=== PATIENT | male | born 1965 | race Caucasian/White ===

== ENCOUNTER 2019-11-12 12:50 | Inpatient (IN) ==
[2019-11-12] MEDS ORDERED: NITROGLYCERIN SL 0.4 MG/TAB TAB SL PRN ×2 (13:06→16:00)
[2019-11-12] MEDS ORDERED: ASPIRIN CHEW 324 MG PO STA (13:07)
--- NOTE | 2019-11-12 13:13 | Emergency Department Note ---
Impression & Plan NSTEMI (non-ST elevated myocardial infarction), Unstable angina pectoris, HTN (hypertension) ED Provider Note NAME: DEL WILLSON AGE: 54 SEX: M : 1965 ARRIVES VIA: Walk-In INFORMANT: Patient ED PROVIDER(S): Elmer Soliman DO CHIEF COMPLAINT: Chest pain HPI: Patient is a 54-year-old male who presents the ER for precordial chest pain. It started around 9 to 10 AM this morning. He describes it as a heaviness. Pain is about a 3-4 out of 10. Has some achiness in his left shoulder. No nausea vomiting, or diarrhea. No dysuria, urgency or frequency. He has never had anything like this before. He does have a history of hypertension. Denies diabetes, hyperlipidemia, CAD or sudden in his family young age. Parents do have a history of previous [place]. No other exacerbating or remitting factors. ROS: See above HPI for pertinent positives & negatives. A total of 10 systems reviewed and were otherwise negative. PAST MEDICAL HISTORY:See Below PAST SURGICAL HISTORY:See Below FAMILY HISTORY:See Below SOCIAL HISTORY:See Below HOME MEDICATIONS:See Below ALLERGIES:See Below VITALS:See Below PHYSICAL EXAMINATION: GENERAL: Sitting up in bed, alert, slightly ill-appearing, disheveled EYE EXAM: normal conjunctiva. OROPHARYNX: no exudate, no erythema, lips, buccal mucosa, and tongue normal and mucous membranes are moist NECK: supple, no nuchal rigidity, no adenopathy, non-tender LUNGS: Clear to auscultation. Normal chest wall mechanics HEART: no murmurs, S1 normal and S2 normal ABDOMEN: abdomen soft, non-tender, normo-active bowel sounds, no masses, no rebound or guarding. BACK: Back is symmetrical on inspection and there is no deformity, no midline tenderness, no CVA tenderness. SKIN: no rashes and no bruising UPPER EXTREMITIES: upper extremities are grossly normal. LOWER EXTREMITIES: No pitting edema. NEURO EXAM: Normal sensorium, cranial nerves II-XII grossly intact, normal speech, no gross weakness of arms, no gross weakness of legs. MEDICAL DECISION MAKING: Patient is a 54-year-old male who presents the ER for midsternal chest pain. Upon arrival initial EKG showed ST depressions in the high lateral leads with ST segment elevation in lead III nonspecific ST wave changes in the lateral leads. This was repeated about 10 minutes later and then repeated again. EKG did improve. He was given 1 dose of nitro and his systolic blood pressures were in the 200s. Pressures dropped down to the low 100s at baseline and eventually came back up to the 130s to 140s. Heart rate was about 60s. With the improvement of the systolic blood pressures but still persistent chest pain consulted cardiology as he was having dynamic changes. At that time troponin came back as Dr. Zapata presented to bedside and was positive. After discussion with Dr. Zapata discussed with the armored service technician who immediately presented to a 9. Patient was placed on a heparin drip after heparin bolus. He had no risk for b leeding and denied any vomiting blood, coughing up blood, urinating blood, dark tarry stools, recent surgery, recent trauma or previous brain bleeds. Labs show no significant leukocytosis or anemia. INR was unremarkable. BMP was unremarkable as well as LFTs bilirubin. Troponin was elevated 0.216. Lipase normal. Dr. Zapata discussed with Dr. Sommre and patient went directly to the Development Architect. Patient family were updated bedside multiple times. Triage Nursing notes reviewed. Prior medical records reviewed Vital Signs: reviewed and remarkable for HTN Differential diagnosis: ER treatment provided: See below Diagnostics interpreted by me: ECG: Sinus rhythm rate of [address] elevation in V3 Depressions in the high lateral Nonspecific ST wave changes in V3 through V6 New from old EKG September 2017 Second EKG Sinus rhythm rate of [address] depressions in the high lateral leads in V3 through V6 Improved from EKG #1 Third EKG Sinus rhythm rate of [address] depressions in the high lateral leads Nonspecific ST wave changes in the lateral leads Normal QTC Cardiac Monitoring: An order was placed for continuous cardiac monitoring. The monitor shows a rate of 71 with sinus rhythm. Laboratory studies: As stated above and show below. Imaging studies: Portable AP upright 1 view of the chest shows no focal infiltrate or pneumothorax Consultation(s): Discussed with Dr. Eliseo Zapata who evaluated the patient at bedside. Recommended echo and patient was taken to the Development Architect. ED COURSE: Procedures: none Critical Care: I have personally spent 80 minutes of critical care time in the direct management of this patient. This includes bedside care, interpretation of diagnostic studies, and testing, discussion with consultants, patient, and family members, and other required patient management activities. This 80 minutes is in excess of all separately billable procedures. Past Med/Surg History Medical History (Updated 11/12/19 @ 17:14 by Elmer Soliman DO) HTN (hypertension) Surgical History (Updated 11/12/19 @ 16:07 by Yvonne Saxena PA-C) History of colonoscopy Family History Father Heart disease Colorectal cancer Mother Rheumatoid arthritis Social History (Updated 11/12/19 @ 16:09 by Yvonne Saxena PA-C) Smoking Status: Never smoker Hx Alcohol Use: Yes Alcohol type: beer Alcohol Intake Frequency: Monthly or Less Hx Substance Use: No Preferred Language: Beninese Communication Ability: Effective Urban Forester Required: No Beliefs That Will Affect Care: None Current Living Situation: Spouse and Family 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 [employer] Feels Safe at Home: Yes Safety Concerns: Feels Safe At This Time Allergies Allergies Allergy/AdvReac Type Severity Reaction Status Date / Time No Known Allergies Allergy Unverified 11/12/19 13:47 Home Meds Home Medications Medication Instructions Recorded Confirmed lisinopril 10 mg PO QAM 11/12/19 11/12/19 Results & Data (ED) Vital Signs Vital Signs - 24 hr 11/12/19 12:55 11/12/19 13:00 11/12/19 13:14 Temperature 36.7 C Temperature Source Oral Pulse Rate 76 94 H Pulse Rate from SpO2 Sensor 89 Respiratory Rate 18 15 Blood Pressure 180/120 H 205/125 H Blood Pressure Mean 140 157 Pulse Oximetry 96 95 94 Oxygen Delivery Method Room Air Room Air Sepsis Recent Fever Within 48 Hours No Sepsis New/Unexplained Change in Mental Status N/A Sepsis Action Taken by Nursing No Action Required 11/12/19 13:17 11/12/19 13:20 11/12/19 13:26 Temperature Temperature Source Pulse Rate 80 66 60 Pulse Rate from SpO2 Sensor 77 66 61 Respiratory Rate 25 H 11 L 11 L Blood Pressure 153/92 H 109/66 108/71 Blood Pressure Mean 106 84 84 Pulse Oximetry 95 95 95 Oxygen Delivery Method Sepsis Recent Fever Within 48 Hours Sepsis New/Unexplained Change in Mental Status Sepsis Action Taken by Nursing 11/12/19 13:30 11/12/19 13:31 11/12/19 14:01 Temperature Temperature Source Pulse Rate 64 73 79 Pulse Rate from SpO2 Sensor 65 72 76 Respiratory Rate 22 15 21 Blood Pressure 134/80 152/97 H Blood Pressure Mean 90 115 Pulse Oximetry 95 94 95 Oxygen Delivery Method Sepsis Recent Fever Within 48 Hours Sepsis New/Unexplained Change in Mental Status Sepsis Action Taken by Nursing Laboratory Data Result diagrams: 11/12/19 13:00 11/12/19 13:00 Lab Results 11/12/19 11/12/19 11/12/19 Range/Units 13:00 13:00 13:00 WBC 9.15 (4.8-10.8) K/uL RBC 5.57 (4.7-6.1) M/uL Hgb 17.0 (14.0-18.0) g/dL Hct 47.8 (42-52) % MCV 85.8 (80-100) fL MCH 30.5 (25-34) pg MCHC 35.6 (32-36) g/dL RDW Std Deviation 41.2 (36.4-46.3) fL RDW Coeff of Terrell 13.0 (11.5-14.5) % Plt Count 284 (130-400) K/uL MPV 10.8 H (7.4-10.4) fL Immature Gran % (Auto) 0.3 % Neut % (Auto) 76.5 % Lymph % (Auto) 18.7 % [place] % (Auto) 3.8 % Eos % (Auto) 0.4 % Baso % (Auto) 0.3 % Neut # (Auto) 6.99 H (1.4-6.5) K/uL Lymph # (Auto) 1.71 (1.2-3.4) K/uL [place] # (Auto) 0.35 (0.11-0.59) K/uL Eos # (Auto) 0.04 (0-0.5) K/uL Baso # (Auto) 0.03 (0-0.2) K/uL Immature Gran # (Auto) 0.03 H (0.00-0.02) K/uL PT 9.5 (9.0-12.0) Seconds INR 0.9 (0.9-1.1) APTT 28.5 (21.0-31.0) Seconds PTT Ratio 1.0 Activ Coag Time Kaolin (94-140) SECONDS Sodium 138 (136-145) mmol/L Potassium 3.7 (3.5-5.1) mmol/L Chloride 109 H (98-107) mmol/L Carbon Dioxide 21 (21-32) mmol/L Anion Gap 8.0 (3-11) BUN 13 (7-18) mg/dl Creatinine 1.05 (0.6-1.4) mg/dl Est Cr Clr Drug Dosing 106.8 ml/min Est GFR ( Amer) 94.1 Est GFR (Non-Af Amer) 81.2 BUN/Creatinine Ratio 12.8 (10-20) Glucose 110 H (70-99) mg/dl Calcium 9.4 (8.5-10.1) mg/dl Total Bilirubin 0.4 (0.2-1) mg/dl AST 19 (15-37) U/L ALT 49 (12-78) U/L Alkaline Phosphatase 90 (45-117) U/L Troponin I 0.216 H* (0-0.045) ng/ml Total Protein 8.1 (6.4-8.2) gm/dl Albumin 3.8 (3.4-5.0) gm/dl Globulin 4.3 H (2.5-4.0) gm/dl Albumin/Globulin Ratio 0.9 (0.9-2) Lipase 157 (73-393) U/L / Range/Units 15:02 WBC (4.8-10.8) K/uL RBC (4.7-6.1) M/uL Hgb (14.0-18.0) g/dL Hct (42-52) % MCV (80-100) fL MCH (25-34) pg MCHC (32-36) g/dL RDW Std Deviation (36.4-46.3) fL RDW Coeff of Terrell (11.5-14.5) % Plt Count (130-400) K/uL MPV (7.4-10.4) fL Immature Gran % (Auto) % Neut % (Auto) % Lymph % (Auto) % [place] % (Auto) % Eos % (Auto) % Baso % (Auto) % Neut # (Auto) (1.4-6.5) K/uL Lymph # (Auto) (1.2-3.4) K/uL [place] # (Auto) (0.11-0.59) K/uL Eos # (Auto) (0-0.5) K/uL Baso # (Auto) (0-0.2) K/uL Immature Gran # (Auto) (0.00-0.02) K/uL PT (9.0-12.0) Seconds INR (0.9-1.1) APTT (21.0-31.0) Seconds PTT Ratio Activ Coag Time Kaolin 224 H (94-140) SECONDS Sodium (136-145) mmol/L Potassium (3.5-5.1) mmol/L Chloride (98-107) mmol/L Carbon Dioxide (21-32) mmol/L Anion Gap (3-11) BUN (7-18) mg/dl Creatinine (0.6-1.4) mg/dl Est Cr Clr Drug Dosing ml/min Est GFR ( Amer) Est GFR (Non-Af Amer) BUN/Creatinine Ratio (10-20) Glucose (70-99) mg/dl Calcium (8.5-10.1) mg/dl Total Bilirubin (0.2-1) mg/dl AST (15-37) U/L ALT (12-78) U/L Alkaline Phosphatase (45-117) U/L Troponin I (0-0.045) ng/ml Total Protein (6.4-8.2) gm/dl Albumin (3.4-5.0) gm/dl Globulin (2.5-4.0) gm/dl Albumin/Globulin Ratio (0.9-2) Lipase (73-393) U/L Administered Medications Heparin Sodium/Dextrose (Heparin Sodium/Dextrose) 25,000 units in 500 mls @ 20 mls/hr IV .Q24H [facility]; Protocol Stop: 12/12/19 13:44 Last Admin: 11/12/19 13:57 Dose: 1,000 units/hr, 20 mls/hr Documented by: [id number] Cosigned by: [id number] Discontinued Medications Aspirin (Aspirin Chew 324 Mg) 324 mg PO NOW STA Stop: 11/12/19 13:08 Last Admin: 11/12/19 13:10 Dose: 324 mg Documented by: [id number] Fentanyl Citrate (Fentanyl Citrate 100 Mcg/2 Ml Vial) Confirm Administered Dose 100 mcg .ROUTE .STK-MED ONE Stop: 11/12/19 14:24 Last Increment: 11/12/19 15:07 Dose: 50 mcg Documented by: [id number] Heparin Sodium (Porcine) (Heparin Sod (Porcine) 1000 Unit/Ml 10 Ml Vial) Confirm Administered Dose 10,000 units .ROUTE .STK-MED ONE Stop: 11/12/19 13:49 Last Admin: 11/12/19 13:56 Dose: 4,000 units Documented by: [id number] Cosigned by: [id number] Heparin Sodium (Porcine) (Heparin (Porcine) 1000 Unit/Ml 10 Ml (Development Architect Use Only)) Confirm Administered Dose 10,000 units .ROUTE .STK-MED ONE Stop: 11/12/19 14:24 Last Admin: 11/12/19 15:07 Dose: 8,000 units Documented by: [id number] Heparin Sodium/Dextrose (Heparin Iv Low Dose With Bolus) 1 ea IV NOW STA; Protocol Stop: 11/12/19 13:39 Last Admin: 11/12/19 13:57 Dose: Not Given Documented by: [id number] Heparin Sodium/Sodium Chloride (Heparin In Nss Infusion 1000 Unit/500 Ml (2 U/Ml) Bag) Confirm Administered Dose 3,000 units IV .STK-MED ONE Stop: 11/12/19 14:24 Last Admin: 11/12/19 15:08 Dose: 3,000 units Documented by: [id number] Midazolam HCl (Midazolam Hcl 1 Mg/Ml 2ml Vial) Confirm Administered Dose 2 mg .ROUTE .STK-MED ONE Stop: 11/12/19 14:24 Last Increment: 11/12/19 15:08 Dose: 1 mg Documented by: [id number] Nicardipine HCl (Nicardipine Hcl Inj 2.5 Mg/Ml 10 Ml Amp) Confirm Administered Dose 25 mg .ROUTE .STK-MED ONE Stop: 11/12/19 14:24 Last Admin: 11/12/19 15:07 Dose: 25 mg Documented by: [id number] Nitroglycerin (Nitroglycerin Sl 0.4 Mg/Tab Tab) 0.4 mg SL PRN PRN PRN Reason: Anesthesia Stop: 12/12/19 13:05 Last Admin: 11/12/19 13:11 Dose: 0.4 mg Documented by: [id number] Nitroglycerin/Dextrose (Nitroglycerin/D5w 100mcg/Ml 20ml Syr) Confirm Administered Dose 2,000 mcg .ROUTE .STK-MED ONE Stop: 11/12/19 14:24 Last Admin: 11/12/19 15:08 Dose: 2,000 mcg Documented by: [id number] Ticagrelor (Ticagrelor 90 Mg Tab) Confirm Administered Dose 180 mg PO .STdocumistic-MED ONE Stop: 11/12/19 15:08 Last Admin: 11/12/19 15:08 Dose: 180 mg Documented by: [id number] Discharge Plan Visit Data Chief Complaint: Chest Pain Stated Complaint: CHEST TIGHTNESS ED Provider: Elmer Soliman Discharge Problem: NSTEMI (non-ST elevated myocardial infarction), Unstable angina pectoris, HTN (hypertension) Patient Disposition: Admitted As Inpatient Discharge Instructions Interventions: ED Discharge Assessment Last Done: 11/12/19 14:19 Discharge Problem: HTN (hypertension) Qualifiers: Hypertension type: unspecified Qualified Code(s): I10 - Essential (primary) hypertension
[2019-11-12 13:30] LABS: Basophils # (auto) 0.03 K/uL (0-0.2); Basophils % (auto) 0.3 %; Eosinophils # (auto) 0.04 K/uL (0-0.5); Eosinophils % (auto) 0.4 %; Hematocrit (blood only) 47.8 % (42-52); Immature Granulocytes # (auto) 0.03 K/uL (0.00-0.02); Immature Granulocytes % (auto) 0.3 %; Lymphocytes # (auto) 1.71 K/uL (1.2-3.4); Lymphocytes % (auto) 18.7 %; Mean Corpuscular Hemoglobin 30.5 pg (25-34); Mean Corpuscular Hgb Conc 35.6 g/dL (32-36); Mean Corpuscular Volume 85.8 fL (80-100); Mean Platelet Volume 10.8 fL (7.4-10.4); Monocytes # (auto) 0.35 K/uL (0.11-0.59); Monocytes % (auto) 3.8 %; Neutrophils # (auto) 6.99 K/uL (1.4-6.5); Neutrophils % (auto) 76.5 %; Platelet Count 284 K/uL (130-400); RDW Standard Deviation 41.2 fL (36.4-46.3); Red Blood Count 5.57 M/uL (4.7-6.1); White Blood Count 9.15 K/uL (4.8-10.8)
[2019-11-12 13:35] LABS: INR 0.9 (0.9-1.1); Partial Thromboplastin Time 28.5 Seconds (21.0-31.0); Prothrombin Time 9.5 Seconds (9.0-12.0)
--- NOTE | 2019-11-12 13:37 | XRay Report ---
XR chest 1V portable HISTORY: 54 years-old Male Chest Pain acute atypical chest pain COMPARISON: None TECHNIQUE: Portable AP view of the chest FINDINGS: Cardiac silhouette is upper limits of normal in size. Mild left hemidiaphragmatic elevation. No pneum othorax, pleural effusion, overt pulmonary edema or airspace consolidation typical for pneumonia. Deg enerative changes of the shoulders and spine. IMPRESSION: No acute process. ACT 112: Negative or not required by law. The above report was generated using voice recognition software. It may contain grammatical, syntax o r spelling errors. Electronically signed by: Markie Silva M.D. 11/12/2019 1:35 PM
[2019-11-12] MEDS ORDERED: Heparin IV Low Dose WITH Bolus IV STA (13:38)
[2019-11-12 13:45] LABS: Albumin Level 3.8 gm/dl (3.4-5.0); BUN Creatinine Ratio 12.8 (10-20); Calcium 9.4 mg/dl (8.5-10.1); Creatinine Clr Calc Pharmacy 106.8 ml/min; Est GFR (African American) 94.1; Est GFR (Non-African American) 81.2; Potassium 3.7 mmol/L (3.5-5.1)
[2019-11-12] MEDS ORDERED: HEPARIN SODIUM/DEXTROSE 25,000 UNITS/500 ML BAG IV SCH (13:45)
[2019-11-12] MEDS ORDERED: HEPARIN SOD (PORCINE) 1000 UNIT/ML 10 ML VIAL ONE (13:48)
[2019-11-12 13:57] LABS: Albumin Globulin Ratio 0.9 (0.9-2); Bilirubin,Total 0.4 mg/dl (0.2-1); Globulin 4.3 gm/dl (2.5-4.0); Total Protein 8.1 gm/dl (6.4-8.2); Troponin I 0.216 ng/ml (0-0.045)
[2019-11-12] MEDS ORDERED: HEPARIN (PORCINE) 1000 UNIT/ML 10 ML (CATH LAB USE ONLY) ONE (14:23)
[2019-11-12] MEDS ORDERED: MIDAZOLAM HCL 1 MG/ML 2ML VIAL ONE (14:23)
[2019-11-12] MEDS ORDERED: NITROGLYCERIN/D5W 100MCG/ML 20ML SYR ONE (14:23)
[2019-11-12] MEDS ORDERED: fentaNYL citrate 100 MCG/2 ML VIAL ONE (14:23)
[2019-11-12] MEDS ORDERED: NiCARDipine HCL INJ 2.5 MG/ML 10 ML AMP ONE (14:23)
--- NOTE | 2019-11-12 14:27 | Cardiology Consultation ---
Date of Consultation November 12, 2019 Assessment & Plan (1) Substernal precordial chest pain: 54-year-old male with history of hypertension, dyslipidemia presents now with approximately 4 hours substernal chest pain radiating to left arm occurring initially at rest with transient ST elevation noted on EKG and elevated troponin on initial settings consistent with acute coronary syndrome versus hypertensive urgency. Discussed findings in detail with patient recommended proceeding directly d iagnostic cardiac catheterization. IV heparin already initiated in the emergency room Further recommendations to follow (2) Elevated troponin: (3) Hypertensive urgency: (4) Dyslipidemia: History of Present Illness Reason for Consultation: Acute chest pain, elevated troponin Requesting Physician: Dr. Soliman Attending Physician: Dr. Brown History of Present Illness Patient is a 54-year-old male without prior history of cardiac disease his underlying medical issues are notable predominantly for hypertension, mild dyslipidemia and familial history of coronary artery disease . Patient was in usual state of health until this morning when he awoke just "not feeling well" Shortly after he began experiencing symptoms of chest pressure beginning approximately 10 AM this morning. Symptoms worsened to radiate down left shoulder which resulted in ER presentation. On initial ER evaluation patient was significantly hypertensive complaining of chest pain 5-6 out of 10. He was given 1 sublingual nitroglycerin with improvement in symptoms though without complete relief but with improvement hypertension. Initial EKG demonstrated transient ST elevation in lead III with ST depression in lead I Troponin elevated 0.2 Echocardiogram done urgently demonstrated generally preserved LV systolic function with subtle hypokinesis of the posterior wall at the base. Aortic root appeared normal in size and without pathology Patient denies fevers chills sweats recent illness or cold. Notes no melena medication dysuria hematuria. Notes no prior complications with dye administrat ion or sedation No recent or upcoming surgeries planned. No bleeding issues. No recent or upcoming surgeries. No headache visual changes or neurologic complaints. Appetite's been good weight been trending slightly upward. Does note difficulty sleeping at night with marked stressors per . Rare alcohol use, lifelong non-smoker. Lifestyle sedentary Allergies Allergy/AdvReac Type Severity Reaction Status Date / Time No Known Allergies Allergy Unverified 11/12/19 13:47 Home Medications Home Medications Medication Instructions Recorded Confirmed Type lisinopril 10 mg PO QAM 11/12/19 11/12/19 History Patient History Social History Smoking Status: Never smoker Hx Substance Use: No Feels Safe at Home: Yes Review of Systems Review of Systems: All systems reviewed & are unremarkable except as noted in HPI & below Physical Exam Constitutional: WD/WN, vitals as above + obese In mild distress Blood pressures equal in both arms Eyes: PERRL, conjunctivae normal, anicteric sclerae ENMT: external ear and nose normal, oropharynx normal Neck: trachea midline, no thyromegaly Respiratory: normal respiratory effort, lungs clear to auscultation Cardiovascular: Rate/Rhythm: regular rate and regular rhythm Heart Sounds: normal S1 and normal S2; no gallop and no murmur Palpation: normal PMI Vessels: normal carotid upstroke and radial pulses present; no JVD and no carotid bruit Extremities: no edema Gastrointestinal (Abdomen): normal bowel sounds, soft, nontender, no hepatosplenomegaly Femoral pulses equal bilaterally. No femoral or abdominal bruits Musculoskeletal: no cyanosis or clubbing, extremities motor strength 5/5 Skin: no rashes, warm and dry Neurologic: PERRL, EOMI, accommodation nl, no face palsy, no dysarthria Psychiatric: A+Ox3, euthymic affect Results & Data ([facility]) Vital Signs (Past 12 Hours) Vital Signs Temp Pulse Resp BP Pulse Ox 11/12/19 14:01 79 21 152/97 H 95 11/12/19 13:31 73 15 94 11/12/19 13:30 64 22 134/80 95 11/12/19 13:26 60 11 L 108/71 95 11/12/19 13:20 66 11 L 109/66 95 11/12/19 13:17 80 25 H 153/92 H 95 11/12/19 13:14 94 11/12/19 13:00 94 H 15 205/125 H 95 11/12/19 12:55 36.7 C 76 18 180/120 H 96 Laboratory Results Laboratory Results - last 24 hr 11/12/19 11/12/19 11/12/19 13:00 13:00 13:00 WBC 9.15 RBC 5.57 Hgb 17.0 Hct 47.8 MCV 85.8 MCH 30.5 MCHC 35.6 RDW Std Deviation 41.2 RDW Coeff of Terrell 13.0 Plt Count 284 MPV 10.8 H Immature Gran % (Auto) 0.3 Neut % (Auto) 76.5 Lymph % (Auto) 18.7 [place] % (Auto) 3.8 Eos % (Auto) 0.4 Baso % (Auto) 0.3 Neut # (Auto) 6.99 H Lymph # (Auto) 1.71 [place] # (Auto) 0.35 Eos # (Auto) 0.04 Baso # (Auto) 0.03 Immature Gran # (Auto) 0.03 H PT 9.5 INR 0.9 APTT 28.5 PTT Ratio 1.0 Sodium 138 Potassium 3.7 Chloride 109 H Carbon Dioxide 21 Anion Gap 8.0 BUN 13 Creatinine 1.05 Est Cr Clr Drug Dosing 106.8 Est GFR ( Amer) 94.1 Est GFR (Non-Af Amer) 81.2 BUN/Creatinine Ratio 12.8 Glucose 110 H Calcium 9.4 Total Bilirubin 0.4 AST 19 ALT 49 Alkaline Phosphatase 90 Troponin I 0.216 H* Total Protein 8.1 Albumin 3.8 Globulin 4.3 H Albumin/Globulin Ratio 0.9 Lipase 157
--- NOTE | 2019-11-12 14:30 | Pre Anesthesia Assessment ---
Date of Service November 12, 2019 Pre Sedation Assessment Vital Signs Temp Pulse Resp BP Pulse Ox 11/12/19 14:01 79 21 152/97 H 95 11/12/19 13:31 73 15 94 11/12/19 13:30 64 22 134/80 95 11/12/19 13:26 60 11 L 108/71 95 11/12/19 13:20 66 11 L 109/66 95 11/12/19 13:17 80 25 H 153/92 H 95 11/12/19 13:14 94 11/12/19 13:00 94 H 15 205/125 H 95 11/12/19 12:55 98.1 F 76 18 180/120 H 96 Cardiovascular RRR, no murmur, no edema Respiratory normal respiratory effort, lungs clear to auscultation Pre-Sedation Airway Assessment Smoking Status: Never smoker Hx Sleep Apnea: No Hx Difficult Intubation: No Short, Thick Neck: No Thyromental Distance: > or= 3.5 Finger Breadths Mallampati Class: III ASA: ASA3 Procedure Planning Contraindications for Sedation: none Current Medications Reviewed: Yes Notes The planned sedation has been discussed with the patient. Informed Consent was obtained. I have identified the patient, determined the appropriateness of sedation and have assessed the patient immediately prior to the procedure. All medicine(s) and interventions are by my order.
[2019-11-12] MEDS ORDERED: TICAGRELOR 90 MG TAB PO ONE (15:07)
--- NOTE | 2019-11-12 15:11 | Post Anesthesia Assessment ---
Date of Service November 12, 2019 Post Sedation Assessment Vital Signs Temp Pulse Resp BP Pulse Ox 11/12/19 14:01 79 21 152/97 H 95 11/12/19 13:31 73 15 94 11/12/19 13:30 64 22 134/80 95 11/12/19 13:26 60 11 L 108/71 95 11/12/19 13:20 66 11 L 109/66 95 11/12/19 13:17 80 25 H 153/92 H 95 11/12/19 13:14 94 11/12/19 13:00 94 H 15 205/125 H 95 11/12/19 12:55 98.1 F 76 18 180/120 H 96 Recovery Score Activity: Moves 4 extremities Respiration: Deep Breath/Cough Circulation: +/-20% PreAnes Value Consciousness: Fully Awake Oxygen Saturation: O2 needed for >90% Discharge Sedation Level of Care: Fast Track Phase II Post Sedation Plan On clinical assessment, the patient appears to have tolerated the sedation without complications. Patient is recovering as anticipated. Patient will continue to be monitored by nursing and may be discharged when sedation discharge criteria are met per below protocol. Upon Completions of procedure up to 15 minutes continue every 5 minute vital signs and the P.A.R. score; then discharge to a Phase I or Fast Track to Phase II per the following guidelines: * Discharge Patient to appropriate Phase II area if PAR is 8 or greater or return to pre- procedure baseline. The post - procedure orders will be as directed. * If PAR score is less than 8 or not return to pre-procedure baseline then patient will follow Phase I monitoring till PAR is reached for Phase II. The Phase I may be done in procedure room or may call to secure a Phase I area. * If naloxone or flumazenil are used for reversal, hold in Phase I for continued monitoring from when last reversal dose was given for a minimum of 60 minutes or longer pending the nurse and/or physician discretion of patient condition before discharge to Phase II. Please call the Sedation Physician to re-evaluate and complete post-note for discharge to Phase II area. Do NOT discharge from procedure sedation or Phase 1 until post- sedation evaluation note is complete by procedure /sedation MD Sedation Discharge Instructions to be given to the patient at discharge to home.
[2019-11-12] MEDS ORDERED: SODIUM CHLORIDE 0.9% 1000ML 1,000 ML IV SCH (15:30)
--- NOTE | 2019-11-12 15:32 | Cardiac Catheterization ---
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 Cardiac Status Clinical evaluation leading to the procedure CAD Presenation: Non STEMI Anginal Classification: CCS IV Heart Failure: No Cardiogenic Shock within 24 Hours: No Cardiac Arrest within 24 Hours: No Imaging Studies Past 6 Months: Yes Stress Studies Past 6 Months: No Diagnostic Physicians Name: Tony Sommer MD Status: Urgent Closure Device Percutaneous Entry Location: Radial Closure Device: Radial Band Recommendations: PCI without planned CABG PCI Indication: PCI for high risk Non-LIZZ Lesion Segment Name: Mid RCA Culprit Artery: Yes Stenosis Prior to Rx (%): 100 Chronic Total Occlusion: No IVUS: No FFR: No Pre-Procedure RAIN Flow: 0 Previously Treated Lesion: No Lesion Complexity: Non-High/Non-C Lesion Length (mm): 15 Thrombus Present: Yes Bifurcation Lesion: No Guidewire Across Lesion: Stenosis Post-Procedure (%): 0 Post-Procedure RAIN Flow: 3 Devices(s) Deployed: Yes Yes Intraprocedure Events Significant Disection: No Perforation: No Cardiac Cath Procedure Full Procedure Date November 12, 2019 Pre-Procedure Diagnosis Pre-Procedure Diagnosis: Non STEMI AUC Score AUC Score: 8 Post-Procedure Diagnosis Post-Procedure Diagnosis: Severe CAD, Successful PCI and Normal Intracardiac Pressures Procedure(s) Performed Procedure(s) Performed: Coronary Angiography, Left Heart Cath and Drug Eluting Stent Human Resources Services Specialist Tony Sommer MD Pan Washer Hand(s) Carrasco Estimated Blood Loss Estimated Blood Loss: 15 Medication(s) Medication(s): Fentanyl, Heparin, Lidocaine 1%, Nicardipine, Nitroglycerin and Versed Medication(s): Ticagrelor Summary of Findings Indication: High risk NSTEMI with subtle inferior ST elevation Access: 6 Fr slender right radial artery Catheters: Valliant, JL 3.5, JR4 guide Findings: LM -large caliber, angiographically normal LAD -medium caliber vessel, proximal luminal irregularities, distal vessel widely patent as wraps around apex. Large second diagonal with 20 to 30% proximal disease Circumflex -medium caliber, proximal luminal irregularities. Large caliber OM 2 with 30 to 40% disease in proximal aspect of inferior branch. RCA -dominant, medium caliber, 100% acute mid RCA occlusion LVEDP -14 -- PCI -- Antithrombotic therapy: Heparin, ticagrelor Procedure: RCA cannulated with JR4 guide BMW wire passed across lesion into distal vessel Mid RCA lesion predilated with 2.5 compliant balloon Dilated lesion stented with 3.0 x 22 mm Torsten drug-eluting Stent post-dilated with 3.5 noncompliant balloon IC vasodilators administered for spasm Post procedure RAIN 3 flow, stent well expanded with minimal residual stenosis and no apparent cardiac complications. Arterial Closure: TR band Summary: 1. Acute 100% mid RCA occlusion 2. Mild non-culprit coronary artery disease 3. Normal intracardiac filling pressure 4. Successful PCI of mid RCA with single drug-eluting stent (3.0 x 22 Torsten; postdilated with 3.5 NC) Recommendations: Admit to PCU for continued monitoring Loaded with ticagrelor 180 mg in Diesel Instructor Continue dual-antiplatelet therapy for at least 1 year. Trend troponins until peak Uptitrate beta-steve/HIPOLITO as BP allows High-dose statin Consult cardiac Rehab Hemodynamics Rest Ao:: 135/80/102 Final Ao: 115/72/90 LV: 131/14 Recommendations Recommendations: PCI without planned CABG Specimens Specimens: None Radiation Exposure (mGy) 1788 Contrast (mls) 65 Fluids (cc crystalloids) Fluids (cc crystalloids): 52 Drains Drains: None Anesthesia Moderate Procedural Complication(s) None Disposition PCU I attest to the content of the Intraoperative Record and any orders documented therein. Any exceptions are noted below. [facility] Card Cath Procedure Codes Cardiac Catheterization Procedure 1: Cardiovascular Cath Procedures: 11137 Coronaries and LHC (+/-LV) Moderate Sedation Procedure 1: Sedation/Anesthesia: 49082 Mod Sedation by the same physician;Init15 Min Child Age 5 & Up Procedure 2: Sedation/Anesthesia: 59289 Mod Sedation by the same physician; Ea [id number] Minutes Stenting Procedure 1: Cardiovascular Stent Procedures: 44548 Perc transluminal revascularization of acute sub/total occl, aMI PG Care Time/CCT Total # of Minutes Spent Total Time Spent with Patient: Total time spent is greater than 50% in c oordination of care (as documented) at patient's floor/unit and/or counseling patient:
[2019-11-12] MEDS ORDERED: ACETAMINOPHEN 325 MG TAB PO PRN (16:00)
[2019-11-12] MEDS ORDERED: ONDANSETRON INJ 2 MG/ML 2 ML VIAL IV PRN (16:00)
[2019-11-12] MEDS ORDERED: MoRPHine SULFATE 10 MG/ML CARP/VIAL IV PRN (16:00)
--- NOTE | 2019-11-12 16:06 | History & Physical Report ---
Date of Service November 12, 2019 Assessment & Plan (1) NSTEMI (non-ST elevated myocardial infarction): This is a 54yo M with a PMH of HTN and mild dyslipidemia who presented to ED earlier today with NSTEMI and is s/p PCI to mid RCA. -Initial EKG with transient ST elevation in lead III and troponin of 0.216 in setting of elevated BP of 180/120 and chest pain -Dr. Zapata evaluated patient with bedside echo revealing preserved LV systolic function with subtle hypokinesis of the posterior wall at the base -Underwent cardiac catheterization by Dr. Sommer and found to have acute 100% mid RCA occlusion. S/p ROXANA x 1 to mid RCA -Loaded with ticagrelor 180 mg in Probe Operator. Continue dual-antiplatelet therapy for at least 1 year. -Admit to PCU for continued monitoring- Per Dr. Sommer: trend troponin until peak, up-titrate beta-steve/HIPOLITO as BP allows, high-dose statin, cardiac rehab consulted (2) HTN (hypertension): Started on metoprolol tartrate 25mg BID. Continue home lisinopril dose (3) Dyslipidemia: Atorvastatin 80mg daily DVT Ppx: SCDs for now Code status: FULL PCP: Dior Dispo: Admitted to PCU. Plan to return home once medically stable. Patient seen in collaboration with Dr. Brown. Please see addendum. History of Present Illness Chief Complaint: CP Primary Care Provider: Osmany Rader DO This is a 54yo M with a PMH of HTN and mild dyslipidemia who presented to ED earlier today with chest pain and is s/p PCI to mid RCA. Woke up this morning tired and developed chest pressure around 9 am. Pain was described as 5/10 pres sure with radiation to left shoulder. Upon arrival to ED, patient noted to elevated BP at 180/120 as well as initial EKG with transient ST elevation in lead III. Was given 1 sublingual nitroglycerin with improvement in symptoms. Repeat EKG still with mild ST depression in V3 through V6 but resolution of ST elevation in III. Initial troponin elevated at 0.216. Dr. Zapata evaluated the patient in ED with bedside echo revealing preserved LV systolic function with subtle hypokinesis of the posterior wall at the base. Patient then taken to the Probe Operator, where he was found to have acute 100% mid RCA occlusion and underwent PCI by Dr. Sommer with 1 drug-eluting stent to mid RCA. Patient seen and evaluated upon arrival to PCU. Lightheadedness and chest pressure have resolved. Still feeling tired with some mild residual chest discomfort, /. Denies any fever, chills, visual changes, palpitations, SOB, wheezing, abdominal pain, nausea, vomiting, dysuria, diarrhea or constipation. 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 Allergies Allergy/AdvReac Type Severity Reaction Status Date / Time No Known Allergies Allergy Unverified 11/12/19 13:47 Home Medications Home Medications Medication Instructions Recorded Confirmed Type lisinopril 10 mg PO QAM 11/12/19 11/12/19 History Past Med/Surg History Medical History (Updated 11/12/19 @ 17:14 by Elmer Soliman DO) HTN (hypertension) Surgical History (Updated 11/12/19 @ 16:07 by Yvonne Saxena PA-C) History of colonoscopy Family History Father Heart disease Colorectal cancer Mother Rheumatoid arthritis Social History Smoking Status: Never smoker Hx Alcohol Use: Yes Alcohol type: beer Alcohol Intake Frequency: Monthly or Less Hx Substance Use: No Preferred Language: Serbian Communication Ability: Effective Director Foundation Required: No Beliefs That Will Affect Care: None Current Living Situation: Spouse and Family 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 Physical Exam Physical Exam: General Appearance: WD/WN, vitals as above, NAD, sitting up in bed, pleasant, conversing easily Head: normocephalic, atraumatic Eyes: normal inspection, PERRL, conjunctivae normal, anicteric sclerae ENT: external ear and nose normal, oropharynx normal Neck: normal visual inspection, trachea midline, no thyromegaly Respiratory: normal respiratory effort, lungs clear to auscultation, no wheeze, rales, rhonchi. No accessory muscle use Cardiovascular: regular rate, rhythm, no murmur, normal peripheral pulses, no BLE edema. Vessels: no JVD Chest: normal inspection of chest Abdomen/GI: normal bowel sounds, soft, nontender, no hepatosplenomegaly Extremities/Musculoskeletal: no cyanosis or clubbing, extremities motor strength 5/5 Neurologic: PERRL, EOMI, accommodation nl, no face palsy, no dysarthria, CN's II-XI intact bilaterally and moves all extremities Psychiatric: A+Ox3, euthymic affect Skin: no rashes, normal color, warm/dry Results & Data Results & Data ([facility]) Vital Signs (Past 12 Hours) Vital Signs Temp Pulse Pulse Resp BP BP Pulse Ox 11/12/19 15:45 62 18 128/83 98 11/12/19 15:30 62 18 148/86 H 98 11/12/19 15:15 85 148/86 H 98 11/12/19 14:01 79 21 152/97 H 95 11/12/19 13:31 73 15 94 11/12/19 13:30 64 22 134/80 95 11/12/19 13:26 60 11 L 108/71 95 11/12/19 13:20 66 11 L 109/66 95 11/12/19 13:17 80 25 H 153/92 H 95 11/12/19 13:14 94 11/12/19 13:00 94 H 15 205/125 H 95 11/12/19 12:55 36.7 C 76 18 180/120 H 96 Laboratory Results Short CBC 11/12/19 Range/Units 13:00 WBC 9.15 (4.8-10.8) K/uL Hgb 17.0 (14.0-18.0) g/dL Hct 47.8 (42-52) % Plt Count 284 (130-400) K/uL BMP 11/12/19 13:00 Sodium 138 Potassium 3.7 Chloride 109 H Carbon Dioxide 21 BUN 13 Creatinine 1.05 Glucose 110 H Calcium 9.4 Cardiac Enzymes 11/12/19 Range/Units 13:00 Troponin I 0.216 H* (0-0.045) ng/ml Liver Function 11/12/19 Range/Units 13:00 Total Bilirubin 0.4 (0.2-1) mg/dl AST 19 (15-37) U/L ALT 49 (12-78) U/L Alkaline Phosphatase 90 (45-117) U/L Albumin 3.8 (3.4-5.0) gm/dl Diagnostic Findings CXR: IMPRESSION: No acute process. ECG Findings: + ST depression and + ST elevation Additional Comments: see HPI for details Code Status & VTE Plan VTE Prophylaxis Plan VTE Prophylaxis will be ordered: Yes Supervising Physician Co-Signing Physician Notes I have seen and examined the patient and have discussed the case with the provider above. I agree with the assessment and plan as stated. 54 yo / with NSTEMI, s/p evaluation in the laborer operator with mid RCA stent. Currently free of pain, nausea and feeling well. He denies SOB. My findings reflect that listed above. Cont medical management with any other cardiology recs at discharge. DO Omkar Brown
--- NOTE | 2019-11-12 16:30 | Electrocardiogram Report ---
Test Reason : Blood Pressure : / mmHG Vent. Rate : 076 BPM Atrial Rate : 076 BPM P-R Int : 142 ms QRS Dur : 102 ms QT Int : 340 ms P-R-T Axes : 058 054 082 degrees QTc Int : 382 ms Sinus rhythm with marked sinus arrhythmia Possible Left atrial enlargement Minimal voltage criteria for LVH, may be normal variant Lateral ST abnormality Abnormal ECG No previous ECGs available Confirmed by Glen Maloney ([id number]) on 11/12/2019 4:29:51 PM Referred By: ER Confirmed By:Glen Maloney
--- NOTE | 2019-11-12 16:30 | Electrocardiogram Report ---
Test Reason : Blood Pressure : / mmHG Vent. Rate : 065 BPM Atrial Rate : 065 BPM P-R Int : 140 ms QRS Dur : 102 ms QT Int : 400 ms P-R-T Axes : 051 046 047 degrees QTc Int : 416 ms Normal sinus rhythm Nonspecific T wave abnormality Abnormal ECG When compared with ECG of 12-NOV-2019 13:10, (unconfirmed) No significant change was found Confirmed by Glen Maloney ([id number]) on 11/12/2019 4:30:11 PM Referred By: Osmany Rader Confirmed By:Glen Maloney
[2019-11-12] MEDS: METOPROLOL TARTRATE 25 MG TAB PO SCH (20:45)
[2019-11-13 03:40] LABS: Basophils # (auto) 0.02 K/uL (0-0.2); Basophils % (auto) 0.2 %; Eosinophils # (auto) 0.13 K/uL (0-0.5); Eosinophils % (auto) 1.5 %; Hematocrit (blood only) 46.5 % (42-52); Hemoglobin 15.9 g/dL (14.0-18.0); Immature Granulocytes # (auto) 0.02 K/uL (0.00-0.02); Immature Granulocytes % (auto) 0.2 %; Lymphocytes # (auto) 2.41 K/uL (1.2-3.4); Lymphocytes % (auto) 27.6 %; Mean Corpuscular Hemoglobin 29.7 pg (25-34); Mean Corpuscular Hgb Conc 34.2 g/dL (32-36); Mean Corpuscular Volume 86.9 fL (80-100); Mean Platelet Volume 10.6 fL (7.4-10.4); Monocytes # (auto) 0.57 K/uL (0.11-0.59); Monocytes % (auto) 6.5 %; Neutrophils # (auto) 5.59 K/uL (1.4-6.5); Platelet Count 258 K/uL (130-400); RDW Coefficient of Variation 13.4 % (11.5-14.5); RDW Standard Deviation 42.4 fL (36.4-46.3); Red Blood Count 5.35 M/uL (4.7-6.1); White Blood Count 8.74 K/uL (4.8-10.8)
[2019-11-13 03:58] LABS: BUN Creatinine Ratio 11.3 (10-20); Calcium 8.5 mg/dl (8.5-10.1); Creatinine Clr Calc Pharmacy 108.4 ml/min; Est GFR (African American) 95.2; Est GFR (Non-African American) 82.2; Potassium 3.9 mmol/L (3.5-5.1)
[2019-11-13 04:25] LABS: Troponin I 46.8 ng/ml (0-0.045)
[2019-11-13] MEDS ORDERED: TICAGRELOR 90 MG TAB PO SCH (06:00)
[2019-11-13 06:55] LABS: Estimated Average Glucose 114 mg/dl; Hemoglobin A1C 5.6 % (4.5-5.6)
[2019-11-13] MEDS: METOPROLOL TARTRATE 25 MG TAB PO SCH (08:05)
[2019-11-13] MEDS ORDERED: lisinopriL 5 MG TAB PO SCH (09:00)
[2019-11-13] MEDS ORDERED: ASPIRIN 81 MG ECTAB PO SCH (09:00)
[2019-11-13] MEDS ORDERED: ATORVASTATIN 40 MG TAB PO SCH (09:00)
--- NOTE | 2019-11-13 10:32 | Hospitalist Progress Note ---
Date of Service November 13, 2019 Assessment & Plan (1) NSTEMI (non-ST elevated myocardial infarction): NSTEMI (non-ST elevated myocardial infarction) s/p PCI (Percutaneous coronary intervention) of mid RCA with single drug-eluting coronary stent placement -This is a 54yo M with a PMH of HTN and mild dyslipidemia who presented to ED earlier today with NSTEMI and is s/p PCI to mid RCA. -11/12/2019: Initial EKG with transient ST elevation in lead III and troponin of 0.216 in setting of elevated BP of 180/120 and chest pain ; Dr. Zapata evaluated patient with bedside echo revealing preserved LV systolic function with subtle hypokinesis of the posterior wall at the base; Underwent cardiac catheterization by Dr. Sommer and found to have acute 100% mid RCA occlusion. S/p ROXANA x 1 to mid RCA ; Loaded with ticagrelor 180 mg in Final Inspector Paper. Continue dual-antiplatelet therapy for at least 1 year. -Cardiology Dr. Zapata discussed with hospitalist than patient can be discharged. Dr. Zapata to coordinate future outpatient cardiac care such as cardiac rehab -patient advised to avoid lifting above 10 pounds with right arm for 1 week because that was where the cardiac cath access site was -discharge medications sent to [facility] [address] [place] [address], [place] [address] of aspirin 81 mg daily and Brillinta twice a day - will need to take for at least 1 year to prevent coronary artery stent occlusion of metoprolol tartrate 25 mg twice a day and lisinopril 5 mg daily and atorvastatin 80 mg daily for cardiac protection, blood pressure, and hyperlipidemia of nitro sublingual every 5 minutes up to 3 doses if needed for chest pain. patient should seek medical care if chest pain persists -scheduled appointments on [facility] 11/17/2019 1:00 PM Provider Eliseo Zapata MD Department Cardiology, [facility] 11/17/2019 3:00 PM Provider Osmany Rader DO Department Family Practice [facility] (2) HTN (hypertension): metoprolol tartrate 25 mg twice a day and lisinopril 5 mg daily (3) Dyslipidemia: -Atorvastatin 80mg daily Code status: FULL Admission and Anticipated Discharge Date Admission Date: November 12, [address] Zapata discussed with hospitalist than patient can be discharged. Dr. Zapata to coordinate future outpatient cardiac care such as cardiac rehab patient ambulatory. denies chest pain. breathing on room air. no shortness of breath. no dizziness. no nausea. no vomiting Review of Systems Review of Systems: All systems reviewed & are unremarkable except as noted in Subjective Physical Exam Constitutional: comfortable Eyes: PERRL, conjunctivae normal, anicteric sclerae EOM intact bilaterally ENMT: external ear and nose normal, oropharynx normal Neck: trachea midline, no thyromegaly normal visual inspection Respiratory: normal respiratory effort, lungs clear to auscultation Cardiovascular: RRR, no murmur, no edema Gastrointestinal (Abdomen): normal bowel sounds, soft, nontender, no hepatosplenomegaly Musculoskeletal: Head/Neck/Chest: normocephalic and head atraumatic Neurologic: PERRL, EOMI, accommodation nl, no face palsy, no dysarthria CN's II-XI intact bilaterally Psychiatric: A+Ox3, euthymic affect Results & Data Results & Data ([facility]) Vital Signs (Past 12 Hours) Vital Signs Temp Pulse Pulse Resp BP Pulse Ox 11/13/19 07:44 36.7 C 71 18 130/88 95 11/13/19 03:35 36.6 C 65 18 124/78 95 11/13/19 00:00 64 11/12/19 23:29 36.8 C 63 18 134/81 95 (1) HTN (hypertension) Hypertension type: unspecified Qualified Code(s): I10 - Essential (primary) hypertension
--- NOTE | 2019-11-13 10:38 | Discharge Summary ---
Date of Service November 13, 2019 Admission HPI Per Admitting Provider This is a 54yo M with a PMH of HTN and mild dyslipidemia who presented to ED earlier today with chest pain and is s/p PCI to mid RCA. Woke up this morning tired and developed chest pressure around 9 am. Pain was described as 5/10 pressure with radiation to left shoulder. Upon arrival to ED, patient noted to elevated BP at 180/120 as well as initial EKG with transient ST elevation in lead III. Was given 1 sublingual nitroglycerin with improvement in symptoms. Repeat EKG still with mild ST depression in V3 through V6 but resolution of ST elevation in III. Initial troponin elevated at 0.216. Dr. Zapata evaluated the patient in ED with bedside echo revealing preserved LV systolic function with subtle hypokinesis of the posterior wall at the base. Patient then taken to the Label Folder, where he was found to have acute 100% mid RCA occlusion and underwent PCI by Dr. Sommer with 1 drug-eluting stent to mid RCA. Patient seen and evaluated upon arrival to PCU. Lightheadedness and chest pressure have resolved. Still feeling tired with some mild residual chest discomfort, 1/10. Denies any fever, chills, visual changes, palpitations, SOB, wheezing, abdominal pain, nausea, vomiting, dysuria, diarrhea or constipation. 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 NSTEMI (non-ST elevated myocardial infarction) s/p PCI (Percutaneous coronary intervention) of mid RCA with single drug-eluting coronary stent placement HTN (hypertension) Hyperlipidemia Discharge Exam Constitutional comfortable Eyes PERRL, conjunctivae normal, anicteric sclerae EOM intact bilaterally ENMT external ear and nose normal, oropharynx normal Neck trachea midline, no thyromegaly normal visual inspection Respiratory normal respiratory effort, lungs clear to auscultation Cardiovascular RRR, no murmur, no edema Gastrointestinal (Abdomen) normal bowel sounds, soft, nontender, no hepatosplenomegaly Musculoskeletal Head/Neck/Chest: normocephalic and head atraumatic Neurologic PERRL, EOMI, accommodation nl, no face palsy, no dysarthria CN's II-XI intact bilaterally Psychiatric A+Ox3, euthymic affect Discharge Data Allergies Allergy/AdvReac Type Severity Reaction Status Date / Time No Known Allergies Allergy Unverified 11/12/19 13:47 Consultations 11/12/19 14:06 ED Decision to Admit Stat 11/12/19 15:21 Consult Cardiac Rehabilitation Routine 11/12/19 15:49 Consult Cardiology Routine 11/13/19 07:44 Consult Internal Medicine Routine Procedures Performed Operation Date: 11/12/19 14:15 Actual Procedures s Cath, Left with Cors and Vent - Andrew Sommer MD p Aspiration/PCI w/ROXANA for Stemi - Andrew Sommer MD s Cineradiography w/Routine Exam - Andrew Sommer MD Ordered Studies 11/12/19 14:15 CL Cath Imgs for PACS use only Stat Hospital Course (1) NSTEMI (non-ST elevated myocardial infarction): NSTEMI (non-ST elevated myocardial infarction) s/p PCI (Percutaneous coronary intervention) of mid RCA with single drug-eluting coronary stent placement -This is a 54yo M with a PMH of HTN and mild dyslipidemia who presented to ED earlier today with NSTEMI and is s/p PCI to mid RCA. -11/12/2019: Initial EKG with transient ST elevation in lead III and troponin of 0.216 in setting of elevated BP of 180/120 and chest pain ; Dr. Zapata evaluated patient with bedside echo revealing preserved LV systolic function with subtle hypokinesis of the posterior wall at the base; Underwent cardiac catheterization by Dr. Sommer and found to have acute 100% mid RCA occlusion. S/p ROXANA x 1 to mid RCA ; Loaded with ticagrelor 180 mg in Label Folder. Continue dual-antiplatelet therapy for at least 1 year. -Cardiology Dr. Zapata discussed with hospitalist than patient can be discharged. Dr. Zapata to coordinate future outpatient cardiac care such as cardiac rehab -patient advised to avoid lifting above 10 pounds with right arm for 1 week bec ause that was where the cardiac cath access site was -discharge medications sent to [facility] [address] [place] [address], [place] [address] of aspirin 81 mg daily and Brillinta twice a day - will need to take for at least 1 year to prevent coronary artery stent occlusion of metoprolol tartrate 25 mg twice a day and lisinopril 5 mg daily and atorvastatin 80 mg daily for cardiac protection, blood pressure, and hyperlipidemia of nitro sublingual every 5 minutes up to 3 doses if needed for chest pain. patient should seek medical care if chest pain persists -scheduled appointments on [facility] 11/17/2019 1:00 PM Provider Eliseo Zapata MD Department Cardiology, [facility] 11/17/2019 3:00 PM Provider Osmany Rader DO Department [facility] (2) HTN (hypertension): metoprolol tartrate 25 mg twice a day and lisinopril 5 mg daily (3) Dyslipidemia: -Atorvastatin 80mg daily Code status: FULL Total Time Total Time Spent Total Time Spent (In Minutes): 40 minutes Total Time Includes: Examination of the Patient, Discharge Planning, Medication Reconciliation and Communication With Other Providers Discharge Plan Discharge Items Patient Disposition: Home - Self-Care Reason For Visit: ACUTE MA Discharge Diagnosis: NSTEMI (non-ST elevated myocardial infarction) s/p PCI (Percutaneous coronary intervention) of mid RCA with single drug-eluting coronary stent placement HTN (hypertension) Hyperlipidemia Condition on Discharge: Good Activity: Per Instructions section Lifting Comment: avoid lifting above 10 pounds for 1 week of the right arm Non-emergency contact: Primary Care Provider and Banquet Kitchen Supervisor Call non-emergency contact if: you have any medication questions Follow-up/Referrals: Osmany Rader DO [Primary Care Provider] - Diet: Heart Healthy Mickey Attending Provider Instructions: discharge medications sent to [facility] [address] [place] [address], [place] [address] of aspirin 81 mg daily and Brillinta twice a day - will need to take for at least 1 year to prevent coronary artery stent occlusion of metoprolol tartrate 25 mg twice a day and lisinopril 5 mg daily and atorvastatin 80 mg daily for cardiac protection, blood pressure, and hyperlipidemia of nitro sublingual every 5 minutes up to 3 doses if needed for chest pain. patient should seek medical care if chest pain persists scheduled appointments on [facility] 11/17/2019 1:00 PM Provider Eliseo Zapata MD Department Cardiology, [facility] 11/17/2019 3:00 PM Provider Osmany Rader DO Department [facility] Add Shingle Weaver Provider Instructions: 1. Acute 100% mid RCA occlusion 2. Mild non-culprit coronary artery disease 3. Normal intracardiac filling pressure 4. Successful PCI of mid RCA with single drug-eluting stent (3.0 x 22 Torsten; postdilated with 3.5 NC) Pending Studies at Discharge: No Stand-Alone Forms: [facility], Smoking Cessation Medications and DC Order Prescriptions: New Brilinta 90 mg Tablet 90 mg PO BID 30 Days Qty: 60 RF: 0 atorvastatin 40 mg Tablet 80 mg PO QAM 30 Days Qty: 60 RF: 0 aspirin 81 mg Tablet,Delayed Release (Dr/Ec) 81 mg PO QAM 30 Days Qty: 30 RF: 0 metoprolol tartrate 25 mg Tablet 25 mg PO BID 30 Days Qty: 60 RF: 0 lisinopril 5 mg tablet 5 mg PO DAILY 30 Days Qty: 30 RF: 0 nitroglycerin [Nitrostat] 0.4 mg Tablet, Sublingual 0.4 mg sublingual Q5M PRN (Reason: chest pain) 30 Days Qty: 30 RF: 0 Discontinued lisinopril 10 mg Tablet 10 mg PO QAM RF: 0 Discharge Orders: Discharge Order (Routine); Ordered 11/13/19 Ordered By: Nishant Corona/Other Patient Handouts: Heart Attack Dc Admission Data Admit Date/Time: 11/12/19 15:12 Attending Provider: Andrew Sommer Admit Provider: Eliseo Zapata Primary Care Provider: Osmany Rader Other Providers: lEiseo Zapata ; Nishant Malin
--- NOTE | 2019-11-13 10:51 | Cardiology Progress Note ---
Date of Service November 13, 2019 Assessment & Plan (1) ACS (acute coronary syndrome): 54-year-old presented with abrupt onset chest discomfort with transient ST segment changes on EKG and elevated troponin initially taken to the lab and found to have an occluded right coronary artery with successful prompt reperfusion. Patient feeling well this morning troponins are elevated reflecting reperfusion. No further chest pains or discomfort EKG pending Patient on appropriate medical therapies including beta-steve, HIPOLITO inhibitor, high-dose statin, dual antiplatelet therapy Will need prescription for sublingual nitro We will arrangement for follow-up in the next weeks time, cardiac rehab (2) Elevated troponin: (3) Hypertensive urgency: (4) Dyslipidemia: Admission and Anticipated Discharge Date Admission Date: November 12, 2019 Subjective Patient seen and examined, chart, medications, telemetry reviewed. Overall feeling well this morning ambulatory in room. Notes occasional heart flutter no chest pain or discomfort no dizziness or lightheadedness. No arrhythmias on telemetry Right radial access site healing well Physical Exam Constitutional: WD/WN, vitals as above + obese Eyes: PERRL, conjunctivae normal, anicteric sclerae ENMT: external ear and nose normal, oropharynx normal Neck: trachea midline, no thyromegaly Respiratory: normal respiratory effort, lungs clear to auscultation Cardiovascular: Rate/Rhythm: regular rate and regular rhythm Heart Sounds: normal S1 and normal S2; no gallop and no murmur Palpation: normal PMI Vessels: normal carotid upstroke and radial pulses present; no JVD and no carotid bruit Extremities: no edema Gastrointestinal (Abdomen): normal bowel sounds, soft, nontender, no hepatosplenomegaly Musculoskeletal: no cyanosis or clubbing, extremities motor strength 5/5 Skin: no rashes, warm and dry Neurologic: PERRL, EOMI, accommodation nl, no face palsy, no dysarthria Psychiatric: A+Ox3, euthymic affect Results & Data ([facility]) Vital Signs (Past 12 Hours) Vital Signs Temp Pulse Pulse Resp BP Pulse Ox 11/13/19 07:44 36.7 C 71 18 130/88 95 11/13/19 03:35 36.6 C 65 18 124/78 95 11/13/19 00:00 64 11/12/19 23:29 36.8 C 63 18 134/81 95 Laboratory Results Laboratory Results - last 24 hr 11/12/19 11/12/19 11/12/19 13:00 13:00 13:00 WBC 9.15 RBC 5.57 Hgb 17.0 Hct 47.8 MCV 85.8 MCH 30.5 MCHC 35.6 RDW Std Deviation 41.2 RDW Coeff of Terrell 13.0 Plt Count 284 MPV 10.8 H Immature Gran % (Auto) 0.3 Neut % (Auto) 76.5 Lymph % (Auto) 18.7 [place] % (Auto) 3.8 Eos % (Auto) 0.4 Baso % (Auto) 0.3 Neut # (Auto) 6.99 H Lymph # (Auto) 1.71 [place] # (Auto) 0.35 Eos # (Auto) 0.04 Baso # (Auto) 0.03 Immature Gran # (Auto) 0.03 H PT 9.5 INR 0.9 APTT 28.5 PTT Ratio 1.0 Activ Coag Time Kaolin Sodium 138 Potassium 3.7 Chloride 109 H Carbon Dioxide 21 Anion Gap 8.0 BUN 13 Creatinine 1.05 Est Cr Clr Drug Dosing 106.8 Est GFR ( Amer) 94.1 Est GFR (Non-Af Amer) 81.2 BUN/Creatinine Ratio 12.8 Glucose 110 H Estimat Average Glucose Hemoglobin A1c Calcium 9.4 Total Bilirubin 0.4 AST 19 ALT 49 Alkaline Phosphatase 90 Troponin I 0.216 H* Total Protein 8.1 Albumin 3.8 Globulin 4.3 H Albumin/Globulin Ratio 0.9 Triglycerides Cholesterol LDL Cholesterol, Calc VLDL Cholesterol, Calc HDL Cholesterol Cholesterol/HDL Ratio Lipase 157 11/12/19 11/12/19 11/13/19 15:02 21:11 03:30 WBC 8.74 RBC 5.35 Hgb 15.9 Hct 46.5 MCV 86.9 MCH 29.7 MCHC 34.2 RDW Std Deviation 42.4 RDW Coeff of Terrell 13.4 Plt Count 258 MPV 10.6 H Immature Gran % (Auto) 0.2 Neut % (Auto) 64.0 Lymph % (Auto) 27.6 [place] % (Auto) 6.5 Eos % (Auto) 1.5 Baso % (Auto) 0.2 Neut # (Auto) 5.59 Lymph # (Auto) 2.41 [place] # (Auto) 0.57 Eos # (Auto) 0.13 Baso # (Auto) 0.02 Immature Gran # (Auto) 0.02 PT INR APTT PTT Ratio Activ Coag Time Kaolin 224 H Sodium Potassium Chloride Carbon Dioxide Anion Gap BUN Creatinine Est Cr Clr Drug Dosing Est GFR ( Amer) Est GFR (Non-Af Amer) BUN/Creatinine Ratio Glucose Estimat Average Glucose Hemoglobin A1c Calcium Total Bilirubin AST ALT Alkaline Phosphatase Troponin I 35.000 H* Total Protein Albumin Globulin Albumin/Globulin Ratio Triglycerides Cholesterol LDL Cholesterol, Calc VLDL Cholesterol, Calc HDL Cholesterol Cholesterol/HDL Ratio Lipase 11/13/19 11/13/19 03:30 03:30 WBC RBC Hgb Hct MCV MCH MCHC RDW Std Deviation RDW Coeff of Terrell Plt Count MPV Immature Gran % (Auto) Neut % (Auto) Lymph % (Auto) [place] % (Auto) Eos % (Auto) Baso % (Auto) Neut # (Auto) Lymph # (Auto) [place] # (Auto) Eos # (Auto) Baso # (Auto) Immature Gran # (Auto) PT INR APTT PTT Ratio Activ Coag Time Kaolin Sodium 140 Potassium 3.9 Chloride 111 H Carbon Dioxide 23 Anion Gap 6.0 BUN 12 Creatinine 1.04 Est Cr Clr Drug Dosing 108.4 Est GFR ( Amer) 95.2 Est GFR (Non-Af Amer) 82.2 BUN/Creatinine Ratio 11.3 Glucose 116 H Estimat Average Glucose 114 Hemoglobin A1c 5.6 Calcium 8.5 Total Bilirubin AST ALT Alkaline Phosphatase Troponin I 46.800 H* Total Protein Albumin Globulin Albumin/Globulin Ratio Triglycerides 575 H Cholesterol 233 H LDL Cholesterol, Calc VLDL Cholesterol, Calc HDL Cholesterol 28 Cholesterol/HDL Ratio 8 Lipase
[2019-11-13] MEDS ORDERED: TICAGRELOR 90 MG Homepack PO STA (12:59)
--- NOTE | 2019-11-14 05:24 | Electrocardiogram Report ---
Test Reason : Blood Pressure : / mmHG Vent. Rate : 071 BPM Atrial Rate : 071 BPM P-R Int : 132 ms QRS Dur : 082 ms QT Int : 398 ms P-R-T Axes : 030 057 066 degrees QTc Int : 432 ms Normal sinus rhythm Nonspecific ST abnormality Abnormal ECG When compared with ECG of 12-NOV-2019 13:42, No significant change was found Confirmed by Brandt Hdez ([id number]) on 11/14/2019 5:23:49 AM Referred By: Osmany Rader Confirmed By:Brandt Hdez
--- NOTE | 2019-11-14 05:41 | Electrocardiogram Report ---
Test Reason : Blood Pressure : / mmHG Vent. Rate : 068 BPM Atrial Rate : 068 BPM P-R Int : 152 ms QRS Dur : 082 ms QT Int : 414 ms P-R-T Axes : 043 056 041 degrees QTc Int : 440 ms Normal sinus rhythm Nonspecific ST abnormality When compared with ECG of 13-NOV-2019 06:31, No significant change was found Confirmed by Brandt Hdez ([id number]) on 11/14/2019 5:41:10 AM Referred By: Osmany Rader Confirmed By:Brandt Hdez
== END 2019-11-13 13:40 | disposition home or self-care (01) | DRG 247 ==
LOC: ED 12:50 → CC 14:20 → 2S 15:12

== ENCOUNTER 2019-12-30 16:57 | Inpatient (IN) ==
[~2019-12-30 16:57] MED LIST: PIPERACILLIN/TAZOBACTAM 3.375 GM in DEXTROSE 5% 100 ML IV SCH
[2019-12-30] MEDS ORDERED: fentaNYL citrate 100 MCG/2 ML VIAL IV STA (17:15)
[2019-12-30] MEDS ORDERED: ONDANSETRON INJ 2 MG/ML 2 ML VIAL IV STA (17:15)
--- NOTE | 2019-12-30 17:30 | XRay Report ---
SINGLE VIEW CHEST CLINICAL HISTORY: Atypical chest pain. FINDINGS: An AP, portable, upright chest radiograph is compared to study dated 11/12/2019. The cardiom ediastinal silhouette is unremarkable. There is chronic elevation of left hemidiaphragm. The lungs an d pleural spaces are clear. No pneumothorax is seen. The bony thorax is grossly intact. IMPRESSION: No active disease in the chest. ACT 112: Negative or not required by law. Electronically signed by: Sonu Taylor M.D. 12/30/2019 5:28 PM
--- NOTE | 2019-12-30 17:35 | Emergency Department Note ---
History of Present Illness General Chief complaint: Chest Pain Stated complaint: CHEST PAIN, HEART CATH IN October, Time Seen by Provider: 12/30/19 17:13 Source: patient History of Present Illness Provider complaint: Chest pain Onset (ago): hour(s) Location: chest and left Radiation: other (Right chest) Severity: mild Maximum Pain Intensity: 3 Quality: + dull Exacerbated By: + other (Nitroglycerin) Associated symptoms: no chest pain, no cough, no diaphoresis, no fever/chills, no nausea/vomiting and no shortness of breath This is a 54-year-old male with a history of an NSTEMI presenting with chest pain starting several hours ago. He states the pain is dull and it started on the left lower chest and subsequently radiated to the right lower chest. He states it feels somewhat similar to when he had his NSTEMI but not nearly as intense. He did take a sublingual nitroglycerin which he states seemed to make his pain worse. He denies abdominal pain, vomiting, urinary symptoms, fever, shortness of breath, diaphoresis, cough or cold symptoms or known exposure to COVID-19. He has had no leg swelling or pain. He does complain of some mild intermittent diarrhea which she gets with his normal medications. Home Medications Home Medications Medication Instructions Recorded Confirmed Type aspirin 81 mg PO QAM 12/30/19 12/30/19 History atorvastatin 80 mg PO QAM 12/30/19 12/30/19 History lisinopril 10 mg PO QAM 12/30/19 12/30/19 History metoprolol tartrate 25 mg PO BID 12/30/19 12/30/19 History nitroglycerin [Nitrostat] See Rx Instructions .ROUTE 12/30/19 12/30/19 History .COMPLEX PRN ticagrelor [Brilinta] 90 mg PO BID 12/30/19 12/30/19 History Allergies Allergy/AdvReac Type Severity Reaction Status Date / Time No Known Allergies Allergy Verified 12/30/19 18:54 Past Med/Surg History Medical History HTN (hypertension) Hypertensive urgency NSTEMI (non-ST elevated myocardial infarction) ROXANA x's 1 RCA Unstable angina pectoris Surgical History History of colonoscopy Family History Father Heart disease Colorectal cancer Mother Rheumatoid arthritis Social History Smoking Status: Never smoker Hx Alcohol Use: Yes Alcohol type: beer and wine Alcohol Intake Frequency: Monthly or Less Hx Substance Use: No Preferred Language: Venezuelan Communication Ability: Effective Welfare Adviser Required: No Beliefs That Will Affect Care: None Current Living Situation: Spouse 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 and A total of 10 systems reviewed and were otherwise negative Physical Exam Vital Signs Vital Signs - 24 hr 12/30/19 17:03 12/30/19 17:13 12/30/19 17:28 Temperature 37.2 C Temperature Source Oral Pulse Rate 68 Pulse Rate [Apical] 62 Pulse Rate from SpO2 Sensor Pulse Rhythm Regular Pulse Rhythm [Apical] Pulse Strength Normal Respiratory Rate 18 17 Respiratory Effort / Characteristics Non-Labored Spontaneous Non-Labored Spontaneous Respiratory Depth Normal Normal Respiratory Pattern Regular Regular Blood Pressure 167/91 H Blood Pressure [Right Arm] 149/87 H Blood Pressure Mean 116 Blood Pressure Mean [Right Arm] 107 Blood Pressure Position Sitting Pulse Oximetry 99 99 Oxygen Delivery Method Room Air Room Air Room Air Sepsis Recent Fever Within 48 Hours No Sepsis New/Unexplained Change in Mental Status N/A Sepsis Action Taken by Nursing No Action Required 12/30/19 17:58 12/30/19 18:36 12/30/19 19:00 Temperature Temperature Source Pulse Rate 60 Pulse Rate [Apical] 65 63 Pulse Rate from SpO2 Sensor 60 Pulse Rhythm Pulse Rhythm [Apical] Regular Pulse Strength Respiratory Rate 18 18 15 Respiratory Effort / Characteristics Non-Labored Respiratory Depth Normal Respiratory Pattern Blood Pressure 150/85 H Blood Pressure [Right Arm] 134/86 137/81 Blood Pressure Mean 113 Blood Pressure Mean [Right Arm] 102 99 Blood Pressure Position Pulse Oximetry 98 97 97 Oxygen Delivery Method Room Air Room Air Sepsis Recent Fever Within 48 Hours Sepsis New/Unexplained Change in Mental Status Sepsis Action Taken by Nursing 12/30/19 19:30 12/30/19 20:00 12/30/19 20:30 Temperature Temperature Source Pulse Rate 64 63 65 Pulse Rate [Apical] Pulse Rate from SpO2 Sensor 65 65 70 Pulse Rhythm Pulse Rhythm [Apical] Pulse Strength Respiratory Rate 15 13 22 Respiratory Effort / Characteristics Respiratory Depth Respiratory Pattern Blood Pressure 159/99 H 158/95 H 161/98 H Blood Pressure [Right Arm] Blood Pressure Mean 117 117 115 Blood Pressure Mean [Right Arm] Blood Pressure Position Pulse Oximetry 98 99 99 Oxygen Delivery Method Sepsis Recent Fever Within 48 Hours Sepsis New/Unexplained Change in Mental Status Sepsis Action Taken by Nursing Constitutional: Vital signs reviewed. Eyes: Pupils are equal round reactive to light. Conjunctiva are noninjected. ENT: Pharynx is clear without erythema or exudate. Mucous membranes are moist. Neck supple without meningeal signs. Respiratory: Clear to auscultation bilaterally. Breath sounds are equal bilaterally. Cardiovascular: Regular rate and rhythm. No rubs or gallops. GI: Soft, nondistended with mild epigastric and right upper quadrant tenderness. No Blood sign. Bowel sounds are present. Musculoskeletal: No peripheral edema. No lower extremity tenderness. Integumentary: No cyanosis. or jaundice. Neurological: The patient is awake and alert. No focal deficits. Psychiatric: Normal affect. Not anxious appearing. Course Administered Medications Discontinued Medications Fentanyl Citrate (Fentanyl Citrate 100 Mcg/2 Ml Vial) 50 mcg IV NOW STA Stop: 12/30/19 17:16 Last Admin: 12/30/19 17:58 Dose: 50 mcg Documented by: [id number] Morphine Sulfate (Morphine Sulfate 2 Mg/Ml Carp) 2 mg IV NOW STA Stop: 12/30/19 18:50 Last Admin: 12/30/19 20:29 Dose: 2 mg Documented by: [id number] Ondansetron HCl (Ondansetron Inj 2 Mg/Ml 2 Ml Vial) 4 mg IV NOW STA Stop: 12/30/19 17:16 Last Admin: 12/30/19 18:03 Dose: 4 mg Documented by: [id number] Medical Decision Making Differential Diagnosis Unstable angina, VT, cholelithiasis, cholecystitis, GERD, pleurisy Medical Records Attestation: I reviewed the patient's medical records. The patient was admitted to the hospital in October of this year for chest pain. He had an non-STEMI and had a cardiac catheterization which showed 100% occl usion of his RCA. A drug-eluting stent was placed successfully. Home Medications Current Medication List: was personally reviewed by me Laboratory Data Attestation: I reviewed the patient's lab results. Result diagrams: 12/30/19 17:36 12/30/19 17:36 Lab Results 12/30/19 12/30/19 12/30/19 Range/Units 17:36 17:36 17:36 WBC 7.50 (4.8-10.8) K/uL RBC 4.92 (4.7-6.1) M/uL Hgb 14.8 (14.0-18.0) g/dL Hct 43.5 (42-52) % MCV 88.4 (80-100) fL MCH 30.1 (25-34) pg MCHC 34.0 (32-36) g/dL RDW Std Deviation 44.6 (36.4-46.3) fL RDW Coeff of Terrell 13.8 (11.5-14.5) % Plt Count 226 (130-400) K/uL MPV 12.0 H (7.4-10.4) fL Immature Gran % (Auto) 0.1 % Neut % (Auto) 69.4 % Lymph % (Auto) 20.5 % [place] % (Auto) 6.0 % Eos % (Auto) 3.7 % Baso % (Auto) 0.3 % Neut # (Auto) 5.20 (1.4-6.5) K/uL Lymph # (Auto) 1.54 (1.2-3.4) K/uL [place] # (Auto) 0.45 (0.11-0.59) K/uL Eos # (Auto) 0.28 (0-0.5) K/uL Baso # (Auto) 0.02 (0-0.2) K/uL Immature Gran # (Auto) 0.01 (0.00-0.02) K/uL PT 10.6 (9.0-12.0) Seconds INR 1.0 (0.9-1.1) APTT 28.2 (21.0-31.0) Seconds PTT Ratio 1.0 Sodium 141 (136-145) mmol/L Potassium 3.6 (3.5-5.1) mmol/L Chloride 108 H (98-107) mmol/L Carbon Dioxide 27 (21-32) mmol/L Anion Gap 6.0 (3-11) BUN 12 (7-18) mg/dl Creatinine 1.00 (0.6-1.4) mg/dl Est Cr Clr Drug Dosing 106.1 ml/min Est GFR ( Amer) 99.8 Est GFR (Non-Af Amer) 86.2 BUN/Creatinine Ratio 11.6 (10-20) Glucose 96 (70-99) mg/dl Calcium 9.1 (8.5-10.1) mg/dl Total Bilirubin 1.1 H (0.2-1) mg/dl AST 145 H (15-37) U/L ALT 140 H (12-78) U/L Alkaline Phosphatase 131 H (45-117) U/L Troponin I < 0.015 (0-0.045) ng/ml Total Protein 7.3 (6.4-8.2) gm/dl Albumin 3.7 (3.4-5.0) gm/dl Globulin 3.6 (2.5-4.0) gm/dl Albumin/Globulin Ratio 1.0 (0.9-2) Lipase 176 (73-393) U/L Imaging Data Radiologist's Impression: SINGLE VIEW CHEST CLINICAL HISTORY: Atypical chest pain. FINDINGS: An AP, portable, upright chest radiograph is compared to study dated 11/12/2019. The cardiomediastinal silhouette is unremarkable. There is chronic elevation of left hemidiaphragm. The lungs and pleural spaces are clear. No pneumothorax is seen. The bony thorax is grossly intact. IMPRESSION: No active disease in the chest. ACT 112: Negative or not required by law. Electronically signed by: Sonu Taylor M.D. 12/30/2019 5:28 PM ULTRASOUND RIGHT UPPER QUADRANT ABDOMEN CLINICAL HISTORY: Epigastric abdominal pain. COMPARISON STUDY: No priors. TECHNIQUE: Real-time, grayscale, and color flow sonography of the right upper quadrant of the abdomen was performed. Images are reviewed in the transverse and longitudinal planes. FINDINGS: Liver: The liver is normal in size and echotexture. There is no intrahepatic biliary ductal dilatation. The main portal vein is patent. Gallbladder: There are numerous shadowing calcified gallstones. There is no gallbladder wall thickening or pericholecystic fluid. A sonographic Blood's sign could not be assessed as the patient received analgesia. The common bile duct measures up to 0.4 cm in diameter. Pancreas: Not visualized due to overlying bowel gas. Right kidney: Survey images of the right kidney demonstrate normal size and echotexture. There is no hydronephrosis. Ascites: None. IMPRESSION: Cholelithiasis without sonographic evidence of acute cholecystitis. ACT 112: Negative or not required by law. Electronically signed by: Sonu Taylor M.D. 12/30/2019 6:31 PM ECG Data Rate (beats per minute): 62 Rhythm: + normal sinus ECG [place]: + Normal ECG ST segments: + T-wave inversions (Inferior); no ST elevation ECG Findings: no PVCs Comparison ECG Date: from (November 13, 2019) Change: the following changes noted (T wave inversions are new) MDM Narrative I did evaluate the patient as noted above. Patient is presenting with lower chest discomfort starting several hours ago. On exam he has some mild tenderness in the epigastric and right upper quadrant. He did take 2 nitro which did not help his symptoms. IV access was established. I did treat him with fentanyl and Zofran IV. I did place an order for continuous cardiac monitoring. The monitor showed normal sinus rhythm at a rate of 62 bpm. I did order and personally review the patient's 12-lead EKG as described above. He has some T wave inversions in the inferior leads. I did order and personally reviewed the images of the patient's chest x-ray as described above. There is no evidence of acute cardiopulmonary process. I did order a urine analysis. I did order and review the patient's blood work as noted in the electronic medical record. CBC is unremarkable without leukocytosis or anemia. Electrolytes are unremarkable. LFTs show slightly elevated total bilirubin of 1.1. AST is 145, ALT is 140 and alk phos is 131. Troponin is negative. Lipase is within normal limits. I did order an ultrasound of the right upper quadrant. I did review the images myself as well as the radiology report as described above. He does have cholelithiasis without signs of acute cholecystitis or CBD dilation. I did discuss the test results with the patient. He is still having pain so I did give him morphine IV. I did recommend hospitalization for further care and evaluation. I did discuss the case with the hospitalist and major case detective. Impression & Plan Cholelithiasis, Abnormal ECG Discharge Plan Visit Data Chief Complaint: Chest Pain Stated Complaint: CHEST PAIN, HEART CATH IN AUGUST, DISCOMFORT ED Provider: Segundo Johnson Discharge Problem: Cholelithiasis, Abnormal ECG Patient Disposition: Admitted As Inpatient Discharge Instructions Interventions: ED Discharge Assessment Last Done: 12/30/19 21:49
[2019-12-30 17:44] LABS: Basophils # (auto) 0.02 K/uL (0-0.2); Basophils % (auto) 0.3 %; Eosinophils # (auto) 0.28 K/uL (0-0.5); Eosinophils % (auto) 3.7 %; Hematocrit (blood only) 43.5 % (42-52); Hemoglobin 14.8 g/dL (14.0-18.0); Immature Granulocytes # (auto) 0.01 K/uL (0.00-0.02); Immature Granulocytes % (auto) 0.1 %; Lymphocytes # (auto) 1.54 K/uL (1.2-3.4); Lymphocytes % (auto) 20.5 %; Mean Corpuscular Hemoglobin 30.1 pg (25-34); Mean Corpuscular Volume 88.4 fL (80-100); Monocytes # (auto) 0.45 K/uL (0.11-0.59); Neutrophils % (auto) 69.4 %; Platelet Count 226 K/uL (130-400); RDW Coefficient of Variation 13.8 % (11.5-14.5); RDW Standard Deviation 44.6 fL (36.4-46.3); Red Blood Count 4.92 M/uL (4.7-6.1)
[2019-12-30 17:55] LABS: Partial Thromboplastin Time 28.2 Seconds (21.0-31.0); Prothrombin Time 10.6 Seconds (9.0-12.0)
[2019-12-30 18:02] LABS: Alanine Aminotransferase 140 U/L (12-78); Albumin Level 3.7 gm/dl (3.4-5.0); Aspartate Aminotransferase 145 U/L (15-37); BUN Creatinine Ratio 11.6 (10-20); Blood Urea Nitrogen 12 mg/dl (7-18); Calcium 9.1 mg/dl (8.5-10.1); Carbon Dioxide 27 mmol/L (21-32); Chloride 108 mmol/L (98-107); Creatinine Clr Calc Pharmacy 106.1 ml/min; Est GFR (African American) 99.8; Est GFR (Non-African American) 86.2; Glucose 96 mg/dl (70-99); Lipase 176 U/L (73-393); Potassium 3.6 mmol/L (3.5-5.1); Sodium 141 mmol/L (136-145)
[2019-12-30 18:07] LABS: Alkaline Phosphatase 131 U/L (45-117); Bilirubin,Total 1.1 mg/dl (0.2-1); Globulin 3.6 gm/dl (2.5-4.0); Total Protein 7.3 gm/dl (6.4-8.2); Troponin I < 0.015 ng/ml (0-0.045)
--- NOTE | 2019-12-30 18:33 | Ultrasound Report ---
ULTRASOUND RIGHT UPPER QUADRANT ABDOMEN CLINICAL HISTORY: Epigastric abdominal pain. COMPARISON STUDY: No priors. TECHNIQUE: Real-time, grayscale, and color flow sonography of the right upper quadrant of the abdomen was performed. Images are reviewed in the transverse and longitudinal planes. FINDINGS: Liver: The liver is normal in size and echotexture. There is no intrahepatic biliary ductal dilatatio n. The main portal vein is patent. Gallbladder: There are numerous shadowing calcified gallstones. There is no gallbladder wall thickeni ng or pericholecystic fluid. A sonographic Blood's sign could not be assessed as the patient receive d analgesia. The common bile duct measures up to 0.4 cm in diameter. Pancreas: Not visualized due to overlying bowel gas. Right kidney: Survey images of the right kidney demonstrate normal size and echotexture. There is no hydronephrosis. Ascites: None. IMPRESSION: Cholelithiasis without sonographic evidence of acute cholecystitis. ACT 112: Negative or not required by law. Electronically signed by: Sonu Taylor M.D. 12/30/2019 6:31 PM
[2019-12-30] MEDS ORDERED: MoRPHine SULFATE 2 MG/ML CARP IV STA (18:49)
[2019-12-30] MEDS ORDERED: NITROGLYCERIN SL 0.4 MG/TAB TAB SL PRN (22:30)
[2019-12-30] MEDS ORDERED: ACETAMINOPHEN 325 MG TAB PO PRN (22:30)
[2019-12-30] MEDS ORDERED: NITROGLYCERIN SL 0.4 MG/TAB TAB PRN (22:30)
[2019-12-30] MEDS ORDERED: ONDANSETRON INJ 2 MG/ML 2 ML VIAL IV PRN (22:30)
[2019-12-30] MEDS ORDERED: PIPERACILL/TAZOBAC CONSULT ACTIVE PRN (22:30)
[2019-12-30] MEDS ORDERED: MoRPHine SULFATE 4 MG/ML 1 ML CARP\\VIAL IV PRN (22:30)
[2019-12-30] MEDS ORDERED: PIPERACILLIN/TAZOBACTAM 3.375 GM in DEXTROSE 5% 100 ML IV ONE (22:45)
--- NOTE | 2019-12-30 23:08 | History and Physical Report ---
DATE OF ADMISSION: 12/30/2019 CHIEF COMPLAINT: Abdominal pain radiating to the chest. HISTORY OF PRESENT ILLNESS: A 54-year-old male with past medical history significant for hypertension, hyperlipidemia, diverticulosis, history of recent non-ST elevated DC, status post stent to RCA on 11/12/2019. The patient comes with upper abdomen and lower chest pain starting today afternoon about 5/10 to 6/10 in severity. Pain is more in the upper abdomen, band-like and radiating to the left of the chest. It is a constant pain. No nausea, no shortness of breath, no sweating. No fever, no chills, no cough. Normal bowel and bladder movements. No rash. Otherwise, he climbed steps today without any chest pain. No cough. Appetite is okay. Swallows ok, no dysphagia. No earache, no runny nose, no sore throat. Currently resting comfortably and hemodynamically stable. Blood pressure somewhat on the higher side. No leukocytosis seen. LFTs are slightly elevated and gallbladder ultrasound shows cholelithiasis without sonographic evidence of acute cholecystitis. EKG shows some T-wave inversions in inferior leads. ALLERGIES: No known drug allergies. PAST MEDICAL HISTORY: As mentioned above. PAST SURGICAL HISTORY: Colonoscopy. MEDICATIONS: The patient is on aspirin 81 mg p.o. daily, atorvastatin 80 mg p.o. a.m., lisinopril 10 mg p.o. a.m., metoprolol tartrate 25 mg p.o. b.i.d., nitroglycerin 0.4 mg sublingual p.r.n., Brilinta 90 mg p.o. b.i.d. FAMILY HISTORY: Significant for father had colon cancer, CAD, abdominal aortic aneurysm; mother has rheumatoid arthritis, hypertension and hyperlipidemia, diabetes. SOCIAL HISTORY: . No smoking. Alcohol rarely. No drug use. REVIEW OF SYSTEMS: As per HPI. Rest of the review of systems negative. PHYSICAL EXAMINATION: GENERAL: The patient is of moderate build, not in acute distress. VITAL SIGNS: Temperature 37.2, pulse 65, respiratory rate 22, blood pressure 161/98, oxygen 99% on room air. HEENT: Pupils equal, round, and reactive to light. Oral mucosa moist. NECK: No JVD, no neck masses. CARDIOVASCULAR: S1, S2 heard, regular rate and rhythm, no murmur, no gallop. RESPIRATORY SYSTEM: Normal AP diameter. No accessory muscle use. No wheezing, no crackles. ABDOMEN: Soft, bowel sounds present. Right upper quadrant tenderness present. No guarding, no rigidity, no distention. CENTRAL NERVOUS SYSTEM: Cranial nerves II-XII grossly intact, nonfocal. EXTREMITIES: No edema, no erythema. LABORATORY DATA: WBC 7.5, hemoglobin 14.8, hematocrit 43.5, platelets 226. PT 10.6, INR 1, APTT 28.2. Sodium 141, potassium 3.6, chloride 108, bicarbonate 27, BUN 12, creatinine 1, serum glucose 96, calcium 9.1, total bilirubin 1.1, AST 145, ALT 140, alkaline phosphatase 131. Troponin I less than 0.015. Lipase 176. IMAGING DATA: Chest x-ray, no active disease in the chest. Gallbladder ultrasound, cholelithiasis without sonographic evidence of acute cholecystitis. Common bile duct measures 0.4 cm. EKG: Normal sinus rhythm at a rate of 62, some T-wave inversions in inferior leads. ASSESSMENT AND PLAN: This 54-year-old male presents with abdominal pain radiating to the chest. 1. Abdominal pain in the upper abdomen and lower chest, radiating to the left side of chest. He recently had a non-ST elevation myocardial infarction with a stent to the right coronary artery. His troponin is negative. He has some EKG changes with T-wave inversions in inferior leads. We will admit to tele floor. Gallbladder ultrasound showed gallstones and he also had some right upper quadrant abdominal tenderness, could be biliary colic versus cholecystitis. We will rule out acute coronary syndrome because of recent history and ekg changes. We will follow serial enzymes, echocardiogram. We will keep him n.p.o. and get an echocardiogram. Consult cardiology in the a.m. We will also empirically start him on IV Zosyn. Repeat LFTs in a.m. and consult surgery and gastro in a.m. ERCP /MRCP as per GI. 2. History of coronary artery disease, recently in October he had RCA stent. Continue his home medication of aspirin, statin, Brilinta, lisinopril, metoprolol. 3. Hyperlipidemia. Continue statin. 4. Hypertension. Continue lisinopril, metoprolol. Will monitor the blood pressure. Nitro past added as BP was high but as BP has improved will d/c nitro paste and monitor. 5. Deep venous thrombosis prophylaxis, sequential compression devices. DISPOSITION: Closely monitor in tele floor. Level 1 full code. Expect to discharge home and follow with family doctor. MTDD
[2019-12-30] MEDS: POTASSIUM CHLORIDE 10 MEQ in D5W AND NSS 1,000 ML IV SCH (23:37)
[2019-12-30] MEDS: METOPROLOL TARTRATE 25 MG TAB PO SCH (23:37)
[2019-12-30] MEDS: TICAGRELOR 90 MG TAB PO SCH (23:37)
[2019-12-30] MEDS: NITROGLYCERIN 2% OINTMENT 30GM TUBE EXT SCH (23:41)
[2019-12-31] MEDS: PIPERACILLIN/TAZOBACTAM 3.375 GM in DEXTROSE 5% 100 ML IV SCH ×3 (05:18→20:57)
[2019-12-31] MEDS: NITROGLYCERIN 2% OINTMENT 30GM TUBE EXT SCH (05:18)
[2019-12-31 05:41] LABS: Basophils # (auto) 0.04 K/uL (0-0.2); Basophils % (auto) 0.9 %; Eosinophils # (auto) 0.24 K/uL (0-0.5); Eosinophils % (auto) 5.4 %; Hematocrit (blood only) 41.1 % (42-52); Hemoglobin 13.5 g/dL (14.0-18.0); Immature Granulocytes # (auto) 0.01 K/uL (0.00-0.02); Immature Granulocytes % (auto) 0.2 %; Lymphocytes # (auto) 1.05 K/uL (1.2-3.4); Lymphocytes % (auto) 23.6 %; Mean Corpuscular Hemoglobin 29.2 pg (25-34); Mean Corpuscular Hgb Conc 32.8 g/dL (32-36); Mean Platelet Volume 11.7 fL (7.4-10.4); Monocytes # (auto) 0.29 K/uL (0.11-0.59); Monocytes % (auto) 6.5 %; Neutrophils # (auto) 2.81 K/uL (1.4-6.5); Neutrophils % (auto) 63.4 %; Platelet Count 200 K/uL (130-400); RDW Coefficient of Variation 13.8 % (11.5-14.5); RDW Standard Deviation 44.9 fL (36.4-46.3); Red Blood Count 4.62 M/uL (4.7-6.1); White Blood Count 4.44 K/uL (4.8-10.8)
[2019-12-31 06:11] LABS: Alanine Aminotransferase 982 U/L (12-78); Albumin Level 2.9 gm/dl (3.4-5.0); Aspartate Aminotransferase 737 U/L (15-37); BUN Creatinine Ratio 8.1 (10-20); Blood Urea Nitrogen 8 mg/dl (7-18); Calcium 8.1 mg/dl (8.5-10.1); Carbon Dioxide 27 mmol/L (21-32); Chloride 110 mmol/L (98-107); Creatinine Clr Calc Pharmacy 105.8 ml/min; Est GFR (African American) 99.8; Est GFR (Non-African American) 86.2; Glucose 143 mg/dl (70-99); Magnesium 1.9 mg/dl (1.8-2.4); Potassium 3.6 mmol/L (3.5-5.1); Sodium 141 mmol/L (136-145)
[2019-12-31 06:23] LABS: Alkaline Phosphatase 172 U/L (45-117); Bilirubin,Total 1.5 mg/dl (0.2-1); Troponin I < 0.015 ng/ml (0-0.045)
[2019-12-31] MEDS: POTASSIUM CHLORIDE 10 MEQ in D5W AND NSS 1,000 ML IV SCH ×2 (07:44→16:02)
[2019-12-31] MEDS: ATORVASTATIN 40 MG TAB PO SCH (07:49)
[2019-12-31] MEDS: lisinopriL 10 MG TAB PO SCH (07:49)
[2019-12-31] MEDS: ASPIRIN 81 MG ECTAB PO SCH (07:49)
[2019-12-31] MEDS: TICAGRELOR 90 MG TAB PO SCH ×2 (07:50→21:41)
[2019-12-31] MEDS: METOPROLOL TARTRATE 25 MG TAB PO SCH ×2 (07:50→21:41)
--- NOTE | 2019-12-31 08:30 | Surgery Consultation ---
Date of Consultation December 31, 2019 Assessment & Plan (1) Cholelithiasis: rising LFTs this AM GI & cardiology eval no evidence of acute cholecystitis, if he has choledocholithiasis he should have eventual lap hermilo but will need to discuss timing with cardiology Supervising Physician Co-Signing Physician Notes Patient seen and examined, labs and imaging reviewed, agree with above. 54-year-old male with recent coronary stent secondary to an STEMI back in October currently on Brilinta presented with postprandial abdominal pain. Ultrasound in the emergency room showed cholelithiasis without cholecystitis and 4 mm common bile duct. LFTs were mildly elevated. He was admitted for observation and this morning his liver enzymes have increased. His total bilirubin is 1.5 mostly direct, and his LFTs are significantly elevated. He denies any current abdominal pain. He has not had episodes like this before. GI and cardiology have both been consulted as well. On exam he is afebrile with stable vitals. His abdominal exam is benign without tenderness. LFTs as above. This likely represents choledocholithiasis, appreciate GI consultation. Patient will benefit from ERCP/MRCP per GIs preference. If he does undergo ERCP, we would hold off on cholecystectomy until he can come off his Brilinta which will likely be 90 days from his stent placement. Await recommendations from GI and cardiology. Surgery will follow. History of Present Illness Attending Physician: Diego Coulter MD History of Present Illness 54 y/o male with pain across the upper abdomen yesterday 1-2 hours after eating lunch. He had cardiac stenting in October, he took a nitro with no change in his pain and came to ED. Admitted overnight for LFT elevations. No previous abdominal pain, surgery, N/V, or food intolerance. Had some reflux back in the . Allergies Allergy/AdvReac Type Severity Reaction Status Date / Time No Known Allergies Allergy Verified 12/30/19 18:54 Home Medications Home Medications Medication Instructions Recorded Confirmed Type aspirin 81 mg PO QAM 12/30/19 12/30/19 History atorvastatin 80 mg PO QAM 12/30/19 12/30/19 History lisinopril 10 mg PO QAM 12/30/19 12/30/19 History metoprolol tartrate 25 mg PO BID 12/30/19 12/30/19 History nitroglycerin [Nitrostat] See Rx Instructions .ROUTE 12/30/19 12/30/19 History .COMPLEX PRN ticagrelor [Brilinta] 90 mg PO BID 12/30/19 12/30/19 History Patient History Medical History HTN (hypertension) Hypertensive urgency NSTEMI (non-ST elevated myocardial infarction) ROXANA x's 1 RCA Unstable angina pectoris Surgical History History of colonoscopy Family History Father Heart disease Colorectal cancer Mother Rheumatoid arthritis Social History Smoking Status: Never smoker Hx Alcohol Use: Yes Alcohol type: beer and wine Alcohol Intake Frequency: Freddie hly or Less Hx Substance Use: No Preferred Language: Icelandic Communication Ability: Effective Cable Testers Helper Required: No Beliefs That Will Affect Care: None Current Living Situation: Spouse 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 Feels Safe at Home: Yes Safety Concerns: Feels Safe At This Time Assistive Devices: Glasses Review of Systems Constitutional: no fever and no chills Gastrointestinal: + abdominal pain; no nausea, no vomiting and no change in bowel habits Physical Exam Constitutional: WD/WN, vitals as above Respiratory: normal respiratory effort, lungs clear to auscultation Cardiovascular: RRR, no murmur, no edema Gastrointestinal (Abdomen): Inspection/Auscultation: abdomen not distended Percussion/Palpation: abdomen soft; abdomen nontender Results & Data ([facility]) Vital Signs (Past 12 Hours) Vital Signs Temp Pulse Pulse Pulse Resp BP BP 12/31/19 07:48 36.8 C 61 18 114/63 12/31/19 04:00 36.6 C 60 16 102/58 L 12/30/19 23:08 37.1 C 62 18 122/74 12/30/19 22:31 37.1 C 82 16 154/82 H 12/30/19 21:30 60 13 133/79 12/30/19 21:00 69 24 142/89 H 12/30/19 20:30 65 22 161/98 H Pulse Ox 12/31/19 07:48 99 12/31/19 04:00 97 12/30/19 23:08 96 10/06/20 22:31 94 12/30/19 21:30 96 12/30/19 21:00 98 12/30/19 20:30 99 PG Care Time/CCT Total # of Minutes Spent Total Time Spent with Patient: Total time spent is greater than 50% in coordination of care (as documented) at patient's floor/unit and/or counseling patient: Coding Level of Care Code 25407 Inpt Consult Level 3 Diagnoses Cholelithiasis K80.71 Biliary obstruction: with biliary obstruction Cholecystitis presence: without cholecystitis Cholelithiasis location: gallbladder and bile duct (1) Cholelithiasis Biliary obstruction: with biliary obstruction Cholecystitis presence: without cholecystitis Cholelithiasis location: gallbladder and bile duct Qualified Code(s): K80.71 - Calculus of gallbladder and bile duct without cholecystitis with obstruction
--- NOTE | 2019-12-31 08:43 | Cardiology Consultation ---
Date of Consultation December 31, 2019 Assessment & Plan (1) Cholelithiasis: (2) Elevated LFTs: (3) Status post insertion of drug-eluting stent into right coronary artery for coronary artery disease: (4) HTN (hypertension): Patient presenting with epigastric pain/abdominal pain, with findings of elevated LFT's consistent with possible choledocholithiasis. Plan for possible MRCP per GI. Patient had NSTEMI in October, 7 weeks ago, receiving 1 ROXANA to the RCA on 11/12/19 in setting of acute occlusion. He remains on dual antiplatelet therapy with ASA and Brilinta and may not discontinue therapy at this time. His cardiac work up on arrival to ER has been unrevealing with negative cardiac enzymes. Initial mild T wave inversion in lead III, AVF, now resolved. BP improved. Echo results are pending. Case discussed with Dr. Lott. Acceptable to proceed with GI work up as planned, but must be performed on dual antiplatelet therapy. Will follow Supervising Physician Co-Signing Physician Notes I discussed the case with Ms. Ang, reviewed the medical record and examined the patient. I agree with the plan as outlined. I also reviewed the patient's echocardiogram which reveals normal left ventricular function and no wall motion abnormalities. History of Present Illness Reason for Consultation: Abdominal pain; chest pain; History of CAD Requesting Physician: Dr. Calderon Attending Physician: Dr. Lott History of Present Illness Patient is a 54 year old male who is known to [facility], following with Dr. Zapata as an outpatient for history of CAD s/p NSTEMI on November 11, receiving a ROXANA to the occluded RCA with good results. Other coronary arteries demonstrated moderate luminal irregularities other coronary arteries. Echocardiogram at that time with preserved LV systolic function, LVEF 55-60% with subtle hypokinesis in the basilar inferior/posterior wall otherwise normal wall motion and no valvular heart disease. Patient reports he has been in good health since stent placement, performing cardiac rehab without chest pain or need for SL nitro. Yesterday afternoon, he ate lunch and began to notice epigastric pain radiating across his upper abdomen with radiation to his left chest. Symptoms were non exertional and persistent. He felt this was different than prior [place] in October 2019, but tried 1 SL nitro without relief. His symptoms progressed over the next few hours with worsening abdominal discomfort and he came to ER for evaluation. Upon arrival, he was found to be hypertensive and nitro patch was placed (now discontinued). Initial EKg demonstrated mild T wave inversion in III and AVF, resolved on repeat. Chest xray was unremarkable. Troponin negative x3. LFT's were elevated on arrival and have increased overnight. US of the abdomen revealed Cholelithiasis without sonographic evidence of acute cholecystitis. GI and gen surgery were consulted as well. At time of consult, patient reports improved symptoms of abdominal discomfort c ompared to last night. No nausea or vomiting. No chest pain, SOB, palpitations. BP improved. No fever, cough, chills. No orthopnea, PND or edema. Allergies Allergy/AdvReac Type Severity Reaction Status Date / Time No Known Allergies Allergy Verified 12/30/19 18:54 Home Medications Home Medications Medication Instructions Recorded Confirmed Type aspirin 81 mg PO QAM 12/30/19 12/30/19 History atorvastatin 80 mg PO QAM 12/30/19 12/30/19 History lisinopril 10 mg PO QAM 12/30/19 12/30/19 History metoprolol tartrate 25 mg PO BID 12/30/19 12/30/19 History nitroglycerin [Nitrostat] See Rx Instructions .ROUTE 12/30/19 12/30/19 History .COMPLEX PRN ticagrelor [Brilinta] 90 mg PO BID 12/30/19 12/30/19 History Patient History Medical History HTN (hypertension) Hypertensive urgency NSTEMI (non-ST elevated myocardial infarction) ROXANA x's 1 RCA Unstable angina pectoris Surgical History History of colonoscopy Family History Father Heart disease Colorectal cancer Mother Rheumatoid arthritis Social History Smoking Status: Never smoker Hx Alcohol Use: Yes Alcohol type: beer and wine Alcohol Intake Frequency: Month ly or Less Hx Substance Use: No Preferred Language: Burkinan Communication Ability: Effective Rouge Mixer Required: No Beliefs That Will Affect Care: None Current Living Situation: Spouse 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 Feels Safe at Home: Yes Safety Concerns: Feels Safe At This Time Assistive Devices: Glasses Review of Systems Review of Systems: All systems reviewed & are unremarkable except as noted in HPI & below Physical Exam Constitutional: WD/WN, vitals as above well nourished; no acute distress Neck: normal visual inspection Respiratory: normal respiratory effort, lungs clear to auscultation Cardiovascular: RRR, no murmur, no edema Gastrointestinal (Abdomen): Percussion/Palpation: + abdomen tender (mild diffuse tenderness, particularly epigastric region) Musculoskeletal: no cyanosis or clubbing, extremities motor strength 5/5 Neurologic: PERRL, EOMI, accommodation nl, no face palsy, no dysarthria Psychiatric: A+Ox3, euthymic affect Results & Data ([facility]) Vital Signs (Past 12 Hours) Vital Signs Temp Pulse Pulse Pulse Resp BP BP 12/31/19 07:48 36.8 C 61 18 114/63 12/31/19 04:00 36.6 C 60 16 102/58 L 12/30/19 23:08 37.1 C 62 18 122/74 12/30/19 22:31 37.1 C 82 16 154/82 H 12/30/19 21:30 60 13 133/79 12/30/19 21:00 69 24 142/89 H Pulse Ox 12/31/19 07:48 99 12/31/19 04:00 97 12/30/19 23:08 96 12/30/19 22:31 94 12/30/19 21:30 96 12/30/19 21:00 98 Laboratory Results 12/31/19 12/31/19 12/30/19 Range/Units 05:29 05:29 22:50 WBC 4.44 L (4.8-10.8) K/uL RBC 4.62 L (4.7-6.1) M/uL Hgb 13.5 L (14.0-18.0) g/dL Hct 41.1 L (42-52) % MCV 89.0 (80-100) fL MCH 29.2 (25-34) pg MCHC 32.8 (32-36) g/dL RDW Std Deviation 44.9 (36.4-46.3) fL RDW Coeff of Terrell 13.8 (11.5-14.5) % Plt Count 200 (130-400) K/uL MPV 11.7 H (7.4-10.4) fL Immature Gran % (Auto) 0.2 % Neut % (Auto) 63.4 % Lymph % (Auto) 23.6 % Hernando % (Auto) 6.5 % Eos % (Auto) 5.4 % Baso % (Auto) 0.9 % Neut # (Auto) 2.81 (1.4-6.5) K/uL Lymph # (Auto) 1.05 L (1.2-3.4) K/uL Hernando # (Auto) 0.29 (0.11-0.59) K/uL Eos # (Auto) 0.24 (0-0.5) K/uL Baso # (Auto) 0.04 (0-0.2) K/uL Immature Gran # (Auto) 0.01 (0.00-0.02) K/uL PT (9.0-12.0) Seconds INR (0.9-1.1) APTT (21.0-31.0) Seconds PTT Ratio Sodium 141 (136-145) mmol/L Potassium 3.6 (3.5-5.1) mmol/L Chloride 110 H (98-107) mmol/L Carbon Dioxide 27 (21-32) mmol/L Anion Gap 4.0 (3-11) BUN 8 (7-18) mg/dl Creatinine 1.00 (0.6-1.4) mg/dl Est Cr Clr Drug Dosing 105.8 ml/min Est GFR ( Amer) 99.8 Est GFR (Non-Af Amer) 86.2 BUN/Creatinine Ratio 8.1 L (10-20) Glucose 143 H (70-99) mg/dl Calcium 8.1 L (8.5-10.1) mg/dl Magnesium 1.9 (1.8-2.4) mg/dl Total Bilirubin 1.5 H (0.2-1) mg/dl Direct Bilirubin 1.0 H (0-0.2) mg/dl AST 737 H (15-37) U/L ALT 982 H (12-78) U/L Alkaline Phosphatase 172 H (45-117) U/L Troponin I < 0.015 < 0.015 (0-0.045) ng/ml Total Protein 6.0 L (6.4-8.2) gm/dl Albumin 2.9 L (3.4-5.0) gm/dl Globulin (2.5-4.0) gm/dl Albumin/Globulin Ratio (0.9-2) Lipase (73-393) U/L 12/30/19 12/30/19 12/30/19 Range/Units 17:36 17:36 17:36 WBC 7.50 (4.8-10.8) K/uL RBC 4.92 (4.7-6.1) M/uL Hgb 14.8 (14.0-18.0) g/dL Hct 43.5 (42-52) % MCV 88.4 (80-100) fL MCH 30.1 (25-34) pg MCHC 34.0 (32-36) g/dL RDW Std Deviation 44.6 (36.4-46.3) fL RDW Coeff of Terrell 13.8 (11.5-14.5) % Plt Count 226 (130-400) K/uL MPV 12.0 H (7.4-10.4) fL Immature Gran % (Auto) 0.1 % Neut % (Auto) 69.4 % Lymph % (Auto) 20.5 % Hernando % (Auto) 6.0 % Eos % (Auto) 3.7 % Baso % (Auto) 0.3 % Neut # (Auto) 5.20 (1.4-6.5) K/uL Lymph # (Auto) 1.54 (1.2-3.4) K/uL Hernando # (Auto) 0.45 (0.11-0.59) K/uL Eos # (Auto) 0.28 (0-0.5) K/uL Baso # (Auto) 0.02 (0-0.2) K/uL Immature Gran # (Auto) 0.01 (0.00-0.02) K/uL PT 10.6 (9.0-12.0) Seconds INR 1.0 (0.9-1.1) APTT 28.2 (21.0-31.0) Seconds PTT Ratio 1.0 Sodium 141 (136-145) mmol/L Potassium 3.6 (3.5-5.1) mmol/L Chloride 108 H (98-107) mmol/L Carbon Dioxide 27 (21-32) mmol/L Anion Gap 6.0 (3-11) BUN 12 (7-18) mg/dl Creatinine 1.00 (0.6-1.4) mg/dl Est Cr Clr Drug Dosing 106.1 ml/min Est GFR ( Amer) 99.8 Est GFR (Non-Af Amer) 86.2 BUN/Creatinine Ratio 11.6 (10-20) Glucose 96 (70-99) mg/dl Calcium 9.1 (8.5-10.1) mg/dl Magnesium (1.8-2.4) mg/dl Total Bilirubin 1.1 H (0.2-1) mg/dl Direct Bilirubin (0-0.2) mg/dl AST 145 H (15-37) U/L ALT 140 H (12-78) U/L Alkaline Phosphatase 131 H (45-117) U/L Troponin I < 0.015 (0-0.045) ng/ml Total Protein 7.3 (6.4-8.2) gm/dl Albumin 3.7 (3.4-5.0) gm/dl Globulin 3.6 (2.5-4.0) gm/dl Albumin/Globulin Ratio 1.0 (0.9-2) Lipase 176 (73-393) U/L Diagnostic Findings EKG on admission 12/29: NSR with possible LAE T wave inversion in lead III, nonspecific T wave abnormality in AVF, new compared to prior EKG in October 2019 Repeat EKG on 12/30: sinus bradycardia at 51 bpm Inverted T waves in inferior leads now resolved/improved Telemetry reviewed: NSR without arrhythmias Echocardiogram pending US: Cholelithiasis without sonographic evidence of acute cholecystitis. Chest xray: IMPRESSION: No active disease in the chest. Echocardiogram October 2019: LV is normal in size. Moderate LVH LV systolic function is normal wiht LVEF 55-60% Subtle hypokinesis of the basial inferior/posterior wall otherwise preserved wall motion No significant valvular heart disease Medications Administered Medications aspirin 81 mg PO QAM 12/30/19 [History Confirmed 12/30/19] atorvastatin 80 mg PO QAM 12/30/19 [History Confirmed 12/30/19] lisinopril 10 mg PO QAM 12/30/19 [History Confirmed 12/30/19] metoprolol tartrate 25 mg PO BID 12/30/19 [History Confirmed 12/30/19] nitroglycerin [Nitrostat] See Rx Instructions .ROUTE .COMPLEX PRN 12/30/19 [History Confirmed 12/30/19] ticagrelor [Brilinta] 90 mg PO BID 12/30/19 [History Confirmed 12/30/19] Home Medications Acetaminophen (Acetaminophen 325 Mg Tab) 650 mg PO Q4H PRN PRN Reason: Pain or Fever Stop: 01/29/20 22:29 Aspirin (Aspirin 81 Mg Ectab) [address] [facility] Stop: 01/30/20 08:59 Last Admin: 12/31/19 07:49 Dose: 81 mg Documented by: Atorvastatin Calcium (Atorvastatin 40 Mg Tab) [address] [facility] Stop: 01/30/20 08:59 Last Admin: 12/31/19 07:49 Dose: 80 mg Documented by: Potassium Chloride 10 meq/ (Dextrose/Sodium Chloride) 1,005 mls @ 125 mls/hr IV .Q8H3M [facility] Stop: 01/29/20 22:59 Last Admin: 12/31/19 07:44 Dose: 125 mls/hr Documented by: Piperacillin Sod/Tazobactam (Sod 3.375 gm/ Dextrose) 115 mls @ 28.75 mls/hr IV Q8H [facility]; Protocol Stop: 01/10/20 03:59 Last Infusion: 12/31/19 09:14 Dose: Infused Documented by: Lisinopril (Lisinopril 10 Mg Tab) [address] [facility] Stop: 01/30/20 08:59 Last Admin: 12/31/19 07:49 Dose: 10 mg Documented by: Metoprolol Tartrate (Metoprolol Tartrate 25 Mg Tab) 25 mg PO BID [facility] Stop: 01/29/20 22:29 Last Admin: 12/31/19 07:50 Dose: 25 mg Documented by: Miscellaneous Information (Piperacill/Tazobac Consult Active) 1 ea N/A UD PRN PRN Reason: Consult Stop: 01/29/20 22:29 Morphine Sulfate (Morphine Sulfate 4 Mg/Ml 1 Ml Carp\Vial) 3 mg IV Q3H PRN PRN Reason: Pain Stop: 01/13/20 22:29 Nitroglycerin (Nitroglycerin Sl 0.4 Mg/Tab Tab) 0.4 mg SL UD PRN PRN Reason: Chest Pain Stop: 01/29/20 22:29 Ondansetron HCl (Ondansetron Inj 2 Mg/Ml 2 Ml Vial) 4 mg IV Q6H PRN PRN Reason: Nausea Stop: 01/29/20 22:29 Ticagrelor (Ticagrelor 90 Mg Tab) 90 mg PO BID [facility] Stop: 01/29/20 22:29 Last Admin: 12/31/19 07:50 Dose: 90 mg Documented by: Current Inpatient Medications Acetaminophen (Acetaminophen 325 Mg Tab) 650 mg PO Q4H PRN PRN Reason: Pain or Fever Stop: 01/29/20 22:29 Aspirin (Aspirin 81 Mg Ectab) [address] [facility] Stop: 01/30/20 08:59 Last Admin: 12/31/19 07:49 Dose: 81 mg Documented by: Atorvastatin Calcium (Atorvastatin 40 Mg Tab) [address] [facility] Stop: 01/30/20 08:59 Last Admin: 12/31/19 07:49 Dose: 80 mg Documented by: Potassium Chloride 10 meq/ (Dextrose/Sodium Chloride) 1,005 mls @ 125 mls/hr IV .Q8H3M [facility] Stop: 01/29/20 22:59 Last Admin: 12/31/19 07:44 Dose: 125 mls/hr Documented by: Piperacillin Sod/Tazobactam (Sod 3.375 gm/ Dextrose) 115 mls @ 28.75 mls/hr IV Q8H [facility]; Protocol Stop: 01/10/20 03:59 Last Infusion: 12/31/19 09:14 Dose: Infused Documented by: Lisinopril (Lisinopril 10 Mg Tab) [address] [facility] Stop: 01/30/20 08:59 Last Admin: 12/31/19 07:49 Dose: 10 mg Documented by: Metoprolol Tartrate (Metoprolol Tartrate 25 Mg Tab) 25 mg PO BID [facility] Stop: 01/29/20 22:29 Last Admin: 12/31/19 07:50 Dose: 25 mg Documented by: Miscellaneous Information (Piperacill/Tazobac Consult Active) 1 ea N/A UD PRN PRN Reason: Consult Stop: 01/29/20 22:29 Morphine Sulfate (Morphine Sulfate 4 Mg/Ml 1 Ml Carp\Vial) 3 mg IV Q3H PRN PRN Reason: Pain Stop: 01/13/20 22:29 Nitroglycerin (Nitroglycerin Sl 0.4 Mg/Tab Tab) 0.4 mg SL UD PRN PRN Reason: Chest Pain Stop: 01/29/20 22:29 Ondansetron HCl (Ondansetron Inj 2 Mg/Ml 2 Ml Vial) 4 mg IV Q6H PRN PRN Reason: Nausea Stop: 01/29/20 22:29 Ticagrelor (Ticagrelor 90 Mg Tab) 90 mg PO BID [facility] Stop: 01/29/20 22:29 Last Admin: 12/31/19 07:50 Dose: 90 mg Documented by: (1) HTN (hypertension) Hypertension type: unspecified Qualified Code(s): I10 - Essential (primary) hypertension (2) Cholelithiasis Biliary obstruction: with biliary obstruction Cholecystitis presence: without cholecystitis Cholelithiasis location: gallbladder and bile duct Qualified Code(s): K80.71 - Calculus of gallbladder and bile duct without cholecystitis with obstruction
--- NOTE | 2019-12-31 08:53 | Hospitalist Progress Note ---
Date of Service December 31, 2019 Assessment & Plan (1) Abdominal pain: (2) Elevated LFTs: (3) Cholelithiasis: This 54-year-old male presents with abdominal pain radiating to the chest. Abdominal pain in the upper abdomen and lower chest, radiating to the left side of chest. He recently had a non-ST elevation myocardial infarction with a stent to the right coronary artery. His initial troponin is negative. He has some EKG changes with T-wave inversions in inferior leads on admission. Gallbladder ultrasound showed gallstones and he also had some right upper quadrant abdominal tenderness, could be biliary colic versus cholecystitis. We will rule out acute coronary syndrome because of recent history and ekg changes. We will follow serial enzymes, echocardiogram is pending. Keep n.p.o. for now. Empirically started on IV Zosyn on admission. Repeat LFTs in a.m. Consult surgery and GI in a.m. ERCP /MRCP as per GI. AST, ALT elevated in the morning, GI recommends MRCP. Patient may need ERCP, plan to discuss further with cardiology. Per cardiology, given recent stent to RCA, patient has to remain on dual antiplatelet therapy. (4) Status post insertion of drug-eluting stent into right coronary artery for coronary artery disease: History of coronary artery disease, recently in October he had RCA stent. He recently had a non-ST elevation myocardial infarction with a stent to the right coronary artery. He had some EKG changes with T-wave inversions in inferior leads on admission. Continue his home medication of aspirin, statin, Brilinta, lisinopril, metoprolol. Troponin x3 negative. Cardiology consulted. Echocardiogram obtained, shows normal LV function, EF 55 to 60%, LV normal in size, left ventricular wall motion is normal, right ventricular systolic function is normal. Given his recent stent to RCA, patient has to remain on dual antiplatelet therapy (ASA and Brilinta ) during any GI work-up. Hyperlipidemia. Continue statin. Hypertension. Continue lisinopril, metoprolol. Will monitor the blood pressure. DVT prophylaxis, sequential compression devices. Admission and Anticipated Discharge Date Admission Date: December 30, 2019 Subjective Patient is currently lying in bed, not in distress. Currently denies any significant chest or abdominal pain. He does report having upper quadrant abdominal pain and substernal chest pain previously. Currently denies any fevers or chills. Seen by cardiology, GI, surgery. Awaiting MRCP. Review of Systems Review of Systems: All systems reviewed & are unremarkable except as noted in HPI & below Constitutional: no fever and no chills Respiratory: no cough and no dyspnea Cardiovascular: no chest pain and no palpitations Gastrointestinal: + abdominal pain (improved); no vomiting Physical Exam Physical Exam: GENERAL: The patient is of moderate build, not in acute distress. HEENT: Pupils equal, round, and reactive to light. Oral mucosa moist. NECK: No JVD, no neck masses. CARDIOVASCULAR: S1, S2 heard, regular rate and rhythm, no murmur, no gallop. RESPIRATORY SYSTEM: Normal AP diameter. No accessory muscle use. No wheezing, no crackles. ABDOMEN: Soft, bowel sounds present. Right upper quadrant tenderness (mild) present. No guarding, no rigidity, no distention. NEURO: Alert and oriented x3, no facial asymmetry, speech fluent, moves all 4 extremities spontaneously, cranial nerves II-XII grossly intact, nonfocal. EXTREMITIES: No edema, no erythema. SKIN: Warm, dry, no rashes or lesions noted. Results & Data Results & Data ([facility]) Vital Signs (Past 12 Hours) Vital Signs Temp Pulse Pulse Pulse Resp BP BP 12/31/19 07:48 36.8 C 61 18 114/63 12/31/19 04:00 36.6 C 60 16 102/58 L 12/30/19 23:08 37.1 C 62 18 122/74 12/30/19 22:31 37.1 C 82 16 154/82 H 12/30/19 21:30 60 13 133/79 12/30/19 21:00 69 24 142/89 H Pulse Ox 12/31/19 07:48 99 12/31/19 04:00 97 12/30/19 23:08 96 12/30/19 22:31 94 12/30/19 21:30 96 12/30/19 21:00 98 Laboratory Results 12/31/19 12/31/19 12/30/19 Range/Units 05:29 05:29 22:50 WBC 4.44 L (4.8-10.8) K/uL RBC 4.62 L (4.7-6.1) M/uL Hgb 13.5 L (14.0-18.0) g/dL Hct 41.1 L (42-52) % MCV 89.0 (80-100) fL MCH 29.2 (25-34) pg MCHC 32.8 (32-36) g/dL RDW Std Deviation 44.9 (36.4-46.3) fL RDW Coeff of Terrell 13.8 (11.5-14.5) % Plt Count 200 (130-400) K/uL MPV 11.7 H (7.4-10.4) fL Immature Gran % (Auto) 0.2 % Neut % (Auto) 63.4 % Lymph % (Auto) 23.6 % Telfair % (Auto) 6.5 % Eos % (Auto) 5.4 % Baso % (Auto) 0.9 % Neut # (Auto) 2.81 (1.4-6.5) K/uL Lymph # (Auto) 1.05 L (1.2-3.4) K/uL Telfair # (Auto) 0.29 (0.11-0.59) K/uL Eos # (Auto) 0.24 (0-0.5) K/uL Baso # (Auto) 0.04 (0-0.2) K/uL Immature Gran # (Auto) 0.01 (0.00-0.02) K/uL PT (9.0-12.0) Seconds INR (0.9-1.1) APTT (21.0-31.0) Seconds PTT Ratio Sodium 141 (136-145) mmol/L Potassium 3.6 (3.5-5.1) mmol/L Chloride 110 H (98-107) mmol/L Carbon Dioxide 27 (21-32) mmol/L Anion Gap 4.0 (3-11) BUN 8 (7-18) mg/dl Creatinine 1.00 (0.6-1.4) mg/dl Est Cr Clr Drug Dosing 105.8 ml/min Est GFR ( Amer) 99.8 Est GFR (Non-Af Amer) 86.2 BUN/Creatinine Ratio 8.1 L (10-20) Glucose 143 H (70-99) mg/dl Calcium 8.1 L (8.5-10.1) mg/dl Magnesium 1.9 (1.8-2.4) mg/dl Total Bilirubin 1.5 H (0.2-1) mg/dl Direct Bilirubin 1.0 H (0-0.2) mg/dl AST 737 H (15-37) U/L ALT 982 H (12-78) U/L Alkaline Phosphatase 172 H (45-117) U/L Troponin I < 0.015 < 0.015 (0-0.045) ng/ml Total Protein 6.0 L (6.4-8.2) gm/dl Albumin 2.9 L (3.4-5.0) gm/dl Globulin (2.5-4.0) gm/dl Albumin/Globulin Ratio (0.9-2) Lipase (73-393) U/L 12/30/19 12/30/19 12/30/19 Range/Units 17:36 17:36 17:36 WBC 7.50 (4.8-10.8) K/uL RBC 4.92 (4.7-6.1) M/uL Hgb 14.8 (14.0-18.0) g/dL Hct 43.5 (42-52) % MCV 88.4 (80-100) fL MCH 30.1 (25-34) pg MCHC 34.0 (32-36) g/dL RDW Std Deviation 44.6 (36.4-46.3) fL RDW Coeff of Terrell 13.8 (11.5-14.5) % Plt Count 226 (130-400) K/uL MPV 12.0 H (7.4-10.4) fL Immature Gran % (Auto) 0.1 % Neut % (Auto) 69.4 % Lymph % (Auto) 20.5 % Telfair % (Auto) 6.0 % Eos % (Auto) 3.7 % Baso % (Auto) 0.3 % Neut # (Auto) 5.20 (1.4-6.5) K/uL Lymph # (Auto) 1.54 (1.2-3.4) K/uL Telfair # (Auto) 0.45 (0.11-0.59) K/uL Eos # (Auto) 0.28 (0-0.5) K/uL Baso # (Auto) 0.02 (0-0.2) K/uL Immature Gran # (Auto) 0.01 (0.00-0.02) K/uL PT 10.6 (9.0-12.0) Seconds INR 1.0 (0.9-1.1) APTT 28.2 (21.0-31.0) Seconds PTT Ratio 1.0 Sodium 141 (136-145) mmol/L Potassium 3.6 (3.5-5.1) mmol/L Chloride 108 H (98-107) mmol/L Carbon Dioxide 27 (21-32) mmol/L Anion Gap 6.0 (3-11) BUN 12 (7-18) mg/dl Creatinine 1.00 (0.6-1.4) mg/dl Est Cr Clr Drug Dosing 106.1 ml/min Est GFR ( Amer) 99.8 Est GFR (Non-Af Amer) 86.2 BUN/Creatinine Ratio 11.6 (10-20) Glucose 96 (70-99) mg/dl Calcium 9.1 (8.5-10.1) mg/dl Magnesium (1.8-2.4) mg/dl Total Bilirubin 1.1 H (0.2-1) mg/dl Direct Bilirubin (0-0.2) mg/dl AST 145 H (15-37) U/L ALT 140 H (12-78) U/L Alkaline Phosphatase 131 H (45-117) U/L Troponin I < 0.015 (0-0.045) ng/ml Total Protein 7.3 (6.4-8.2) gm/dl Albumin 3.7 (3.4-5.0) gm/dl Globulin 3.6 (2.5-4.0) gm/dl Albumin/Globulin Ratio 1.0 (0.9-2) Lipase 176 (73-393) U/L Medications Administered Current Inpatient Medications Acetaminophen (Acetaminophen 325 Mg Tab) 650 mg PO Q4H PRN PRN Reason: Pain or Fever Stop: 01/29/20 22:29 Aspirin (Aspirin 81 Mg Ectab) 81 mg PO [facility] Stop: 01/30/20 08:59 Last Admin: 12/31/19 07:49 Dose: 81 mg Documented by: Atorvastatin Calcium (Atorvastatin 40 Mg Tab) 80 mg PO [facility] Stop: 01/30/20 08:59 Last Admin: 12/31/19 07:49 Dose: 80 mg Documented by: Potassium Chloride 10 meq/ (Dextrose/Sodium Chloride) 1,005 mls @ 125 mls/hr IV .Q8H3M [facility] Stop: 01/29/20 22:59 Last Admin: 12/31/19 07:44 Dose: 125 mls/hr Documented by: Piperacillin Sod/Tazobactam (Sod 3.375 gm/ Dextrose) 115 mls @ 28.75 mls/hr IV Q8H [facility]; Protocol Stop: 01/10/20 03:59 Last Admin: 12/31/19 05:18 Dose: 28.8 mls/hr Documented by: Lisinopril (Lisinopril 10 Mg Tab) 10 mg PO QAM [facility] Stop: 01/30/20 08:59 Last Admin: 12/31/19 07:49 Dose: 10 mg Documented by: Metoprolol Tartrate (Metoprolol Tartrate 25 Mg Tab) 25 mg PO BID [facility] Stop: 01/29/20 22:29 Last Admin: 12/31/19 07:50 Dose: 25 mg Documented by: Miscellaneous Information (Piperacill/Tazobac Consult Active) 1 ea N/A UD PRN PRN Reason: Consult Stop: 01/29/20 22:29 Morphine Sulfate (Morphine Sulfate 4 Mg/Ml 1 Ml Carp\Vial) 3 mg IV Q3H PRN PRN Reason: Pain Stop: 01/13/20 22:29 Nitroglycerin (Nitroglycerin Sl 0.4 Mg/Tab Tab) 0.4 mg SL UD PRN PRN Reason: Chest Pain Stop: 01/29/20 22:29 Ondansetron HCl (Ondansetron Inj 2 Mg/Ml 2 Ml Vial) 4 mg IV Q6H PRN PRN Reason: Nausea Stop: 01/29/20 22:29 Ticagrelor (Ticagrelor 90 Mg Tab) 90 mg PO BID [facility] Stop: 01/29/20 22:29 Last Admin: 12/31/19 07:50 Dose: 90 mg Documented by: (1) Cholelithiasis Biliary obstruction: with biliary obstruction Cholecystitis presence: without cholecystitis Cholelithiasis location: gallbladder and bile duct Qualified Code(s): K80.71 - Calculus of gallbladder and bile duct without cholecystitis with obstruction
[2019-12-31] MEDS: POTASSIUM CHLORIDE / WTR 10 MEQ/100 ML PLCT IV SCH ×2 (09:56→10:54)
--- NOTE | 2019-12-31 10:09 | Gastrointestinal Consultation ---
Date of Consultation December 31, 2019 Assessment & Plan (1) Elevated LFTs: (2) Abdominal pain: (3) Cholelithiasis: Pt is a 54 y/o male who presented w upper abd pain radiating to back, nausea, noted to have elevated LFTs, cholelithiasis w/o over CBD dilation on RUQ u/s. Family hx + for unspecified liver dz as well. - Obtain MRCP to r/o choledocholithiasis. - Surgery consulted, to determine timing of cholecystectomy based on Cardiology's input (pt w recent drug eluting cardiac stent placement on 10/2019, on Brilinta). - Will consult Anesthesia to eval as well on risks if pt needs ERCP should MRCP show choledocholithiasis - Monitor LFTs - Obtain serologies to r/o acute hepatitis , [facility] Supervising Physician Co-Signing Physician Notes I have seen and examined the patient and discussed the management with PATRICK Van. 54 yo male with a history of acute coronary syndrome with elizabeth to the [facility] on brillinta, admitted yesterday through the er for acute upper abdominal/chest pain- responded to cardiac cocktail, feeling better today regarding pain. PE - well nourished male wearing a mask in no acute distress, HEENT - perrla, CV - rrr no mrg, pulm ctab, Abd- soft nt nd +bs Labs reviewed TB 1.1 to 1.5, lft's went from 145 to 737, 140 to 989, lipase 176, cbc and bmp wnl Gb marcelo reviewed- cholelithiasis, no cbd dilation MRCP later today- plan for pending mrcp results. Needs to remain on brillinta given recent elizabeth to [facility] in 11/12. History of Present Illness Reason for Consultation: Gallstones, elevated LFTs Requesting Physician: Dr. Diego Coulter Attending Physician: Dr. Guillermina Falcon History of Present Illness Pt is a 54 y/o male w PMHx of HTN, dyslipidemia, CAD s/p drug eluting stent placement on 10/2019 who presented yesterday w upper abd pain, nausea. He initially though he has angina and took Nitro, but it made him have palpitations. His abd pain did radiate to his back. Hx of GERD but this isn't similar to previous GERD episodes. He denies bowel habit changes. On evaluation, labs showed newly elevated LFTs: Tbili 1.5, AST 737, ALT 982, Alk phos 172, Lipase normal at 176. Gallbladder u/s showed cholelithiasis w/o overt signs of cholecystitis, CBD 0.4cm. He denies hx of abdominal surgeries. No tobacco, illicit drug uses, tattoos, body piercing. Last ETOH intake was months ago Denies APAP uses, herbal supplements, new antibx Grandfather w hx of alcoholism, cirrhosis. Paternal aunt and cousins w liver dz but he isn't sure of specifics. Allergies Allergy/AdvReac Type Severity Reaction Status Date / Time No Known Allergies Allergy Verified 12/30/19 18:54 Home Medications Home Medications Medication Instructions Recorded Confirmed Type aspirin 81 mg PO QAM 12/30/19 12/30/19 History atorvastatin 80 mg PO QAM 12/30/19 12/30/19 History lisinopril 10 mg PO QAM 12/30/19 12/30/19 History metoprolol tartrate 25 mg PO BID 12/30/19 12/30/19 History nitroglycerin [Nitrostat] See Rx Instructions .ROUTE 12/30/19 12/30/19 History .COMPLEX PRN ticagrelor [Brilinta] 90 mg PO BID 12/30/19 12/30/19 History Patient History Medical History HTN (hypertension) Hypertensive urgency NSTEMI (non-ST elevated myocardial infarction) ELIZABETH x's 1 RCA Unstable angina pectoris Surgical History History of colonoscopy Family History Father Heart disease Colorectal cancer Mother Rheumatoid arthritis Social History Smoking Status: Never smoker Hx Alcohol Use: Yes Alcohol type: beer and wine Alcohol Intake Frequency: Monthly or Less Hx Substance Use: No Preferred Language: [place] Communication Ability: Effective Manager Employee Benefits Required: No Beliefs That Will Affect Care: None Current Living Situation: Spouse 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 Feels Safe at Home: Yes Safety Concerns: Feels Safe At This Time Assistive Devices: Glasses Review of Systems Review of Systems: All systems reviewed & are unremarkable except as noted in HPI & below Physical Exam Constitutional: WD/WN, vitals as above well groomed, cooperative and comfortable Eyes: PERRL, conjunctivae normal, anicteric sclerae ENMT: external ear and nose normal, oropharynx normal Respiratory: normal respiratory effort, lungs clear to auscultation Cardiovascular: RRR, no murmur, no edema Gastrointestinal (Abdomen): Inspection/Auscultation: + hypoactive bowel sounds Percussion/Palpation: + abdomen tender (RUQ) and abdomen soft Skin: no rashes, warm and dry no jaundice Psychiatric: A+Ox3, euthymic affect Lymphatic: no lymphedema Results & Data ([facility]) Vital Signs (Past 12 Hours) Vital Signs Temp Pulse Pulse Resp BP Pulse Ox 12/31/19 07:48 36.8 C 61 18 114/63 99 12/31/19 04:00 36.6 C 60 16 102/58 L 97 12/30/19 23:08 37.1 C 62 18 122/74 96 12/30/19 22:31 37.1 C 82 16 154/82 H 94 (1) Cholelithiasis Biliary obstruction: with biliary obstruction Cholecystitis presence: without cholecystitis Cholelithiasis location: gallbladder and bile duct Qualified Code(s): K80.71 - Calculus of gallbladder and bile duct without cholecystitis with obstruction
[2019-12-31 11:13] LABS: Ferritin 318.6 ng/ml (8-388)
[2019-12-31 11:31] LABS: Hepatitis B Surface Antigen Neg (Neg)
--- NOTE | 2019-12-31 11:46 | Electrocardiogram Report ---
Test Reason : Blood Pressure : / mmHG Vent. Rate : 062 BPM Atrial Rate : 062 BPM P-R Int : 134 ms QRS Dur : 094 ms QT Int : 418 ms P-R-T Axes : 050 040 -03 degrees QTc Int : 424 ms Normal sinus rhythm Possible Left atrial enlargement Borderline ECG When compared with ECG of 13-NOV-2019 12:19, Inverted T waves have replaced nonspecific T wave abnormality in Inferior leads Confirmed by Tony Molina ([id number]) on 12/31/2019 11:45:46 AM Referred By: REFERRED SELF Confirmed By:Rodri Molina
--- NOTE | 2019-12-31 11:52 | Electrocardiogram Report ---
Test Reason : Blood Pressure : / mmHG Vent. Rate : 051 BPM Atrial Rate : 051 BPM P-R Int : 150 ms QRS Dur : 094 ms QT Int : 458 ms P-R-T Axes : 051 065 039 degrees QTc Int : 422 ms Sinus bradycardia Otherwise normal ECG When compared with ECG of 30-DEC-2019 17:09, (unconfirmed) Nonspecific T wave abnormality has replaced inverted T waves in Inferior leads Confirmed by Tony Molina ([id number]) on 12/31/2019 11:52:21 AM Referred By: REFERRED SELF Confirmed By:Rodri Molina
[2019-12-31 11:59] LABS: Hepatitis C IgG 13Yrs+Old_Rflx Neg (Neg)
--- NOTE | 2019-12-31 16:56 | Anesthesiology Consultation ---
Date of Service December 31, 2019 Assessment & Plan Chart Review Chart Review: Acceptable Risk for Surgery and Patient NOT seen in Pre Admission Testing Pt had ROXANA placed 11/12. seen by cardiology. GI workup must be done under dual antiplatelet therapy History Height/Weight Height: 6 ft Weight: 100.1 kg Allergies Allergy/AdvReac Type Severity Reaction Status Date / Time No Known Allergies Allergy Verified 12/30/19 18:54 Medications Home Medications Medication Instructions Recorded Confirmed Last Taken aspirin 81 mg PO QAM 12/30/19 12/30/19 12/30/19 atorvastatin 80 mg PO QAM 12/30/19 12/30/19 12/30/19 lisinopril 10 mg PO QAM 12/30/19 12/30/19 12/30/19 metoprolol tartrate 25 mg PO BID 12/30/19 12/30/19 12/30/19 AM DOSE nitroglycerin [Nitrostat] See Rx Instructions .ROUTE 12/30/19 12/30/19 Unknown .COMPLEX PRN ticagrelor [Brilinta] 90 mg PO BID 12/30/19 12/30/19 12/30/19 AM DOSE Active Medications Generic Name Dose Route Start Last Admin Trade Name Freq PRN Reason Stop Dose Admin Aspirin 81 mg 12/31/19 09:00 12/31/19 07:49 Aspirin 81 Mg Ectab PO 01/30/20 08:59 81 mg QAM AMBER Administration Atorvastatin Calcium 80 mg 12/31/19 09:00 12/31/19 07:49 Atorvastatin 40 Mg Tab PO 01/30/20 08:59 80 mg QAM AMBER Administration Potassium Chloride 10 meq/ 1,005 mls @ 125 mls/hr 12/30/19 23:00 12/31/19 16:02 Dextrose/Sodium Chloride IV 01/29/20 22:59 125 mls/hr .Q8H3M AMBER Administration Piperacillin Sod/Tazobactam 115 mls @ 28.75 mls/hr 12/31/19 04:00 12/31/19 16:02 Sod 3.375 gm/ Dextrose IV 01/10/20 03:59 0 mls/hr Q8H AMBER Infusion Protocol Lisinopril 10 mg 12/31/19 09:00 12/31/19 07:49 Lisinopril 10 Mg Tab PO 01/30/20 08:59 10 mg QAM AMBER Administration Metoprolol Tartrate 25 mg 12/30/19 22:30 12/31/19 07:50 Metoprolol Tartrate 25 Mg Tab PO 01/29/20 22:29 25 mg BID AMBER Administration Ticagrelor 90 mg 12/30/19 22:30 12/31/19 07:50 Ticagrelor 90 Mg Tab PO 01/29/20 22:29 90 mg BID AMBER Administration Past Medical History Medical History HTN (hypertension) Hypertensive urgency NSTEMI (non-ST elevated myocardial infarction) ROXANA x's 1 RCA Unstable angina pectoris Past Family History Family History Father Heart disease Colorectal cancer Mother Rheumatoid arthritis Past Surgical History Surgical History History of colonoscopy Social History Smoking Status: Never smoker Hx Alcohol Use: Yes Alcohol type: beer and wine alcohol intake frequency: holidays/special occasions only Hx Substance Use: No substance use type: does not use Physical Exam Vital Signs Last Vital Signs Temp 36.8 C 12/31/19 15:21 Pulse 52 L 12/31/19 15:21 Resp 19 12/31/19 15:21 BP 106/60 12/31/19 15:21 Pulse Ox 95 12/31/19 15:21 Testing Laboratory Results 12/31/19 05:29 12/31/19 05:29 PT 10.6 Seconds (9.0-12.0) 12/30/19 17:36 INR 1.0 (0.9-1.1) 12/30/19 17:36 APTT 28.2 Seconds (21.0-31.0) 12/30/19 17:36 Echocardiogram Date: 12/31/19 EF: 55-60% LV Function: normal
--- NOTE | 2019-12-31 19:57 | Magnetic Resonance Report ---
MR MRCP CLINICAL HISTORY: Right upper quadrant abdominal pain COMPARISON STUDY: Gallbladder ultrasound dated 12/30/2019 FINDINGS: A breath-hold MRCP was performed. MIP images were acquired. There are multiple gallstones. There is pericholecystic fluid. There is no evidence of intra or extrahepatic biliary ductal dilatation. The common bile duct measure s 3 mm. There are no ductal filling defects to indicate calculi. The pancreatic duct is of normal caliber. IMPRESSION: 1. Cholelithiasis with minimal pericholecystic fluid 2. No evidence of intra or extrahepatic biliary ductal dilatation 3. No ductal calculi identified 4. Normal pancreatic duct ACT 112: Negative or not required by law. Electronically signed by: Desmond Samuel M.D. 12/31/2019 7:56 PM
[2020-01-01] MEDS: POTASSIUM CHLORIDE 10 MEQ in D5W AND NSS 1,000 ML IV SCH ×3 (00:22→19:25)
[2020-01-01] MEDS: PIPERACILLIN/TAZOBACTAM 3.375 GM in DEXTROSE 5% 100 ML IV SCH ×3 (05:18→19:25)
[2020-01-01] MEDS ORDERED: INDOMETHACIN 50 MG SUPP PR ONE (07:15)
[2020-01-01 07:17] LABS: Basophils # (auto) 0.02 K/uL (0-0.2); Basophils % (auto) 0.4 %; Eosinophils # (auto) 0.56 K/uL (0-0.5); Eosinophils % (auto) 11.3 %; Hematocrit (blood only) 41.4 % (42-52); Hemoglobin 13.6 g/dL (14.0-18.0); Immature Granulocytes # (auto) 0.01 K/uL (0.00-0.02); Immature Granulocytes % (auto) 0.2 %; Lymphocytes # (auto) 1.15 K/uL (1.2-3.4); Lymphocytes % (auto) 23.3 %; Mean Corpuscular Hemoglobin 29.4 pg (25-34); Mean Corpuscular Hgb Conc 32.9 g/dL (32-36); Mean Corpuscular Volume 89.6 fL (80-100); Monocytes # (auto) 0.42 K/uL (0.11-0.59); Monocytes % (auto) 8.5 %; Neutrophils # (auto) 2.78 K/uL (1.4-6.5); Neutrophils % (auto) 56.3 %; Platelet Count 187 K/uL (130-400); RDW Standard Deviation 45.8 fL (36.4-46.3); Red Blood Count 4.62 M/uL (4.7-6.1); White Blood Count 4.94 K/uL (4.8-10.8)
[2020-01-01 07:44] LABS: BUN Creatinine Ratio 3.6 (10-20); Calcium 8.7 mg/dl (8.5-10.1); Creatinine Clr Calc Pharmacy 107.4 ml/min; Est GFR (African American) 101.1; Est GFR (Non-African American) 87.2; Magnesium 2.1 mg/dl (1.8-2.4); Potassium 3.8 mmol/L (3.5-5.1)
[2020-01-01 07:45] LABS: Phosphorus 2.6 mg/dl (2.5-4.9)
--- NOTE | 2020-01-01 08:43 | Hospitalist Progress Note ---
Date of Service January 01, 2020 Assessment & Plan (1) Abdominal pain: (2) Elevated LFTs: (3) Choledocholithiasis: (4) Cholelithiasis: 54 y/o male presents with abdominal pain radiating to the chest. Abdominal pain in the upper abdomen and lower chest, radiating to the left side of chest. He recently had a non-ST elevation myocardial infarction with a stent to the right coronary artery. His initial troponin is negative. He has some EKG changes with T-wave inversions in inferior leads on admission. Gallbladder ultrasound showed gallstones and he also had some right upper quadrant abdominal tenderness, could be biliary colic versus cholecystitis. We will rule out acute coronary syndrome because of recent history and ekg changes. We will follow serial enzymes, echocardiogram is pending. Keep n.p.o. for now. Empirically started on IV Zosyn on admission. Repeat LFTs in a.m. Consult surgery and GI in a.m. ERCP /MRCP as per GI. AST, ALT elevated in the morning, GI recommends MRCP. MRCP unremarkable, plan for ERCP/ EUS by GI Per cardiology, given recent stent to RCA, patient has to remain on dual antiplatelet therapy during any procedure. Patient is currently s/p EUS/ERCP w/ GI (01/01/20). CBD stones removed, CBD and PD stents placed. Recommend: Repeat ERCP in 3 months to exchange the stent. Surgery for Lap hermilo once cleared from Cardiology to hold antiplatelets. (5) Status post insertion of drug-eluting stent into right coronary artery for coronary artery disease: History of coronary artery disease, recently in October he had RCA stent. He recently had a non-ST elevation myocardial infarction with a stent to the right coronary artery. He had some EKG changes with T-wave inversions in inferior leads on admission. Continue his home medication of aspirin, statin, Brilinta, lisinopril, metoprolol. Troponin x3 negative. Cardiology consulted. Echocardiogram obtained, shows normal LV function, EF 55 to 60%, LV normal in size, left ventricular wall motion is normal, right ventricular systolic function is normal. Given his recent stent to RCA, patient has to remain on dual antiplatelet therapy (ASA and Brilinta ) during any GI work-up. Hyperlipidemia. Continue statin. Hypertension. Continue lisinopril, metoprolol. Will monitor the blood pressure. DVT prophylaxis, sequential compression devices. Admission and Anticipated Discharge Date Admission Date: December 30, 2019 Subjective Patient is currently lying in bed, s/p EUS/ERCP w/ GI. CBD stones removed, CBD and PD stents placed. Currently denies any fever, chills, nausea, vomiting, shortness of breath, has some mild epigastric discomfort. Recommend: Repeat ERCP in 3 months to exchange the stent. Surgery for Lap hermilo once cleared from Cardiology to hold antiplatelets. Review of Systems Review of Systems: All systems reviewed & are unremarkable except as noted in HPI & below Constitutional: no fever and no chills Respiratory: no cough and no dyspnea Cardiovascular: no chest pain and no palpitations Gastrointestinal: no abdominal pain, no nausea and no vomiting Physical Exam Physical Exam: GENERAL: The patient is of moderate build, not in acute distress. HEENT: Pupils equal, round, and reactive to light. Oral mucosa moist. NECK: No JVD, no neck masses. CARDIOVASCULAR: S1, S2 heard, regular rate and rhythm, no murmur, no gallop. RESPIRATORY SYSTEM: Normal AP diameter. No accessory muscle use. No wheezing, no crackles. ABDOMEN: Soft, bowel sounds present. epigastric tenderness (mild) present. No guarding, no rigidity, no distention. NEURO: Alert and oriented x3, no facial asymmetry, speech fluent, moves all 4 extremities spontaneously, cranial nerves II-XII grossly intact, nonfocal. EXTREMITIES: No edema, no erythema. SKIN: Warm, dry, no rashes or lesions noted. Results & Data Results & Data ([facility]) Vital Signs (Past 12 Hours) Vital Signs Temp Pulse Resp BP Pulse Ox 01/01/20 08:03 36.5 C 50 L 19 121/77 97 01/01/20 02:52 36.6 C 57 L 16 124/75 97 12/31/19 23:03 36.7 C 55 L 16 117/75 97 Laboratory Results 01/01/20 01/01/20 12/31/19 Range/Units 06:30 06:30 17:15 WBC 4.94 (4.8-10.8) K/uL RBC 4.62 L (4.7-6.1) M/uL Hgb 13.6 L (14.0-18.0) g/dL Hct 41.4 L (42-52) % MCV 89.6 (80-100) fL MCH 29.4 (25-34) pg MCHC 32.9 (32-36) g/dL RDW Std Deviation 45.8 (36.4-46.3) fL RDW Coeff of Terrell 14.0 (11.5-14.5) % Plt Count 187 (130-400) K/uL MPV 12.0 H (7.4-10.4) fL Immature Gran % (Auto) 0.2 % Neut % (Auto) 56.3 % Lymph % (Auto) 23.3 % [place] % (Auto) 8.5 % Eos % (Auto) 11.3 % Baso % (Auto) 0.4 % Neut # (Auto) 2.78 (1.4-6.5) K/uL Lymph # (Auto) 1.15 L (1.2-3.4) K/uL [place] # (Auto) 0.42 (0.11-0.59) K/uL Eos # (Auto) 0.56 H (0-0.5) K/uL Baso # (Auto) 0.02 (0-0.2) K/uL Immature Gran # (Auto) 0.01 (0.00-0.02) K/uL Sodium 144 (136-145) mmol/L Potassium 3.8 (3.5-5.1) mmol/L Chloride 117 H (98-107) mmol/L Carbon Dioxide 24 (21-32) mmol/L Anion Gap 4.0 (3-11) BUN 4 L (7-18) mg/dl Creatinine 0.99 (0.6-1.4) mg/dl Est Cr Clr Drug Dosing 107.4 ml/min Est GFR ( Amer) 101.1 Est GFR (Non-Af Amer) 87.2 BUN/Creatinine Ratio 3.6 L (10-20) Glucose 129 H (70-99) mg/dl Calcium 8.7 (8.5-10.1) mg/dl Phosphorus 2.6 D (2.5-4.9) mg/dl Magnesium 2.1 (1.8-2.4) mg/dl Iron (35-175) mcg/dl TIBC (250-450) mcg/dl Transferrin (200-360) mg/dl Transferrin % Sat (20-50) % Ferritin (8-388) ng/ml Troponin I (0-0.045) ng/ml Gtmsc-2-Xqqjvpklmwb Ceruloplasmin REX Screen Anti-Mitochondrial Ab Anti-Smooth Muscle Ab COVID-19 Eval Order COVID-19 PCR NEGATIVE (Negative) Hepatitis A IgM Ab Hep Bs Antigen (Neg) Hep B Core IgM Ab Hepatitis C Antibody (Neg) 12/31/19 12/31/19 12/31/19 Range/Units 17:15 10:31 10:31 WBC (4.8-10.8) K/uL RBC (4.7-6.1) M/uL Hgb (14.0-18.0) g/dL Hct (42-52) % MCV (80-100) fL MCH (25-34) pg MCHC (32-36) g/dL RDW Std Deviation (36.4-46.3) fL RDW Coeff of Terrell (11.5-14.5) % Plt Count (130-400) K/uL MPV (7.4-10.4) fL Immature Gran % (Auto) % Neut % (Auto) % Lymph % (Auto) % [place] % (Auto) % Eos % (Auto) % Baso % (Auto) % Neut # (Auto) (1.4-6.5) K/uL Lymph # (Auto) (1.2-3.4) K/uL [place] # (Auto) (0.11-0.59) K/uL Eos # (Auto) (0-0.5) K/uL Baso # (Auto) (0-0.2) K/uL Immature Gran # (Auto) (0.00-0.02) K/uL Sodium (136-145) mmol/L Potassium (3.5-5.1) mmol/L Chloride (98-107) mmol/L Carbon Dioxide (21-32) mmol/L Anion Gap (3-11) BUN (7-18) mg/dl Creatinine (0.6-1.4) mg/dl Est Cr Clr Drug Dosing ml/min Est GFR ( Amer) Est GFR (Non-Af Amer) BUN/Creatinine Ratio (10-20) Glucose (70-99) mg/dl Calcium (8.5-10.1) mg/dl Phosphorus (2.5-4.9) mg/dl Magnesium (1.8-2.4) mg/dl Iron (35-175) mcg/dl TIBC (250-450) mcg/dl Transferrin (200-360) mg/dl Transferrin % Sat (20-50) % Ferritin (8-388) ng/ml Troponin I (0-0.045) ng/ml Iqdab-5-Kenkxmmuyga Pending Ceruloplasmin Pending REX Screen Pending Anti-Mitochondrial Ab Pending Anti-Smooth Muscle Ab Pending COVID-19 Eval Order Covid19 Done at [facility] COVID-19 PCR (Negative) Hepatitis A IgM Ab Pending Hep Bs Antigen Neg (Neg) Hep B Core IgM Ab Pending Hepatitis C Antibody Neg (Neg) 12/31/19 12/31/19 12/31/19 Range/Units 10:31 10:31 05:29 WBC (4.8-10.8) K/uL RBC (4.7-6.1) M/uL Hgb (14.0-18.0) g/dL Hct (42-52) % MCV (80-100) fL MCH (25-34) pg MCHC (32-36) g/dL RDW Std Deviation (36.4-46.3) fL RDW Coeff of Terrell (11.5-14.5) % Plt Count (130-400) K/uL MPV (7.4-10.4) fL Immature Gran % (Auto) % Neut % (Auto) % Lymph % (Auto) % [place] % (Auto) % Eos % (Auto) % Baso % (Auto) % Neut # (Auto) (1.4-6.5) K/uL Lymph # (Auto) (1.2-3.4) K/uL [place] # (Auto) (0.11-0.59) K/uL Eos # (Auto) (0-0.5) K/uL Baso # (Auto) (0-0.2) K/uL Immature Gran # (Auto) (0.00-0.02) K/uL Sodium (136-145) mmol/L Potassium (3.5-5.1) mmol/L Chloride (98-107) mmol/L Carbon Dioxide (21-32) mmol/L Anion Gap (3-11) BUN (7-18) mg/dl Creatinine (0.6-1.4) mg/dl Est Cr Clr Drug Dosing ml/min Est GFR ( Amer) Est GFR (Non-Af Amer) BUN/Creatinine Ratio (10-20) Glucose (70-99) mg/dl Calcium (8.5-10.1) mg/dl Phosphorus 3.6 (2.5-4.9) mg/dl Magnesium (1.8-2.4) mg/dl Iron 73 (35-175) mcg/dl TIBC 242 L (250-450) mcg/dl Transferrin 201 (200-360) mg/dl Transferrin % Sat 26 (20-50) % Ferritin 318.6 (8-388) ng/ml Troponin I < 0.015 (0-0.045) ng/ml Vxvcn-8-Kphmrtecpwj Ceruloplasmin REX Screen Anti-Mitochondrial Ab Anti-Smooth Muscle Ab COVID-19 Eval Order COVID-19 PCR (Negative) Hepatitis A IgM Ab Hep Bs Antigen (Neg) Hep B Core IgM Ab Hepatitis C Antibody (Neg) Medications Administered Current Inpatient Medications Acetaminophen (Acetaminophen 325 Mg Tab) 650 mg PO Q4H PRN PRN Reason: Pain or Fever Stop: 01/29/20 22:29 Aspirin (Aspirin 81 Mg Ectab) 81 mg PO [facility] Stop: 01/30/20 08:59 Last Admin: 12/31/19 07:49 Dose: 81 mg Documented by: Atorvastatin Calcium (Atorvastatin 40 Mg Tab) 80 mg PO [facility] Stop: 01/30/20 08:59 Last Admin: 12/31/19 07:49 Dose: 80 mg Documented by: Potassium Chloride 10 meq/ (Dextrose/Sodium Chloride) 1,005 mls @ 125 mls[facility] Stop: 01/29/20 22:59 Last Admin: 01/01/20 08:04 Dose: 125 mls/hr Documented by: Piperacillin Sod/Tazobactam (Sod 3.375 gm/ Dextrose) 115 mls @ 28.75 mls/hr IV Q8H [facility]; Protocol Stop: 01/10/20 03:59 Last Admin: 01/01/20 05:18 Dose: 28.8 mls/hr Documented by: Lisinopril (Lisinopril 10 Mg Tab) 10 mg PO [facility] Stop: 01/30/20 08:59 Last Admin: 12/31/19 07:49 Dose: 10 mg Documented by: Metoprolol Tartrate (Metoprolol Tartrate 25 Mg Tab) 25 mg PO BID [facility] Stop: 01/29/20 22:29 Last Admin: 12/31/19 21:41 Dose: 25 mg Documented by: Miscellaneous Information (Piperacill/Tazobac Consult Active) 1 ea N/A UD PRN PRN Reason: Consult Stop: 01/29/20 22:29 Morphine Sulfate (Morphine Sulfate 4 Mg/Ml 1 Ml Carp\Vial) 3 mg IV Q3H PRN PRN Reason: Pain Stop: 01/13/20 22:29 Nitroglycerin (Nitroglycerin Sl 0.4 Mg/Tab Tab) 0.4 mg SL UD PRN PRN Reason: Chest Pain Stop: 01/29/20 22:29 Ondansetron HCl (Ondansetron Inj 2 Mg/Ml 2 Ml Vial) 4 mg IV Q6H PRN PRN Reason: Nausea Stop: 01/29/20 22:29 Ticagrelor (Ticagrelor 90 Mg Tab) 90 mg PO BID [facility] Stop: 01/29/20 22:29 Last Admin: 12/31/19 21:41 Dose: 90 mg Documented by: (1) Cholelithiasis Biliary obstruction: with biliary obstruction Cholecystitis presence: without cholecystitis Cholelithiasis location: gallbladder and bile duct Qualified Code(s): K80.71 - Calculus of gallbladder and bile duct without cholecystitis with obstruction
--- NOTE | 2020-01-01 08:57 | Gastroenterology Progress Note ---
Date of Service January 01, 2020 Assessment & Plan (1) Elevated LFTs: (2) Abdominal pain: (3) Cholelithiasis: Pt is a 54 y/o male who presented w upper abd pain radiating to back, nausea, noted to have elevated LFTs, cholelithiasis w/o over CBD dilation on RUQ u/s. Family hx + for unspecified liver dz as well. MRCP obtained , no obvious filling defect, or ductal dilation. Though w symptoms and elevated LFTs, cholelithiasis findings, suspect he may have retained biliary stones. - NPO and plan for EUS/ERCP in OR by Dr. Walls today. He is aware pt will be kept on Brillinta in light of recent drug eluting cardiac stent placement. Send Indomethacin 100mg FL to OR holding to be given pre ERCP - Monitor LFTs - Obtain serologies to r/o acute hepatitis , AIH Admission and Anticipated Discharge Date Admission Date: December 30, 2019 Supervising Physician Co-Signing Physician Notes I performed a history and physical examination of the patient today, including specifically on physical exam - soft abdomen. I have discussed the patient's management with the advanced practitioner. Please refer to the nurse practitioner's note for the documented findings and plan of care. EUS/ERCP for suspected choledocholithiasis Subjective Pt feels only slight tenderness on RUQ abd area. No n/v, fever, chills. LFTs pending Review of Systems Review of Systems: All systems reviewed & are unremarkable except as noted in HPI & below Physical Exam Constitutional: WD/WN, vitals as above well groomed, cooperative and comfortable Eyes: PERRL, conjunctivae normal, anicteric sclerae ENMT: external ear and nose normal, oropharynx normal Respiratory: normal respiratory effort, lungs clear to auscultation Cardiovascular: RRR, no murmur, no edema Gastrointestinal (Abdomen): Inspection/Auscultation: normal bowel sounds Percussion/Palpation: + abdomen tender (RUQ) and abdomen soft Skin: no rashes, warm and dry no jaundice Psychiatric: A+Ox3, euthymic affect Lymphatic: no lymphedema Results & Data ([facility]) Vital Signs (Past 12 Hours) Vital Signs Temp Pulse Resp BP Pulse Ox 01/01/20 08:03 36.5 C 50 L 19 121/77 97 01/01/20 02:52 36.6 C 57 L 16 124/75 97 12/31/19 23:03 36.7 C 55 L 16 117/75 97 (1) Cholelithiasis Biliary obstruction: with biliary obstruction Cholecystitis presence: without cholecystitis Cholelithiasis location: gallbladder and bile duct Qualified Code(s): K80.71 - Calculus of gallbladder and bile duct without cholecystitis with obstruction
[2020-01-01] MEDS: ASPIRIN 81 MG ECTAB PO SCH (09:09)
[2020-01-01] MEDS: ATORVASTATIN 40 MG TAB PO SCH (09:09)
[2020-01-01] MEDS: lisinopriL 10 MG TAB PO SCH (09:09)
[2020-01-01] MEDS: METOPROLOL TARTRATE 25 MG TAB PO SCH ×2 (09:09→20:23)
[2020-01-01] MEDS: TICAGRELOR 90 MG TAB PO SCH ×2 (09:09→20:49)
[2020-01-01 09:17] LABS: Albumin Level 2.7 gm/dl (3.4-5.0); Bilirubin Direct 0.3 mg/dl (0-0.2); Bilirubin,Total 0.8 mg/dl (0.2-1); Total Protein 6.1 gm/dl (6.4-8.2)
--- NOTE | 2020-01-01 09:23 | Surgery Progress Note ---
Date of Service January 01, 2020 Assessment & Plan (1) Elevated LFTs: ERCP planned for today marilou akhtar as outpatient when he can be off Brilinta Admission and Anticipated Discharge Date Admission Date: December 30, 2019 Subjective no complaints, less pain Physical Exam Gastrointestinal (Abdomen): Percussion/Palpation: abdomen soft; abdomen nontender (RUQ) Results & Data ([facility]) Vital Signs (Past 12 Hours) Vital Signs Temp Pulse Resp BP Pulse Ox 01/01/20 08:03 36.5 C 50 L 19 121/77 97 01/01/20 02:52 36.6 C 57 L 16 124/75 97 12/31/19 23:03 36.7 C 55 L 16 117/75 97 PG Care Time/CCT Total # of Minutes Spent Total Time Spent with Patient: Total time spent is greater than 50% in coordination of care (as documented) at patient's floor/unit and/or counseling patient: Coding Level of Care Code 19778 Subseq Hosp Care Lvl 1 Diagnoses Elevated LFTs R79.89
--- NOTE | 2020-01-01 09:50 | Cardiology Progress Note ---
Date of Service January 01, 2020 Assessment & Plan (1) Cholelithiasis: (2) Elevated LFTs: (3) Status post insertion of drug-eluting stent into right coronary artery for coronary artery disease: (4) HTN (hypertension): Patient presenting with epigastric pain/abdominal pain, with findings of elevated LFT's consistent with possible choledocholithiasis. To go for EUS/ERCP today. Discussed with GI. Aware patient is to continue dual antiplatelet therapy. He will likely need future lap hermilo, once he is able to hold Brilinta. Patient had NSTEMI in October, 7 weeks ago, receiving 1 ROXANA to the RCA on 11/12/19 in setting of acute occlusion. He remains on dual antiplatelet therapy with ASA and Brilinta and may not discontinue therapy at this time. Echo this admission reveals normal LV systolic function, no wall motion abnormalities. Continue current cardiovascular meds. Case discussed with Dr. Lott. Admission and Anticipated Discharge Date Admission Date: December 30, 2019 Supervising Physician Co-Signing Physician Notes I have discussed the case with Ms. Ang, reviewed the medical record and examined the patient. He is to have a ERCP today and we will have further recommendations following the procedure. Subjective Patient resting in bed without complaints currently. Has intermittent "twinges" of epigastric and abdominal pain. No n/v/d. No chest pain. No shortness of breath, palpitations. To go for EUS/ERCP this morning. Review of Systems Review of Systems: All systems reviewed & are unremarkable except as noted in HPI & below Physical Exam 2 Constitutional: WD/WN, vitals as above well nourished; no acute distress Neck: normal visual inspection Respiratory: normal respiratory effort, lungs clear to auscultation Cardiovascular: RRR, no murmur, no edema Gastrointestinal (Abdomen): Percussion/Palpation: + abdomen tender (mild diffuse tenderness, particularly epigastric region) Musculoskeletal: no cyanosis or clubbing, extremities motor strength 5/5 Neurologic: PERRL, EOMI, accommodation nl, no face palsy, no dysarthria Psychiatric: A+Ox3, euthymic affect Results & Data ([facility]) Vital Signs (Past 12 Hours) Vital Signs Temp Pulse Resp BP Pulse Ox 01/01/20 08:03 36.5 C 50 L 19 121/77 97 01/01/20 02:52 36.6 C 57 L 16 124/75 97 12/31/19 23:03 36.7 C 55 L 16 117/75 97 Laboratory Results 01/01/20 01/01/20 01/01/20 Range/Units 06:30 06:30 06:30 WBC 4.94 (4.8-10.8) K/uL RBC 4.62 L (4.7-6.1) M/uL Hgb 13.6 L (14.0-18.0) g/dL Hct 41.4 L (42-52) % MCV 89.6 (80-100) fL MCH 29.4 (25-34) pg MCHC 32.9 (32-36) g/dL RDW Std Deviation 45.8 (36.4-46.3) fL RDW Coeff of Terrell 14.0 (11.5-14.5) % Plt Count 187 (130-400) K/uL MPV 12.0 H (7.4-10.4) fL Immature Gran % (Auto) 0.2 % Neut % (Auto) 56.3 % Lymph % (Auto) 23.3 % [place] % (Auto) 8.5 % Eos % (Auto) 11.3 % Baso % (Auto) 0.4 % Neut # (Auto) 2.78 (1.4-6.5) K/uL Lymph # (Auto) 1.15 L (1.2-3.4) K/uL [place] # (Auto) 0.42 (0.11-0.59) K/uL Eos # (Auto) 0.56 H (0-0.5) K/uL Baso # (Auto) 0.02 (0-0.2) K/uL Immature Gran # (Auto) 0.01 (0.00-0.02) K/uL Sodium 144 (136-145) mmol/L Potassium 3.8 (3.5-5.1) mmol/L Chloride 117 H (98-107) mmol/L Carbon Dioxide 24 (21-32) mmol/L Anion Gap 4.0 (3-11) BUN 4 L (7-18) mg/dl Creatinine 0.99 (0.6-1.4) mg/dl Est Cr Clr Drug Dosing 107.4 ml/min Est GFR ( Amer) 101.1 Est GFR (Non-Af Amer) 87.2 BUN/Creatinine Ratio 3.6 L (10-20) Glucose 129 H (70-99) mg/dl Calcium 8.7 (8.5-10.1) mg/dl Phosphorus 2.6 D (2.5-4.9) mg/dl Magnesium 2.1 (1.8-2.4) mg/dl Iron (35-175) mcg/dl TIBC (250-450) mcg/dl Transferrin (200-360) mg/dl Transferrin % Sat (20-50) % Ferritin (8-388) ng/ml Total Bilirubin 0.8 D (0.2-1) mg/dl Direct Bilirubin 0.3 H D (0-0.2) mg/dl AST 208 H (15-37) U/L ALT 666 H (12-78) U/L Alkaline Phosphatase 175 H (45-117) U/L Troponin I (0-0.045) ng/ml Total Protein 6.1 L (6.4-8.2) gm/dl Albumin 2.7 L (3.4-5.0) gm/dl Hmtcg-8-Vbsnkzqvkms Ceruloplasmin REX Screen Anti-Mitochondrial Ab Anti-Smooth Muscle Ab COVID-19 Eval Order COVID-19 PCR (Negative) Hepatitis A IgM Ab Hep Bs Antigen (Neg) Hep B Core IgM Ab Hepatitis C Antibody (Neg) 12/31/19 12/31/19 12/31/19 Range/Units 17:15 17:15 10:31 WBC (4.8-10.8) K/uL RBC (4.7-6.1) M/uL Hgb (14.0-18.0) g/dL Hct (42-52) % MCV (80-100) fL MCH (25-34) pg MCHC (32-36) g/dL RDW Std Deviation (36.4-46.3) fL RDW Coeff of Terrell (11.5-14.5) % Plt Count (130-400) K/uL MPV (7.4-10.4) fL Immature Gran % (Auto) % Neut % (Auto) % Lymph % (Auto) % [place] % (Auto) % Eos % (Auto) % Baso % (Auto) % Neut # (Auto) (1.4-6.5) K/uL Lymph # (Auto) (1.2-3.4) K/uL [place] # (Auto) (0.11-0.59) K/uL Eos # (Auto) (0-0.5) K/uL Baso # (Auto) (0-0.2) K/uL Immature Gran # (Auto) (0.00-0.02) K/uL Sodium (136-145) mmol/L Potassium (3.5-5.1) mmol/L Chloride (98-107) mmol/L Carbon Dioxide (21-32) mmol/L Anion Gap (3-11) BUN (7-18) mg/dl Creatinine (0.6-1.4) mg/dl Est Cr Clr Drug Dosing ml/min Est GFR ( Amer) Est GFR (Non-Af Amer) BUN/Creatinine Ratio (10-20) Glucose (70-99) mg/dl Calcium (8.5-10.1) mg/dl Phosphorus (2.5-4.9) mg/dl Magnesium (1.8-2.4) mg/dl Iron (35-175) mcg/dl TIBC (250-450) mcg/dl Transferrin (200-360) mg/dl Transferrin % Sat (20-50) % Ferritin (8-388) ng/ml Total Bilirubin (0.2-1) mg/dl Direct Bilirubin (0-0.2) mg/dl AST (15-37) U/L ALT (12-78) U/L Alkaline Phosphatase (45-117) U/L Troponin I (0-0.045) ng/ml Total Protein (6.4-8.2) gm/dl Albumin (3.4-5.0) gm/dl Mvjzd-8-Xxibziyxzqy Pending Ceruloplasmin Pending REX Screen Pending Anti-Mitochondrial Ab Pending Anti-Smooth Muscle Ab Pending COVID-19 Eval Order Covid19 Done at [facility] COVID-19 PCR NEGATIVE (Negative) Hepatitis A IgM Ab Pending Hep Bs Antigen (Neg) Hep B Core IgM Ab Pending Hepatitis C Antibody (Neg) 12/31/19 12/31/19 12/31/19 Range/Units 10:31 10:31 10:31 WBC (4.8-10.8) K/uL RBC (4.7-6.1) M/uL Hgb (14.0-18.0) g/dL Hct (42-52) % MCV (80-100) fL MCH (25-34) pg MCHC (32-36) g/dL RDW Std Deviation (36.4-46.3) fL RDW Coeff of Terrell (11.5-14.5) % Plt Count (130-400) K/uL MPV (7.4-10.4) fL Immature Gran % (Auto) % Neut % (Auto) % Lymph % (Auto) % [place] % (Auto) % Eos % (Auto) % Baso % (Auto) % Neut # (Auto) (1.4-6.5) K/uL Lymph # (Auto) (1.2-3.4) K/uL [place] # (Auto) (0.11-0.59) K/uL Eos # (Auto) (0-0.5) K/uL Baso # (Auto) (0-0.2) K/uL Immature Gran # (Auto) (0.00-0.02) K/uL Sodium (136-145) mmol/L Potassium (3.5-5.1) mmol/L Chloride (98-107) mmol/L Carbon Dioxide (21-32) mmol/L Anion Gap (3-11) BUN (7-18) mg/dl Creatinine (0.6-1.4) mg/dl Est Cr Clr Drug Dosing ml/min Est GFR ( Amer) Est GFR (Non-Af Amer) BUN/Creatinine Ratio (10-20) Glucose (70-99) mg/dl Calcium (8.5-10.1) mg/dl Phosphorus (2.5-4.9) mg/dl Magnesium (1.8-2.4) mg/dl Iron 73 (35-175) mcg/dl TIBC 242 L (250-450) mcg/dl Transferrin 201 (200-360) mg/dl Transferrin % Sat 26 (20-50) % Ferritin 318.6 (8-388) ng/ml Total Bilirubin (0.2-1) mg/dl Direct Bilirubin (0-0.2) mg/dl AST (15-37) U/L ALT (12-78) U/L Alkaline Phosphatase (45-117) U/L Troponin I < 0.015 (0-0.045) ng/ml Total Protein (6.4-8.2) gm/dl Albumin (3.4-5.0) gm/dl Orksr-2-Xnpglpvlikb Ceruloplasmin REX Screen Anti-Mitochondrial Ab Anti-Smooth Muscle Ab COVID-19 Eval Order COVID-19 PCR (Negative) Hepatitis A IgM Ab Hep Bs Antigen Neg (Neg) Hep B Core IgM Ab Hepatitis C Antibody Neg (Neg) Diagnostic Findings Telemetry reviewed: Sinus bradycardia with PVC's Echo reviewed from this admission: Normal LV systolic function. No wall motion abnormalities. No significant valvular heart disease Medications Administered Current Inpatient Medications Acetaminophen (Acetaminophen 325 Mg Tab) 650 mg PO Q4H PRN PRN Reason: Pain or Fever Stop: 01/29/20 22:29 Aspirin (Aspirin 81 Mg Ectab) 81 mg PO [facility] Stop: 01/30/20 08:59 Last Admin: 01/01/20 09:09 Dose: 81 mg Documented by: Atorvastatin Calcium (Atorvastatin 40 Mg Tab) 80 mg PO [facility] Stop: 01/30/20 08:59 Last Admin: 01/01/20 09:09 Dose: 80 mg Documented by: Potassium Chloride 10 meq/ (Dextrose/Sodium Chloride) 1,005 mls @ 125 mls/hr IV .Q8H3M [facility] Stop: 01/29/20 22:59 Last Admin: 01/01/20 08:04 Dose: 125 mls/hr Documented by: Piperacillin Sod/Tazobactam (Sod 3.375 gm/ Dextrose) 115 mls @ 28.75 mls/hr IV Q8H [facility]; Protocol Stop: 01/10/20 03:59 Last Infusion: 01/01/20 09:37 Dose: Infused Documented by: Lisinopril (Lisinopril 10 Mg Tab) 10 mg PO [facility] Stop: 01/30/20 08:59 Last Admin: 01/01/20 09:09 Dose: 10 mg Documented by: Metoprolol Tartrate (Metoprolol Tartrate 25 Mg Tab) 25 mg PO BID [facility] Stop: 01/29/20 22:29 Last Admin: 01/01/20 09:09 Dose: Not Given Documented by: Miscellaneous Information (Piperacill/Tazobac Consult Active) 1 ea N/A UD PRN PRN Reason: Consult Stop: 01/29/20 22:29 Morphine Sulfate (Morphine Sulfate 4 Mg/Ml 1 Ml Carp\\Vial) 3 mg IV Q3H PRN PRN Reason: Pain Stop: 01/13/20 22:29 Nitroglycerin (Nitroglycerin Sl 0.4 Mg/Tab Tab) 0.4 mg SL UD PRN PRN Reason: Chest Pain Stop: 01/29/20 22:29 Ondansetron HCl (Ondansetron Inj 2 Mg/Ml 2 Ml Vial) 4 mg IV Q6H PRN PRN Reason: Nausea Stop: 01/29/20 22:29 Ticagrelor (Ticagrelor 90 Mg Tab) 90 mg PO BID [facility] Stop: 01/29/20 22:29 Last Admin: 01/01/20 09:09 Dose: 90 mg Documented by: (1) HTN (hypertension) Hypertension type: unspecified Qualified Code(s): I10 - Essential (primary) hypertension (2) Cholelithiasis Biliary obstruction: with biliary obstruction Cholecystitis presence: without cholecystitis Cholelithiasis location: gallbladder and bile duct Qualified Co de(s): K80.71 - Calculus of gallbladder and bile duct without cholecystitis with obstruction
[2020-01-01] MEDS ORDERED: METOCLOPRAMIDE HCL INJ 5 MG/ML 2 ML VIAL IV PRN (16:56)
[2020-01-01] MEDS ORDERED: ONDANSETRON INJ 2 MG/ML 2 ML VIAL IV PRN (16:56)
[2020-01-01] MEDS ORDERED: PROMETHAZINE HCL 12.5 MG in SODIUM CHLORIDE 0.9% 50 ML IV PRN (16:56)
[2020-01-01] MEDS ORDERED: fentaNYL citrate 100 MCG/2 ML VIAL IV PRN (16:56)
[2020-01-01] MEDS ORDERED: ePHEDrine sulfate 50 MG/ML AMP IV PRN (16:56)
[2020-01-01] MEDS ORDERED: HYDROmorphone INJ 2 MG/ML SYR/VIAL IV PRN (16:56)
[2020-01-01] MEDS ORDERED: ATROPINE SULFATE 0.1 MG/ML 10ML SYR IV PRN (16:56)
[2020-01-01] MEDS ORDERED: LIDOCAINE HCL 2% 2 ML VIAL/AMP(20MG/ML) INFIL ONE ×2 (17:04→17:05)
[2020-01-01] MEDS ORDERED: PROPOFOL IV EMULSION 10 MG/ML 20 ML VIAL IV ONE ×2 (17:04→17:05)
[2020-01-01] MEDS ORDERED: MIDAZOLAM HCL 1 MG/ML 2ML VIAL ONE (17:17)
[2020-01-01] MEDS ORDERED: IOVERSOL 50ml IV ONE (17:34)
[2020-01-01] MEDS ORDERED: fentaNYL citrate 100 MCG/2 ML VIAL ONE ×2 (17:38→18:00)
--- NOTE | 2020-01-01 17:46 | Electrocardiogram Report ---
Test Reason : Blood Pressure : / mmHG Vent. Rate : 048 BPM Atrial Rate : 048 BPM P-R Int : 144 ms QRS Dur : 082 ms QT Int : 454 ms P-R-T Axes : 050 073 044 degrees QTc Int : 405 ms Sinus bradycardia Otherwise normal ECG When compared with ECG of 31-DEC-2019 07:37, No significant change was found Confirmed by Tony Molina ([id number]) on 01/01/2020 5:46:04 PM Referred By: REFERRED SELF Confirmed By:Rodri Molina
[2020-01-01] MEDS ORDERED: ONDANSETRON INJ 2 MG/ML 2 ML VIAL ONE (18:04)
--- NOTE | 2020-01-01 18:10 | Operative Report ---
Post Operative Report Pre & Post Diagnosis Operation Date: 01/01/20 11:25 Pre-Op Diagnosis: Choledocholelithiasis Post-Op Diagnosis: Choledocholelithiasis I identified the patient and participated in the time-out.: Yes Procedure Operation Date: 01/01/20 11:25 Actual Procedures p Upper Endoscopic Ultrasonography(Not Applicable) - Natacha Walls MD s Endoscopic Retrograde Cholangiopancreatogram(Not Applicable) - Natacha Walls MD Surgeon Natacha Walls MD Theatrical Agent None Estimated Blood Loss 0 Findings See Below (CBD stones removed and stent placed) Specimens None Description of Procedure EUS/ERCP I attest to the content of the Intraoperative Record and any orders documented therein. Any exceptions are noted below.
--- NOTE | 2020-01-01 19:02 | Fluoroscopy Report ---
FL ERCP biliary ductal CLINICAL HISTORY: ERCP/EUS COMPARISON STUDY: Right upper quadrant ultrasound December 30, 2019. MRCP December 31, 2019. FLUOROSCOPY TIME: 51 seconds. FLUOROSCOPIC IMAGES: 6 FINDINGS: Fluoroscopy was provided during ERCP. These images demonstrate dilation of the common bile duct with balloon sweep. Biliary stent was placed. Filling defects within the gallbladder representin g gallstones. IMPRESSION: Fluoroscopy provided during ERCP with placement of a biliary stent. ACT 112: Negative or not required by law. Electronically signed by: Floyd Carlton M.D. 01/01/2020 7:00 PM
--- NOTE | 2020-01-01 19:04 | Anesthesiology Progress Note ---
Date of Service January 01, 2020 Anesthesia Post Procedure Vital Signs Vital Signs: Temp Pulse Pulse Pulse Resp BP BP 01/01/20 19:00 36.7 C 55 L 20 145/91 H 01/01/20 18:50 58 L 18 140/86 01/01/20 18:40 54 L 12 139/87 01/01/20 18:30 54 L 14 138/86 01/01/20 18:22 36.1 C L 63 12 136/81 01/01/20 16:00 51 L 01/01/20 15:17 37 C 55 L 16 128/68 01/01/20 14:15 46 L 01/01/20 11:17 36.6 C 52 L 19 116/73 01/01/20 08:03 36.5 C 50 L 19 121/77 01/01/20 02:52 36.6 C 57 L 16 124/75 12/31/19 23:03 36.7 C 55 L 16 117/75 12/31/19 20:11 36.9 C 61 20 124/78 Pulse Ox 01/01/20 19:00 94 01/01/20 18:50 100 01/01/20 18:40 100 01/01/20 18:30 100 01/01/20 18:22 96 01/01/20 16:00 01/01/20 15:17 97 01/01/20 14:15 01/01/20 11:17 97 01/01/20 08:03 97 01/01/20 02:52 97 12/31/19 23:03 97 12/31/19 20:11 95 Pain Intensity Chest: Pain Intensity: 4 Transfer of Care Handoff Completed per policy Notes Mental Status: alert / awake / arousable Patient Amnestic to Procedure: Yes Nausea / Vomiting: adequately controlled Pain: adequately controlled Airway Patency, RR, SpO2: stable & adequate BP & HR: stable & adequate Hydration State: stable & adequate Anesthetic Complications: no major complications apparent
[2020-01-01] MEDS ORDERED: COUGH DROP (SUGAR FREE) LOZ 24 LOZ/1 BOX BUCCAL ONE (19:21)
--- NOTE | 2020-01-01 21:52 | Gastroenterology Progress Note ---
Date of Service January 01, 2020 Assessment & Plan Admission and Anticipated Discharge Date Admission Date: December 30, 2019 Subjective Patient underwent EUS/ERCP. tolerated well, found with CBD stones, these were removed, CBD and PD stents placed. Recommend: Repeat ERCP in 3 months to exchange the stent. Surgery for Lap hermilo once cleared from Cardiology to hold antiplatelets. Results & Data ([facility]) Vital Signs (Past 12 Hours) Vital Signs Temp Pulse Pulse Pulse Resp BP BP 01/01/20 21:15 36.8 C 63 20 142/87 H 01/01/20 20:24 78 01/01/20 20:15 37.1 C 59 L 19 168/97 H 01/01/20 20:03 36.8 C 66 21 158/108 H 01/01/20 19:45 36.7 C 66 16 148/97 H 01/01/20 19:15 36.9 C 58 L 16 138/92 01/01/20 19:00 36.7 C 55 L 20 145/91 H 01/01/20 18:50 58 L 18 140/86 01/01/20 18:40 54 L 12 139/87 01/01/20 18:30 54 L 14 138/86 01/01/20 18:22 36.1 C L 63 12 136/81 01/01/20 16:00 51 L 01/01/20 15:17 37 C 55 L 16 128/68 01/01/20 14:15 46 L 01/01/20 11:17 36.6 C 52 L 19 116/73 Pulse Ox 01/01/20 21:15 95 01/01/20 20:24 01/01/20 20:15 94 01/01/20 20:03 93 01/01/20 19:45 92 01/01/20 19:15 93 01/01/20 19:00 94 01/01/20 18:50 100 01/01/20 18:40 100 01/01/20 18:30 100 01/01/20 18:22 96 01/01/20 16:00 01/01/20 15:17 97 01/01/20 14:15 01/01/20 11:17 97
[2020-01-02] MEDS: PIPERACILLIN/TAZOBACTAM 3.375 GM in DEXTROSE 5% 100 ML IV SCH ×2 (03:50→12:22)
[2020-01-02] MEDS: POTASSIUM CHLORIDE 10 MEQ in D5W AND NSS 1,000 ML IV SCH ×2 (03:50→07:45)
--- NOTE | 2020-01-02 07:09 | GI REPORT ---
Patient Name: Julien Orta Procedure Date: 01/01/2020 5:18 PM Date of : 1965 Admit Type: Inpatient Age: 54 Gender: Male Attending MD: Natacha Walls MD Procedure: Upper EUS Providers: Natacha Walls MD Referring MD: Diego Coulter Md Indications: Elevated liver enzymes, Suspected choledocholithiasis Medicines: Propofol per Anesthesia Complications: No immediate complications. Estimated Blood Loss: Estimated blood loss: none. Procedure: Pre-Anesthesia Assessment: - Prior to the procedure, a History and Physical was performed, and patient medications, allergies and sensitivities were reviewed. The patient's tolerance of previous anesthesia was reviewed. - The risks and benefits of the procedure and the sedation options and risks were discussed with the patient. All questions were answered and informed consent was obtained. - Patient identification and proposed procedure were verified prior to the procedure by the physician and the nurse. The procedure was verified in the procedure room. - Pre-procedure physical examination revealed no contraindications to sedation. After obtaining informed consent, the endoscope was passed under direct vision. Throughout the procedure, the patient's blood pressure, pulse, and oxygen saturations were monitored continuously. The Endosonoscope was introduced through the mouth, and advanced to the second part of duodenum. The upper EUS was accomplished without difficulty. The patient tolerated the procedure well. Findings: ENDOSONOGRAPHIC FINDING: : There was no sign of significant endosonographic abnormality in the ampulla. No masses were identified. One stone was visualized endosonographically in the common bile duct. The stone was round. It was hyperechoic and characterized by shadowing. The diameter of the common bile duct was 4 mm. Multiple stones were visualized endosonographically in the gallbladder. The stones were round. They were hyperechoic and characterized by shadowing. There was no sign of significant endosonographic abnormality in the visualized portion of the liver. Homogeneous parenchyma was identified. There was no sign of significant endosonographic abnormality in the entire pancreas. The pancreatic duct measured up to 2.5 mm in diameter. There was no sign of significant endosonographic abnormality in the visualized portion of the left adrenal gland. There was no sign of significant endosonographic abnormality involving the celiac trunk. Impression: - There was no sign of significant pathology in the ampulla. - One stone was visualized endosonographically in a nondilated common bile duct. - Multiple stones were visualized endosonographically in the gallbladder. - There was no evidence of significant pathology in the visualized portion of the liver. - There was no sign of significant pathology in the entire pancreas. - Endosonographic images of the left adrenal gland were unremarkable. - The celiac trunk was endosonographically normal. - No specimens collected. Recommendation: - Perform an ERCP today. Natacha Walls MD 01/02/2020 7:08:45 AM This report has been signed electronically. Note Initiated On: 01/01/2020 5:18 PM Number of Addenda: 0 I attest to the content of the Intraoperative Record and orders documented therein, exceptions below {[id number]}
--- NOTE | 2020-01-02 07:15 | GI REPORT ---
Patient Name: Julien Orta Procedure Date: 01/01/2020 5:19 PM Date of : 1965 Admit Type: Inpatient Age: 54 Gender: Male Attending MD: Natacha Walls MD Procedure: ERCP Providers: Natacha Walls MD Referring MD: Diego Coulter Md Indications: For therapy of bile duct stone(s), Elevated liver enzymes Medicines: General Anesthesia Complications: No immediate complications. Estimated Blood Loss: Estimated blood loss: none. Procedure: Pre-Anesthesia Assessment: - Prior to the procedure, a History and Physical was performed, and patient medications, allergies and sensitivities were reviewed. The patient's tolerance of previous anesthesia was reviewed. - The risks and benefits of the procedure and the sedation options and risks were discussed with the patient. All questions were answered and informed consent was obtained. - Patient identification and proposed procedure were verified prior to the procedure by the physician and the nurse. The procedure was verified in the procedure room. - Pre-procedure physical examination revealed no contraindications to sedation. After obtaining informed consent, the scope was passed under direct vision. Throughout the procedure, the patient's blood pressure, pulse, and oxygen saturations were monitored continuously. The scope was introduced through the mouth, and advanced to the duodenum and used to inject contrast into the bile duct. The ERCP was accomplished without difficulty. The patient tolerated the procedure well. Findings: The c software developer film was normal. The esophagus was successfully intubated under direct vision. The scope was advanced to a normal major papilla in the descending duodenum without detailed examination of the pharynx, larynx and associated structures, and upper GI tract. The upper GI tract was grossly normal. The ventral pancreatic duct was inadvertently cannulated with the short-nosed traction sphincterotome and guidewire. A 0.035 inch straight standard wire was passed into the biliary tree. The Fusion OMNI sphincterotome was passed over the guidewire and the bile duct was then deeply cannulated. Contrast was injected. I personally interpreted the bile duct images. Ductal flow of contrast was adequate. Image quality was adequate. Contrast extended to the main bile duct. Opacification of the main bile duct was successful. The maximum diameter of the ducts was 6 mm. The lower third of the main bile duct contained one stone. A 2 mm biliary sphincterotomy was made with a monofilament traction (standard) sphincterotome using ERBE electrocautery. There was no post-sphincterotomy bleeding. Dilation of the common bile duct with a 4 mm balloon dilator was successful. The biliary tree was swept with an 11.5 mm balloon starting at the bifurcation. Two stones were removed. No stones remained. One 5 Fr by 9 cm plastic pancreatic stent with a single external flap and no internal flaps was placed into the ventral pancreatic duct. Clear fluid flowed through the stent. The stent was in good position. One 10 Fr by 8 cm plastic biliary stent with a single external flap and a single internal flap was placed into the common bile duct. Bile flowed through the stent. The stent was in good position. Impression: - Choledocholithiasis was found. Complete removal was accomplished by short biliary sphincterotomy with balloon sphincteroplasty and balloon extraction. - One plastic pancreatic stent was placed into the ventral pancreatic duct to decrease the risk of post ERCP pancreatitis. - One plastic biliary stent was placed into the common bile duct. Recommendation: - [facility]. - Advance diet as tolerated. - Repeat ERCP in 3 months to exchange stent. - Obtain KUB in 3 weeks to check migration of the PD stent, if not then will need EGD for removal. - Surgery for Lap hermilo. I will exchange the stent till patient can be off antiplatelet for few days from cardiology standpoint and gets cholecystectomy. - Recall GI if needed. Natacha Walls MD 01/02/2020 7:15:26 AM This report has been signed electronically. Note Initiated On: 01/01/2020 5:19 PM Number of Addenda: 0 I attest to the content of the Intraoperative Record and orders documented therein, exceptions below {[id number]}
[2020-01-02 07:32] LABS: Hemoglobin 13.8 g/dL (14.0-18.0); Mean Corpuscular Hemoglobin 29.2 pg (25-34); Mean Corpuscular Hgb Conc 32.9 g/dL (32-36); Mean Corpuscular Volume 88.8 fL (80-100); Mean Platelet Volume 12.4 fL (7.4-10.4); Platelet Count 192 K/uL (130-400); RDW Coefficient of Variation 13.8 % (11.5-14.5); RDW Standard Deviation 45.3 fL (36.4-46.3); Red Blood Count 4.73 M/uL (4.7-6.1)
[2020-01-02 07:58] LABS: Albumin Level 2.8 gm/dl (3.4-5.0); BUN Creatinine Ratio 2.6 (10-20); Calcium 8.3 mg/dl (8.5-10.1); Creatinine Clr Calc Pharmacy 95.5 ml/min; Est GFR (African American) 87.1; Est GFR (Non-African American) 75.1; Magnesium 2.1 mg/dl (1.8-2.4); Potassium 3.6 mmol/L (3.5-5.1)
[2020-01-02] MEDS: TICAGRELOR 90 MG TAB PO SCH (08:03)
[2020-01-02] MEDS: ASPIRIN 81 MG ECTAB PO SCH (08:03)
[2020-01-02] MEDS: ATORVASTATIN 40 MG TAB PO SCH (08:04)
[2020-01-02] MEDS: METOPROLOL TARTRATE 25 MG TAB PO SCH (08:04)
[2020-01-02] MEDS: lisinopriL 10 MG TAB PO SCH (08:04)
[2020-01-02 08:05] LABS: Albumin Globulin Ratio 0.8 (0.9-2); Bilirubin,Total 0.8 mg/dl (0.2-1); Globulin 3.4 gm/dl (2.5-4.0); Phosphorus 3.3 mg/dl (2.5-4.9); Total Protein 6.2 gm/dl (6.4-8.2)
--- NOTE | 2020-01-02 10:01 | Gastroenterology Progress Note ---
Date of Service January 02, 2020 Assessment & Plan (1) Elevated LFTs: (2) Abdominal pain: (3) Cholelithiasis: Pt is a 54 y/o male who presented w upper abd pain radiating to back, nausea, noted to have elevated LFTs, cholelithiasis w/o over CBD dilation on RUQ u/s. Family hx + for unspecified liver dz as well. MRCP obtained , no obvious filling defect, or ductal dilation. Though w symptoms and elevated LFTs, cholelithiasis findings, suspect he may have retained biliary stones. EUS/ERCP performed 12/31- Choledocholithiasis was found. Complete removal was accomplished by short biliary sphincterotomy with balloon sphincteroplasty and balloon extraction. Once plastic pancreatic stent and one plastic biliary stent was placed. LFTs trending down - KUB in 3 weeks to check PD migration, if not will need EGD removal - Repeat ERCP 3 months for stent exchange. - Timing of lap hermilo per Surgery after his antiplatelet can be held from Cardiology standpoint. - Pls recall GI prn Admission and Anticipated Discharge Date Admission Date: December 30, 2019 Supervising Physician Co-Signing Physician Notes I performed a history and physical examination of the patient today, including specifically on physical exam - soft abdomen. I have discussed the patient's management with the advanced practitioner. Please refer to the nurse practiti ben's note for the documented findings and plan of care. LFTs improved. Repeat ERCP as OP in 3 months. Recall Gi if needed. Subjective Pt reports mild upper abd discomfort, no n/v, CP, SOB. Loose stools this AM Review of Systems Review of Systems: All systems reviewed & are unremarkable except as noted in HPI & below Physical Exam Constitutional: WD/WN, vitals as above well groomed, cooperative and comfortable Eyes: PERRL, conjunctivae normal, anicteric sclerae ENMT: external ear and nose normal, oropharynx normal Respiratory: normal respiratory effort, lungs clear to auscultation Cardiovascular: RRR, no murmur, no edema Gastrointestinal (Abdomen): normal bowel sounds, soft, nontender, no hepatosplenomegaly Skin: no rashes, warm and dry no jaundice Psychiatric: A+Ox3, euthymic affect Lymphatic: no lymphedema Results & Data ([facility]) Vital Signs (Past 12 Hours) Vital Signs Temp Pulse Pulse Resp BP Pulse Ox 01/02/20 07:42 36.3 C L 60 16 133/80 95 01/02/20 03:04 36.5 C 58 L 19 134/82 93 01/01/20 23:32 36.5 C 68 16 141/84 H 94 01/01/20 23:30 55 L 01/01/20 22:15 36.7 C 66 16 139/79 93 (1) Cholelithiasis Biliary obstruction: with biliary obstruction Cholecystitis presence: without cholecystitis Cholelithiasis location: gallbladder and bile duct Qualified Code(s): K80.71 - Calculus of gallbladder and bile duct without cholecystitis with obstruction
--- NOTE | 2020-01-02 10:16 | Cardiology Progress Note ---
Date of Service January 02, 2020 Assessment & Plan (1) Cholelithiasis: (2) Elevated LFTs: (3) Status post insertion of drug-eluting stent into right coronary artery for coronary artery disease: (4) HTN (hypertension): Patient presenting with epigastric pain/abdominal pain, with findings of elevated LFT's consistent with possible choledocholithiasis. Tolerated ERCP with stent placement and stones removed. tolerated procedure. Will likely need repeat ERCP in 3 months for stent removal vs replacement. Once able to hold antiplatelet therapy will need lap hermilo in the future. Patient had NSTEMI in October, 7 weeks ago, receiving 1 ROXANA to the RCA on 11/12/19 in setting of acute occlusion. He remains on dual antiplatelet therapy with ASA and Brilinta and may not discontinue therapy at this time. Echo this admission reveals normal LV systolic function, no wall motion abnormalities. Continue current cardiovascular meds on discharge. Case discussed with Dr. Lott. Admission and Anticipated Discharge Date Admission Date: December 30, 2019 Supervising Physician Co-Signing Physician Notes I have discussed the case with Ms. Ang, reviewed the medical record and examined the patient. I agree with the plan as outlined. He does have a follow-up visit with his primary compliance advisor Dr. Zapata in early January which she should keep. Subjective Patient resting in bed comfortably. ERCP yesterday receiving 2 biliary stents and stones removed. Tolerated procedure. Noted mild chest discomfort post procedure but resolved quickly. Patient attributed his symptoms to his esophageal and throat "irritation". No radiation of discomfort, no SOB. Currently chest pain free. No complaints other than mild diffuse abdominal discomfort. GI advancing diet Review of Systems Review of Systems: All systems reviewed & are unremarkable except as noted in HPI & below Physical Exam Constitutional: WD/WN, vitals as above well nourished; no acute distress Neck: normal visual inspection Respiratory: normal respiratory effort, lungs clear to auscultation Cardiovascular: RRR, no murmur, no edema Gastrointestinal (Abdomen): Percussion/Palpation: + abdomen tender (mild dif fuse tenderness, particularly epigastric region) Musculoskeletal: no cyanosis or clubbing, extremities motor strength 5/5 Neurologic: PERRL, EOMI, accommodation nl, no face palsy, no dysarthria Psychiatric: A+Ox3, euthymic affect Results & Data ([facility]) Vital Signs (Past 12 Hours) Vital Signs Temp Pulse Pulse Resp BP Pulse Ox 01/02/20 07:42 36.3 C L 60 16 133/80 95 01/02/20 03:04 36.5 C 58 L 19 134/82 93 01/01/20 23:32 36.5 C 68 16 141/84 H 94 01/01/20 23:30 55 L 01/01/20 22:15 36.7 C 66 16 139/79 93 Laboratory Results 01/02/20 01/02/20 Range/Units 06:56 06:56 WBC 5.30 (4.8-10.8) K/uL RBC 4.73 (4.7-6.1) M/uL Hgb 13.8 L (14.0-18.0) g/dL Hct 42.0 (42-52) % MCV 88.8 (80-100) fL MCH 29.2 (25-34) pg MCHC 32.9 (32-36) g/dL RDW Std Deviation 45.3 (36.4-46.3) fL RDW Coeff of Terrell 13.8 (11.5-14.5) % Plt Count 192 (130-400) K/uL MPV 12.4 H (7.4-10.4) fL Sodium 145 (136-145) mmol/L Potassium 3.6 (3.5-5.1) mmol/L Chloride 114 H (98-107) mmol/L Carbon Dioxide 25 (21-32) mmol/L Anion Gap 6.0 (3-11) BUN 3 L (7-18) mg/dl Creatinine 1.12 (0.6-1.4) mg/dl Est Cr Clr Drug Dosing 95.5 ml/min Est GFR ( Amer) 87.1 Est GFR (Non-Af Amer) 75.1 BUN/Creatinine Ratio 2.6 L (10-20) Glucose 139 H (70-99) mg/dl Calcium 8.3 L (8.5-10.1) mg/dl Phosphorus 3.3 (2.5-4.9) mg/dl Magnesium 2.1 (1.8-2.4) mg/dl Total Bilirubin 0.8 (0.2-1) mg/dl AST 163 H (15-37) U/L ALT 582 H (12-78) U/L Alkaline Phosphatase 211 H (45-117) U/L Total Protein 6.2 L (6.4-8.2) gm/dl Albumin 2.8 L (3.4-5.0) gm/dl Globulin 3.4 (2.5-4.0) gm/dl Albumin/Globulin Ratio 0.8 L (0.9-2) Diagnostic Findings Telemetry reviewed: NSR, sinus bradycardia. No arrhythmias Medications Administered Current Inpatient Medications Acetaminophen (Acetaminophen 325 Mg Tab) 650 mg PO Q4H PRN PRN Reason: Pain or Fever Stop: 01/29/20 22:29 Aspirin (Aspirin 81 Mg Ectab) 81 mg PO [facility] Stop: 01/30/20 08:59 Last Admin: 01/02/20 08:03 Dose: 81 mg Documented by: Atorvastatin Calcium (Atorvastatin 40 Mg Tab) 80 mg PO [facility] Stop: 01/30/20 08:59 Last Admin: 01/02/20 08:04 Dose: 80 mg Documented by: Potassium Chloride 10 meq/ (Dextrose/Sodium Chloride) 1,005 mls @ 125 mls/hr IV .Q8H3M [facility] Stop: 01/29/20 22:59 Last Admin: 01/02/20 07:45 Dose: Not Given Documented by: Piperacillin Sod/Tazobactam (Sod 3.375 gm/ Dextrose) 115 mls @ 28.75 mls/hr IV Q8H [facility]; Protocol Stop: 01/10/20 03:59 Last Infusion: 01/02/20 07:45 Dose: Infused Documented by: Lisinopril (Lisinopril 10 Mg Tab) 10 mg PO [facility] Stop: 01/30/20 08:59 Last Admin: 01/02/20 08:04 Dose: 10 mg Documented by: Metoprolol Tartrate (Metoprolol Tartrate 25 Mg Tab) 25 mg PO BID [facility] Stop: 01/29/20 22:29 Last Admin: 01/02/20 08:04 Dose: 25 mg Documented by: Miscellaneous Information (Piperacill/Tazobac Consult Active) 1 ea N/A UD PRN PRN Reason: Consult Stop: 01/29/20 22:29 Morphine Sulfate (Morphine Sulfate 4 Mg/Ml 1 Ml Carp\\Vial) 3 mg IV Q3H PRN PRN Reason: Pain Stop: 01/13/20 22:29 Last Admin: 01/01/20 19:24 Dose: 3 mg Documented by: Nitroglycerin (Nitroglycerin Sl 0.4 Mg/Tab Tab) 0.4 mg SL UD PRN PRN Reason: Chest Pain Stop: 01/29/20 22:29 Ondansetron HCl (Ondansetron Inj 2 Mg/Ml 2 Ml Vial) 4 mg IV Q6H PRN PRN Reason: Nausea Stop: 01/29/20 22:29 Ticagrelor (Ticagrelor 90 Mg Tab) 90 mg PO BID [facility] Stop: 01/29/20 22:29 Last Admin: 01/02/20 08:03 Dose: 90 mg Documented by: (1) HTN (hypertension) Hypertension type: unspecified Qualified Code(s): I10 - Essential (primary) hypertension (2) Cholelithiasis Biliary obstruction: with biliary obstruction Cholecystitis presence: without cholecystitis Cholelithiasis location: gallbladder and bile duct Qualified Code(s): K80.71 - Calculus of gallbladder and bile duct without cholecystitis with obstruction
--- NOTE | 2020-01-02 13:29 | Surgery Progress Note ---
Date of Service January 02, 2020 Assessment & Plan (1) Choledocholithiasis: Choledocholithiasis and cholelithiasis status post ERCP with stent placement. Per cardiology, needs to remain on dual antiplatelet therapy for at least 6 months following stent placement prior to being able to come off for surgical intervention. Hopefully the stent will bridge him through that time. No surgical intervention indicated in light of continuing dual antiplatelet therapy at this time Follow-up with GI for stent exchange at 3 months Follow-up with general surgery in the future plan for cholecystectomy once he is able to come off antiplatelet therapy for a brief period of time Avoid fatty or greasy foods Educated on signs symptoms of cholecystitis and told report to the emergency department these develop General surgery will sign off, please call with questions or concerns (2) Status post insertion of drug-eluting stent into right coronary artery for coronary artery disease: (3) Cholelithiasis: (4) HTN (hypertension): Admission and Anticipated Discharge Date Admission Date: December 30, 2019 Subjective 54-year-old male with recent cardiac stent on dual antiplatelet therapy admitted for cholecystitis and choledocholithiasis. Underwent ERCP yesterday with stent placement and multiple stones removed. He is feeling better today still little tenderness and pain in his right upper quadrant with eating. He is tolerating regular diet though. Physical Exam Constitutional: WD/WN, vitals as above Gastrointestinal (Abdomen): Percussion/Palpation: + abdomen tender (Mild tenderness to palpation in the right upper quadrant) and abdomen soft; no guarding and abdomen not rigid Results & Data ([facility]) Vital Signs (Past 12 Hours) Vital Signs Temp Pulse Pulse Resp BP Pulse Ox 01/02/20 11:58 36.6 C 52 L 20 147/83 H 96 01/02/20 07:42 36.3 C L 60 16 133/80 95 01/02/20 03:04 36.5 C 58 L 19 134/82 93 PG Care Time/CCT Total # of Minutes Spent Total Time Spent with Patient: Total time spent is greater than 50% in coordination of care (as documented) at patient's floor/unit and/or counseling patient: Coding Level of Care Code 68847 Inpt Consult Level 3 Diagnoses Choledocholithiasis K80.50 Status post insertion of drug-eluting stent into right coronary artery for coronary artery disease Z95.5 Cholelithiasis K80.71 Biliary obstruction: with biliary obstruction Cholecystitis presence: without cholecystitis Cholelithiasis location: gallbladder and bile duct HTN (hypertension) I10 Hypertension type: unspecified (1) Cholelithiasis Biliary obstruction: with biliary obstruction Cholecystitis presence: without cholecystitis Cholelithiasis location: gallbladder and bile duct Qualified Code(s): K80.71 - Calculus of gallbladder and bile duct without cholecystitis with obstruction (2) HTN (hypertension) Hypertension type: unspecified Qualified Code(s): I10 - Essential (primary) hypertension
--- NOTE | 2020-01-02 13:54 | Hospitalist Progress Note ---
Date of Service January 02, 2020 Assessment & Plan (1) Abdominal pain: (2) Elevated LFTs: (3) Choledocholithiasis: (4) Cholelithiasis: 54 y/o male presents with abdominal pain radiating to the chest. Abdominal pain in the upper abdomen and lower chest, radiating to the left side of chest. He recently had a non-ST elevation myocardial infarction with a stent to the right coronary artery. His initial troponin negative. He had some EKG changes with T-wave inversions in inferior leads on admission. Needed to rule out acute coronary syndrome because of recent history and ekg changes. Followed serial enzymes, echocardiogram ordered. Gallbladder ultrasound showed gallstones and he also had some right upper quadrant abdominal tenderness, could be biliary colic versus cholecystitis. Empirically started on IV Zosyn on admission. Repeated LFTs a.m. Consult surgery and GI in a.m. ERCP /MRCP as per GI. AST, ALT elevated in the morning, GI recommends MRCP. MRCP unremarkable, plan for ERCP/ EUS by GI Per cardiology, given recent stent to RCA, patient has to remain on dual antiplatelet therapy during any procedure. Patient is currently s/p EUS/ERCP w/ GI (01/01/20). CBD stones removed, CBD and PD stents placed. Recommend: Repeat ERCP in 3 months to exchange the stent. Surgery for Lap hermilo once cleared from Cardiology to hold antiplatelets. (5) Status post insertion of drug-eluting stent into right coronary artery for coronary artery disease: History of coronary artery disease, recently in October he had RCA stent. He recently had a non-ST elevation myocardial infarction with a stent to the right coronary artery. He had some EKG changes with T-wave inversions in inferior leads on admission. Continue his home medication of aspirin, statin, Brilinta, lisinopril, metoprolol. Troponin x3 negative. Cardiology consulted. Echocardiogram obtained, shows normal LV function, EF 55 to 60%, LV normal in size, left ventricular wall motion is normal, right ventricular systolic function is normal. Given his recent stent to RCA, patient has to remain on dual antiplatelet therapy (ASA and Brilinta ) during any GI work-up. Hyperlipidemia. Continue statin. Hypertension. Continue lisinopril, metoprolol. Will monitor the blood pressure. DVT prophylaxis, sequential compression devices. Admission and Anticipated Discharge Date Admission Date: December 30, 2019 Subjective Pt underwent ERCP yesterday with stents placement and multiple stones removed. He is feeling well, denies any fevers, chills, chest pain, shortness of breath, still has little tenderness in his right upper quadrant with eating. He is tolerating diet though. Review of Systems Review of Systems: All systems reviewed & are unremarkable except as noted in HPI & below Constitutional: no fever and no chills Respiratory: no cough and no dyspnea Cardiovascular: no chest pain and no palpitations Gastrointestinal: + abdominal pain (mild in right upper quadrant/epigastric); no nausea and no vomiting Physical Exam Physical Exam: GENERAL: The patient is of moderate build, not in acute distress. HEENT: Pupils equal, round, and reactive to light. Oral mucosa moist. NECK: No JVD, no neck masses. CARDIOVASCULAR: S1, S2 heard, regular rate and rhythm, no murmur, no gallop. RESPIRATORY SYSTEM: Normal AP diameter. No accessory muscle use. No wheezing, no crackles. ABDOMEN: Soft, bowel sounds present. epigastric tenderness (mild) present. No guarding, no rigidity, no distention. NEURO: Alert and oriented x3, no facial asymmetry, speech fluent, moves all 4 extremities spontaneously, cranial nerves II-XII grossly intact, nonfocal. EXTREMITIES: No edema, no erythema. SKIN: Warm, dry, no rashes or lesions noted. Results & Data Results & Data ([facility]) Vital Signs (Past 12 Hours) Vital Signs Temp Pulse Pulse Resp BP Pulse Ox 01/02/20 11:58 36.6 C 52 L 20 147/83 H 96 01/02/20 07:42 36.3 C L 60 16 133/80 95 01/02/20 03:04 36.5 C 58 L 19 134/82 93 Laboratory Results 01/02/20 01/02/20 Range/Units 06:56 06:56 WBC 5.30 (4.8-10.8) K/uL RBC 4.73 (4.7-6.1) M/uL Hgb 13.8 L (14.0-18.0) g/dL Hct 42.0 (42-52) % MCV 88.8 (80-100) fL MCH 29.2 (25-34) pg MCHC 32.9 (32-36) g/dL RDW Std Deviation 45.3 (36.4-46.3) fL RDW Coeff of Terrell 13.8 (11.5-14.5) % Plt Count 192 (130-400) K/uL MPV 12.4 H (7.4-10.4) fL Sodium 145 (136-145) mmol/L Potassium 3.6 (3.5-5.1) mmol/L Chloride 114 H (98-107) mmol/L Carbon Dioxide 25 (21-32) mmol/L Anion Gap 6.0 (3-11) BUN 3 L (7-18) mg/dl Creatinine 1.12 (0.6-1.4) mg/dl Est Cr Clr Drug Dosing 95.5 ml/min Est GFR ( Amer) 87.1 Est GFR (Non-Af Amer) 75.1 BUN/Creatinine Ratio 2.6 L (10-20) Glucose 139 H (70-99) mg/dl Calcium 8.3 L (8.5-10.1) mg/dl Phosphorus 3.3 (2.5-4.9) mg/dl Magnesium 2.1 (1.8-2.4) mg/dl Total Bilirubin 0.8 (0.2-1) mg/dl AST 163 H (15-37) U/L ALT 582 H (12-78) U/L Alkaline Phosphatase 211 H (45-117) U/L Total Protein 6.2 L (6.4-8.2) gm/dl Albumin 2.8 L (3.4-5.0) gm/dl Globulin 3.4 (2.5-4.0) gm/dl Albumin/Globulin Ratio 0.8 L (0.9-2) Medications Administered Current Inpatient Medications Acetaminophen (Acetaminophen 325 Mg Tab) 650 mg PO Q4H PRN PRN Reason: Pain or Fever Stop: 01/29/20 22:29 Aspirin (Aspirin 81 Mg Ectab) 81 mg PO [facility] Stop: 01/30/20 08:59 Last Admin: 01/02/20 08:03 Dose: 81 mg Documented by: Atorvastatin Calcium (Atorvastatin 40 Mg Tab) 80 mg PO [facility] Stop: 01/30/20 08:59 Last Admin: 01/02/20 08:04 Dose: 80 mg Documented by: Piperacillin Sod/Tazobactam (Sod 3.375 gm/ Dextrose) 115 mls @ 28.75 mls/hr IV Q8H [facility]; Protocol Stop: 01/10/20 03:59 Last Admin: 01/02/20 12:22 Dose: 30 mls/hr Documented by: Lisinopril (Lisinopril 10 Mg Tab) 10 mg PO QAM [facility] Stop: 01/30/20 08:59 Last Admin: 01/02/20 08:04 Dose: 10 mg Documented by: Metoprolol Tartrate (Metoprolol Tartrate 25 Mg Tab) 25 mg PO BID [facility] Stop: 01/29/20 22:29 Last Admin: 01/02/20 08:04 Dose: 25 mg Documented by: Miscellaneous Information (Piperacill/Tazobac Consult Active) 1 ea N/A UD PRN PRN Reason: Consult Stop: 01/29/20 22:29 Morphine Sulfate (Morphine Sulfate 4 Mg/Ml 1 Ml Carp\Vial) 3 mg IV Q3H PRN PRN Reason: Pain Stop: 01/13/20 22:29 Last Admin: 01/01/20 19:24 Dose: 3 mg Documented by: Nitroglycerin (Nitroglycerin Sl 0.4 Mg/Tab Tab) 0.4 mg SL UD PRN PRN Reason: Chest Pain Stop: 01/29/20 22:29 Ondansetron HCl (Ondansetron Inj 2 Mg/Ml 2 Ml Vial) 4 mg IV Q6H PRN PRN Reason: Nausea Stop: 01/29/20 22:29 Ticagrelor (Ticagrelor 90 Mg Tab) 90 mg PO BID [facility] Stop: 01/29/20 22:29 Last Admin: 01/02/20 08:03 Dose: 90 mg Documented by: (1) Cholelithiasis Biliary obstruction: with biliary obstruction Cholecystitis presence: without cholecystitis Cholelithiasis location: gallbladder and bile duct Qualified Code(s): K80.71 - Calculus of gallbladder and bile duct without cholecystitis with obstruction
--- NOTE | 2020-01-02 14:20 | Discharge Summary ---
Date of Service January 02, 2020 Admission HPI Per Admitting Provider A 54-year-old male with past medical history significant for hypertension, hyperlipidemia, diverticulosis, history of recent non-ST elevated LA, status post stent to RCA on 11/12/2019. The patient comes with upper abdomen and lower chest pain starting today afternoon about 5/10 to 6/10 in severity. Pain is more in the upper abdomen, band-like and radiating to the left of the chest. It is a constant pain. No nausea, no shortness of breath, no sweating. No fever, no chills, no cough. Normal bowel and bladder movements. No rash. Otherwise, he climbed steps today without any chest pain. No cough. Appetite is okay. Swallows ok, no dysphagia. No earache, no runny nose, no sore throat. Currently resting comfortably and hemodynamically stable. Blood pressure somewhat on the higher side. No leukocytosis seen. LFTs are slightly elevated and gallbladder ultrasound shows cholelithiasis without sonographic evidence of acute cholecystitis. EKG shows some T-wave inversions in inferior leads. Admission Exam Per Admitting Provider GENERAL: The patient is of moderate build, not in acute distress. VITAL SIGNS: Temperature 37.2, pulse 65, respiratory rate 22, blood pressure 161/98, oxygen 99% on room air. HEENT: Pupils equal, round, and reactive to light. Oral mucosa moist. NECK: No JVD, no neck masses. CARDIOVASCULAR: S1, S2 heard, regular rate and rhythm, no murmur, no gallop. RESPIRATORY SYSTEM: Normal AP diameter. No accessory muscle use. No wheezing, no crackles. ABDOMEN: Soft, bowel sounds present. Right upper quadrant tenderness present. No guarding, no rigidity, no distention. CENTRAL NERVOUS SYSTEM: Cranial nerves II-XII grossly intact, nonfocal. EXTREMITIES: No edema, no erythema. Principal Diagnosis Choledocholithiasis, cholelithiasis, elevated LFTs Discharge Exam GENERAL: The patient is of moderate build, not in acute distress. HEENT: Pupils equal, round, and reactive to light. Oral mucosa moist. NECK: No JVD, no neck masses. CARDIOVASCULAR: S1, S2 heard, regular rate and rhythm, no murmur, no gallop. RESPIRATORY SYSTEM: Normal AP diameter. No accessory muscle use. No wheezing, no crackles. ABDOMEN: Soft, bowel sounds present. epigastric tenderness (mild) present. No guarding, no rigidity, no distention. NEURO: Alert and oriented x3, no facial asymmetry, speech fluent, moves all 4 extremities spontaneously, cranial nerves II-XII grossly intact, nonfocal. EXTREMITIES: No edema, no erythema. SKIN: Warm, dry, no rashes or lesions noted. Discharge Data Allergies Allergy/AdvReac Type Severity Reaction Status Date / Time No Known Allergies Allergy Verified 12/30/19 18:54 Consultations 12/30/19 18:48 ED Decision to Admit Stat 12/30/19 22:30 Consult Case Management - Discharge Planning Routine Consult General Surgery Routine 12/31/19 08:00 Consult Cardiology Routine Consult Gastroenterology Routine 12/31/19 10:09 Consult Anesthesiology Routine Procedures Performed Operation Date: 01/01/20 11:25 Actual Procedures p Upper Endoscopic Ultrasonography(Not Applicable) - Natacha Walls MD s Endoscopic Retrograde Cholangiopancreatogram(Not Applicable) - Natacha Walls MD Ordered Studies 12/30/19 17:15 US gallbladder Stat IMPRESSION: Cholelithiasis without sonographic evidence of acute cholecystitis. 12/31/19 09:54 MR MRCP Urgent 01/01/20 [place] ERCP biliary ductal Routine 01/01/20 17:17 US upper EUS PACS images Routine Hospital Course (1) Abdominal pain: (2) Elevated LFTs: (3) Choledocholithiasis: (4) Cholelithiasis: 54 y/o male presents with abdominal pain radiating to the chest. Abdominal pain in the upper abdomen and lower chest, radiating to the left side of chest. He recently had a non-ST elevation myocardial infarction with a stent to the right coronary artery. His initial troponin negative. He had some EKG changes with T-wave inversions in inferior leads on admission. Needed to rule out acute coronary syndrome because of recent history and ekg changes. Followed serial enzymes, echocardiogram ordered. Gallbladder ultrasound showed gallstones and he also had some right upper quadrant abdominal tenderness, could be biliary colic versus cholecystitis. Empirically started on IV Zosyn on admission. Repeated LFTs a.m. Consult surgery and GI in a.m. ERCP /MRCP as per GI. AST, ALT elevated in the morning, GI recommends MRCP. MRCP unremarkable, plan for ERCP/ EUS by GI Per cardiology, given recent stent to RCA, patient has to remain on dual antiplatelet therapy during any procedure. Patient is currently s/p EUS/ERCP w/ GI (01/01/20). CBD stones removed, CBD and PD stents placed. Recommend: Repeat ERCP in 3 months to exchange the stent. Surgery for Lap hermilo once cleared from Cardiology to hold antiplatelets. (5) Status post insertion of drug-eluting stent into right coronary artery for coronary artery disease: History of coronary artery disease, recently in October he had RCA stent. He recently had a non-ST elevation myocardial infarction with a stent to the right coronary artery. He had some EKG changes with T-wave inversions in inferior leads on admission. Continue his home medication of aspirin, statin, Brilinta, lisinopril, metoprolol. Troponin x3 negative. Cardiology consulted. Echocardiogram obtained, shows normal LV function, EF 55 to 60%, LV normal in size, left ventricular wall motion is normal, right ventricular systolic function is normal. Given his recent stent to RCA, patient has to remain on dual antiplatelet therapy (ASA and Brilinta ) during any GI work-up. Hyperlipidemia. Continue statin. Hypertension. Continue lisinopril, metoprolol. Will monitor the blood pressure. Total Time Total Time Spent Total Time Spent (In Minutes): 40 Total Time Includes: Examination of the Patient, Discharge Planning, Medication Reconciliation and Communication With Other Providers Discharge Plan Discharge Items Patient Disposition: Home - Self-Care Reason For Visit: CHEST PAIN AND ABD PAIN Discharge Diagnosis: Choledocholithiasis, cholelithiasis, elevated LFTs Activity: Per Instructions section Non-emergency contact: Primary Care Provider, Surgeon and Manager Strategic Call non-emergency contact if: you have any medication questions and your symptoms worsen Follow-up/Referrals: Osmany Rader DO [Primary Care Provider] - (Date & Time 01/08/2020 11:20 AM Provider Osmany Rader DO Department [facility] ) Diet: Heart Healthy, Low Fiber and Low Fat Addtl Attending Provider Instructions: Follow-up with primary care doctor on January 07, appointment is already scheduled for you. Continue antibiotic for next few days, Augmentin, as prescribed. 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 You will be contacted about the appointment. Eventually you will need surgery for gallbladder removal. Ideally you should not be on both of antiplatelets, aspirin and Brilinta at that time. Do not discontinue any of your medications on your own. Discuss with your pier runner or primary care doctor any medication changes. Pending Studies at Discharge: No Stand-Alone Forms: My [facility], Smoking Cessation Medications and DC Order Prescriptions: New amoxicillin-pot clavulanate [Augmentin] 875-125 mg tablet 1 tab PO Q12H Qty: 4 RF: 0 Continued atorvastatin 80 mg tablet 80 mg PO QAM RF: 0 aspirin 81 mg tablet,delayed release (DR/EC) 81 mg PO QAM RF: 0 lisinopril 10 mg tablet 10 mg PO QAM RF: 0 nitroglycerin [Nitrostat] 0.4 mg tablet, sublingual See Rx Instructions .ROUTE .COMPLEX PRN (Reason: Chest Pain) RF: 0 metoprolol tartrate 25 mg tablet 25 mg PO BID RF: 0 Brilinta 90 mg tablet 90 mg PO BID RF: 0 Discharge Orders: Discharge Order (Routine); Ordered 01/02/20 Ordered By: Diego Corona/Other Patient Handouts: Low-Fat Cooking Tips, What Are Gallstones, Treating Gallstones, Adding Flavor to Low-Fat Meals, ERCP Dc, Discharge Instructions for Gallstones, ED Diet, Low Fat, ED Low-Cholesterol Diet Admission Data Admit Date/Time: 12/30/19 20:36 Attending Provider: Diego Coulter Admit Provider: Titus Calderon Primary Care Provider: Omsany Rader Other Providers: Yfn Rivero ; Titus Calderon ; Ej Callahan ; Alva Robles ; Kenna Constantino ; Anastacio Armenta ; Kamron Buckley ; Cora Peraza ; Geoff Bautista ; Jasmin Hines ; Chico Martel Jr ; Annelise Xiong ; Guillermina Dewitt ; Jason Sanders ; Ozzy Ruiz ; Eliseo Zapata ; Segundo Crane ; Kamron Lott ; Ej Trimble ; Raya Ang ; Vera Goldsmith ; Toi Koehler ; July Todd ; Delta Sheikh. Other Interventions: Discharge Summary Assessment (RN) Last Done: 01/02/20 13:54
[2020-01-02 14:25] LABS: Alpha 1 Antitrypsin 162 mg/dL (83-199); Anti Nuclear Antibody Screen NEGATIVE (NEGATIVE); Ceruloplasmin 30 mg/dL (18-36); Hepatitis A Antibody IgM NON-REACTIVE (NON-REACTIVE); Hepatitis B Core Antibody IgM NON-REACTIVE (NON-REACTIVE); Smooth Muscle Antibody NEGATIVE (NEGATIVE)
== END 2020-01-02 16:20 | disposition home or self-care (01) | DRG 446 ==
LOC: ED 16:57 → 2S 20:36 → SUATTDRO 20:36 → 2S 21:49